=== PATIENT | female | born 1950 | race Caucasian/White ===

== ENCOUNTER → 2016-05-03 | Outpatient (REF) | payer MEDICARE, OTHER | LOC: M SFHCWAGY 13:38 | PROVIDERS: ATTEND Nurse Practitioner Women's Health | DX: Z12.4 Encounter for screening for malignant neoplasm of cervix (principal) ==

== ENCOUNTER → 2016-05-03 | Outpatient (CLI) | payer MEDICARE, BC ==
--- NOTE | 2016-05-03 14:54 | REPMRS ---
Patient History The patient states she had a clinical breast exam in 05/02 Patient is postmenopausal and had first child at age 36. No known family history of cancer. Digital Woman Screen Mammo: May 03, 2016 - Exam #: [id number] Bilateral CC and MLO view(s) were taken. Technologist: Poly Lawton, Technologist Prior study comparison: April 06, 2015, digital woman screen mammo performed at [facility] to [facility]. December 29, 2013, digital woman screen mammo performed at [facility] to [facility]. November 28, 2012, digital woman screen mammo performed at [facility] to [facility]. FINDINGS: There are scattered fibroglandular densities. There has been no change in the appearance of the mammogram from the prior studies. There is a mild amount of scattered fibroglandular density which is fairly symmetric. There is no interval development of dominant mass, architectural distortion, or clustered microcalcification suggestive of malignancy. ASSESSMENT: BI-RADS/ACR category 1 mammogram. Negative. Recommendation Routine screening mammogram in 1 year (for women over age 40). This mammogram was interpreted with the aid of an FDA-approved computer-aided dectection system. Electronically Signed By: Talon Tucker MD 05/03/16 [id number]
== END ==
LOC: M WHC 13:17
PROVIDERS: ATTEND Nurse Practitioner Women's Health
DX: Z12.31 Encounter for screening mammogram for malignant neoplasm of breast (principal); Z78.0 Asymptomatic menopausal state; Z12.4 Encounter for screening for malignant neoplasm of cervix
CPT/HCPCS: G0101; G0123; G0202

== ENCOUNTER → 2016-09-13 | Outpatient (RCR) | payer MEDICARE, BC, OTHER | END | disposition home or self-care (01) | LOC: M PT 08-23 11:27 → M OT 09-06 10:09 | PROVIDERS: ATTEND Family Medicine | DX: Z51.89 Encounter for other specified aftercare (principal); G45.9 Transient cerebral ischemic attack, unspecified | CPT/HCPCS: 97110; 97112; 97161; 97166; G8978; G8979; G8984; G8985 ==

== ENCOUNTER 2016-09-20 09:00 | Outpatient (RCR) | payer MEDICARE, BC, OTHER | END 2016-10-13 | LOC: M OT 09:00 | PROVIDERS: ATTEND Family Medicine | DX: Z51.89 Encounter for other specified aftercare (principal); G45.9 Transient cerebral ischemic attack, unspecified | CPT/HCPCS: 97110; 97112; G8979; G8980; G8984; G8985; G8986 ==

== ENCOUNTER → 2017-03-02 | Outpatient (CLI) | payer MEDICARE, BC, OTHER ==
--- NOTE | 2017-03-02 13:02 | REP ---
Clinical: Hypertension and high risk factors . Comparison: 02/12/2013. Technique: PA and lateral. Findings: The mediastinum and cardiac silhouette are normal. The lung corbett are clear and without acute consolidation, effusion, or pneumothorax. The skeletal structures are intact and normal. Impression: 1. No acute cardiopulmonary process. Signed by Josh Ford MD 03/02/2017 12:53 P
--- NOTE | 2017-03-02 13:08 | REP ---
Clinical: Thyroid nodules. Technique: Real time laughlin scale ultrasound examination using linear high frequency transducer. Findings: Thyroid gland is diffusely heterogeneous with multiple discrete nodules identified. The isthmus measures 1.4 mm in width. Right lobe measures 4.2 x 1.5 x 1.6 cm and includes 5.9 x 4.5 x 5.6 cm upper pole, 4.5 x 3.7 x 4.1 cm mid pole, and 18.3 x 9.5 x 12.6 mm lower pole solid nonspecific nodules Left lobe measures 4.0 x 1.2 x 1.4 cm and includes 4.3 x 2.7 x 3.0 cm upper pole, 8.0 x 3.1 x 4.8 cm and 8.7 x 4.6 x 8.4 mm mid pole solid nonspecific nodules. Impression: Multiple nonspecific thyroid nodules. Signed by Josh Ford MD 03/02/2017 12:59 P
== END ==
LOC: M RAD 12:24
PROVIDERS: ATTEND Internal Medicine Cardiovascular Disease
DX: E04.1 Nontoxic single thyroid nodule (principal); I10 Essential (primary) hypertension; Z87.891 Personal history of nicotine dependence

== ENCOUNTER → 2017-03-07 | Outpatient (REF) | payer MEDICARE, OTHER ==
[2017-03-07 10:54] LABS: ANION GAP 8 MEQ/L (8-16); BLOOD UREA NITROGEN 13 MG/DL (7-18); CALCIUM LEVEL 9.3 MG/DL (8.8-10.2); CARBON DIOXIDE LEVEL 29 MEQ/L (21-32); CHLORIDE LEVEL 97 MEQ/L (98-107); CREATININE FOR GFR 0.63 MG/DL (0.55-1.02); GLOMERULAR FILTRATION RATE > 60.0 (>45); GLUCOSE, FASTING 83 MG/DL (80-110); POTASSIUM SERUM 4.1 MEQ/L (3.5-5.1); SODIUM LEVEL 134 MEQ/L (136-145)
== END ==
LOC: M SFHCPLAZ 08:50
PROVIDERS: ATTEND Internal Medicine
DX: I10 Essential (primary) hypertension (principal)

== ENCOUNTER → 2017-04-02 | Outpatient (CLI) | payer MEDICARE, OTHER ==
[~2017-04-02] MED LIST: LIDOCAINE 1% MDV 20ML VIAL As Ordered ONE
--- NOTE | 2017-04-02 18:01 | REP ---
ULTRASOUND GUIDED BILATERAL THYROID BIOPSY: The procedure was performed under the direct supervision of Dr. Benjamin. The patient has a history of a 1.8 x 9.5 x 1.3 cm nodule in the right thyroid as well as a 9 x 5 x 8 mm nodule in the left thyroid seen on a previous ultrasound performed on 03/02/2017. The risks and benefits of the procedure were explained to the patient and informed consent was obtained. The bilateral nodules were localized using ultrasound guidance. The skin was prepped and draped in a sterile fashion. 1% Xylocaine was used as a local anesthetic. The left thyroid nodule was addressed first. Using ultrasound guidance four fine-needle aspirations were obtained using a 25-gauge needles. The right thyroid nodule was then addressed. Using ultrasound guidance four fine needle aspirations were obtained using 25-gauge needles. All samples were sent to the lab for analysis. The patient tolerated the procedure well and there were no immediate complications. After the appropriate amount of monitored convalescence the patient was discharged from the department. Reviewed by YAIR Ivory 04/04/2017 02:22 PEdited and Signed by Chadwick Benjamin MD 04/05/2017 08:21 P
== END ==
LOC: M RADPRO 08:11
PROVIDERS: ATTEND Family Medicine
DX: E04.1 Nontoxic single thyroid nodule (principal); Z87.891 Personal history of nicotine dependence; Z88.8 Allergy status to other drugs, medicaments and biological substances; Z88.1 Allergy status to other antibiotic agents; Z79.899 Other long term (current) drug therapy

== ENCOUNTER → 2017-07-04 | Outpatient (CLI) | payer MEDICARE, OTHER | LOC: M WHC 12:55 | DX: Z12.31 Encounter for screening mammogram for malignant neoplasm of breast (principal); Z78.0 Asymptomatic menopausal state | CPT/HCPCS: 77067 ==

== ENCOUNTER → 2017-08-23 | Outpatient (CLI) | payer MEDICARE, BC, OTHER ==
[2017-08-23 17:42] LABS: ANION GAP 7 MEQ/L (8-16); BLOOD UREA NITROGEN 17 MG/DL (7-18); CALCIUM LEVEL 9.1 MG/DL (8.8-10.2); CARBON DIOXIDE LEVEL 26 MEQ/L (21-32); CHLORIDE LEVEL 105 MEQ/L (98-107); CREATININE FOR GFR 0.76 MG/DL (0.55-1.30); GLOMERULAR FILTRATION RATE > 60.0 (>45); GLUCOSE, FASTING 93 MG/DL (70-100); POTASSIUM SERUM 4.2 MEQ/L (3.5-5.1); SODIUM LEVEL 138 MEQ/L (136-145)
== END ==
LOC: M WUC 13:29
DX: I10 Essential (primary) hypertension (principal)
CPT/HCPCS: 80048

== ENCOUNTER → 2018-02-20 | Outpatient (CLI) | payer MEDICARE, OTHER, BC ==
[2018-02-20 17:17] LABS: THYROXINE (T4) 5.8 UG/DL (4.5-12.0)
== END ==
LOC: M WUC 11:37
DX: E04.2 Nontoxic multinodular goiter (principal)
CPT/HCPCS: 84443

== ENCOUNTER → 2018-05-01 | Outpatient (REF) | payer MEDICARE, OTHER | LOC: M SFHCPLAZ 14:07 | PROVIDERS: ATTEND Family Medicine | DX: K52.9 Noninfective gastroenteritis and colitis, unspecified (principal) ==

== ENCOUNTER 2018-06-17 08:04 | Day surgery (SDC) | payer MEDICARE, BC, OTHER ==
[~2018-06-17] VITALS: Ht 162.6 cm; Wt 60.8 kg
[~2018-06-17 08:04] MED LIST changes: +AMLO10TA5 PO; +ATOR80TA59 PO; +COMB0.2S OU; -LIDOCAINE 1% MDV 20ML VIAL As Ordered ONE; +LOSA50TA88 PO; +NS 1,000 ML IV ONE; +OMEP40CA2 PO; +PARO5TAB PO
[2018-06-17] MEDS ORDERED: PROPOFOL 500 MG/50 ML VIAL As Ordered ONE (08:47)
[2018-06-17] MEDS ORDERED: LIDOCAINE 2% INJ 100 MG/5 ML SDV (FOR ANES.) As Ordered ONE (08:47)
--- NOTE | 2018-06-17 09:05 | ROOR ---
Patient Name: Cristina Parra Procedure Date: 06/17/2018 8:46 AM Date of : 1950 Age: 67 Room: [facility] Gender: Female Note Status: Finalized Procedure: Total Colonoscopy to Cecum Indications: Screening for colorectal malignant neoplasm Providers: Ruben Dean MD Referring MD: Ezequiel Herrera MD Requesting Provider: Medicines: Monitored Anesthesia Care Complications: No immediate complications. Procedure: Pre-Anesthesia Assessment: - The heart rate, respiratory rate, oxygen saturations, blood pressure, adequacy of pulmonary ventilation, and response to care were monitored throughout the procedure. The Colonoscope was introduced through the anus and advanced to the cecum, identified by appendiceal orifice and ileocecal valve. The colonoscopy was performed without difficulty. The patient tolerated the procedure well. The quality of the bowel preparation was excellent. Findings: The perianal and digital rectal examinations were normal. Non-bleeding internal hemorrhoids were found during retroflexion. The hemorrhoids were small and Grade I (internal hemorrhoids that do not prolapse). No other significant abnormalities were identified in a careful examination of the remainder of the colon. The exam was otherwise without abnormality on direct and retroflexion views. Impression: - Non-bleeding internal hemorrhoids. - The examination was otherwise normal on direct and retroflexion views. - No specimens collected. - The exam was otherwise normal to the cecum. Recommendation: - Patient has a contact number available for emergencies. The signs and symptoms of potential delayed complications were discussed with the patient. Return to normal activities tomorrow. Written discharge instructions were provided to the patient. - High fiber diet. - Discharge patient to home. - Continue present medications. - Repeat colonoscopy in 10 years for screening purposes. - Return to referring physician. - The findings and recommendations were discussed with the patient's family. Ruben Dean MD Ruben Dean MD 06/17/2018 9:05:14 AM This report has been signed electronically. Number of Addenda: 0 Note Initiated On: 06/17/2018 8:46 AM Estimated Blood Loss: Estimated blood loss: none.
[2018-06-17 09:25] VITALS: BP 147/82
== END 2018-06-17 09:31 | disposition home or self-care (01) ==
LOC: M OPP 08:04
PROVIDERS: ATTEND Internal Medicine Gastroenterology
DX: Z12.11 Encounter for screening for malignant neoplasm of colon (principal); K64.0 First degree hemorrhoids; R12 Heartburn; Z88.1 Allergy status to other antibiotic agents; Z79.899 Other long term (current) drug therapy; F17.210 Nicotine dependence, cigarettes, uncomplicated

== ENCOUNTER → 2018-07-05 | Outpatient (CLI) | payer MEDICARE, BC ==
[~2018-07-05] MED LIST changes: -NS 1,000 ML IV ONE
--- NOTE | 2018-07-05 18:21 | REPMRS ---
Patient History The patient states she had a clinical breast exam in 06/2018. No known family history of cancer. 3D TOMOSYNTHESIS WAS PERFORMED. Digital Woman Screen Mammo: July 05, 2018 - Exam #: [id number] Bilateral CC and MLO view(s) were taken. Technologist: Tonia Villasenor Technologist Prior study comparison: July 04, 2017, digital woman screen mammo performed at [facility] to [facility]. May 03, 2016, digital woman screen mammo performed at [facility] to [facility]. FINDINGS: There are scattered fibroglandular densities. There has been no change in the appearance of the mammogram from the prior studies. There is a mild amount of residual fibroglandular tissue which is fairly symmetric. There is no interval development of dominant mass, architectural distortion, or clustered microcalcification suggestive of malignancy. Assessment: BI-RADS/ACR category 1 mammogram. Negative Mammogram. Recommendation Routine screening mammogram in 1 year (for women over age 40). This mammogram was interpreted with the aid of an FDA-approved computer-aided dectection system. Electronically Signed By: Chadwick Benjamin MD 07/05/18 [id number]
== END ==
LOC: M WHC 13:17
PROVIDERS: ATTEND Nurse Practitioner Women's Health
DX: Z01.419 Encounter for gynecological examination (general) (routine) without abnormal findings (principal); Z12.31 Encounter for screening mammogram for malignant neoplasm of breast
CPT/HCPCS: 77063; 77067; G0101

== ENCOUNTER → 2019-11-06 | Outpatient (CLI) | payer MEDICARE, BC ==
[~2019-11-06] MED LIST changes: -AMLO10TA5 PO; +AMLO1TAB25 PO; -OMEP40CA2 PO; +OMEP40CA97 PO
--- NOTE | 2019-12-11 15:43 | DEXA ---
AP SPINE L1 - L4 1.010 -1.5 0.2 LT FEMUR TOTAL 0.721 -2.3 -0.9 LT NECK 0.747 -2.1 -0.5 RT FEMUR TOTAL 0.707 -2.4 -1.0 RT NECK 0.976 -0.4 1.2 TOTAL BODY TOTAL OTHER COMMENTS: There is low bone density of the spine and hips, The density of the spine has increased 2.2% since the initial exam on 11/01/1999. The increased 6.5% since the most recent exam on 08/23/2010. The density of the left hip has decreased 11.1% since the initial exam on 11/01/1999. The density of the left hip has decreased 5.1% since the most recent exam on 08/23/2010. The density of the right hip has decreased 13.1% since the initial exam on 11/01/1999. The density of the right hip has decreased 4.6% since the most recent exam on 08/23/2010. FOLLOW-UP: Recommendation for the next bone density exam: 2 years. KEIRY
== END ==
LOC: M WHC 10:19
PROVIDERS: ATTEND Nurse Practitioner Women's Health
DX: Z12.31 Encounter for screening mammogram for malignant neoplasm of breast (principal); Z78.0 Asymptomatic menopausal state
CPT/HCPCS: 77063; 77067; 77080; G0463

== ENCOUNTER → 2020-01-20 | Outpatient (CLI) | payer MEDICARE, BC, OTHER ==
[2020-01-20 13:37] LABS: ALT/SGPT 17 U/L (12-78); BILIRUBIN,TOTAL 0.3 MG/DL (0.2-1.0); BLOOD UREA NITROGEN 14 MG/DL (7-18); CARBON DIOXIDE LEVEL 28 MEQ/L (21-32); CHLORIDE LEVEL 103 MEQ/L (98-107); CHOLESTEROL LEVEL 278 MG/DL (<200); CHOLESTEROL RISK RATIO 3.195 (<5); CREATININE FOR GFR 0.76 MG/DL (0.55-1.30); GLOMERULAR FILTRATION RATE > 60.0 (>45); GLUCOSE, FASTING 99 MG/DL (70-100); HDL CHOLESTEROL 87 MG/DL (>40); LDL CHOLESTEROL 169 MG/DL (<100); NON-HDL-C 191 MG/DL; POTASSIUM SERUM 4.7 MEQ/L (3.5-5.1); SODIUM LEVEL 138 MEQ/L (136-145); TOTAL PROTEIN 7.4 GM/DL (6.4-8.2); TRIGLYCERIDES LEVEL 109 MG/DL (<150)
== END ==
LOC: M PLALAB 08:31
PROVIDERS: ATTEND Physician Assistant
DX: Z00.00 Encounter for general adult medical examination without abnormal findings (principal); E78.2 Mixed hyperlipidemia

== ENCOUNTER 2020-06-09 19:24 | Inpatient (IN) | payer MEDICARE, BC, OTHER ==
[~2020-06-09] VITALS: Ht 162.6 cm; Wt 70.2 kg
--- OUTSIDE RECORDS SUMMARY | 2020-06-09 19:29 | CCD ---
Author Author [facility] Organization 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 Carding Machine Operator Name Role Phone Arlette Mullen Unavailable PROBLEMS Type Condition ICD9-CM Code QNC48-DQ Code Onset Dates Condition S tatus W/U Status Risk SNOMED Code Notes Problem Osteoporosis M81.0 Active confirmed 1212431 6 Problem Hemorrhoids K64.9 Active confirmed 25690399 Problem Hypertension I10 Active confirmed 7668550 3 Problem Thyroid nodule E04.1 Active confirmed 92212 5005 Problem Smoker unmotivated to quit F17.200 Active confirmed 38475139 Problem Depression F32.9 Active confirmed 71062227 Problem Low back pain M54.5 Active confirmed 554745 007 Problem Tobacco use disorder Z72.0 Active confirmed 26877528 Problem Cerebrovascular accident (CVA), unspecified mechanism I63.9 Active confirmed 664471987 ALLERGIES Allergen (clinical drug ingredient) Drug/Non Drug Allergy do cumented on EMR Reaction Allergy Type Onset Date Status risedronate Actonel(NDC Code:[address]-37) explosive diarrhea Drug A llergy Active raloxifene Evista(NDC Code:[address]-15) persistent vomiting Drug Al lergy Active erythromycin Erythromycin(ND Code:[address]-03) hives,rash all over Drug Allergy Active ENCOUNTERS from 1950 to 2020-05-25 Encounter Location Date Provider Diagnosis [facility] Resident [address] [place] [address] 08 May, 2020 Arlette Sebas Allergic conjunctivitis of b oth eyes H10.13 and Contact dermatitis and eczema L25.9 IMMUNIZATIONS Vaccine Route Administration Date Status Influenza (18 yrs & older) Flublok IM Intramuscular Jan 16, 2019 Administered Influenza (High Dose 65 & up) IM Intramuscular Feb 12, 2017 A dministered Influenza (High Dose 65 & up) IM Intramuscular Mar 06, 2016 A dministered Zoster 0.65mL (Zostavax) Unknown Feb 03, 2015 Adminis tered Pneumococcal Adult 0.5mL (Pneumovax 23) IM Intramuscular Jan 16, 2019 Administered Pneumococcal 0.5mL (Prevnar 13) IM Intramuscular Feb 12, 2017 Administered Influenza (6mo & up) Fluzone IM Intramuscular Feb 03, 2015 Ad ministered Influenza (6mo & up) Fluzone IM Intramuscular Jan 21, 2013 Ad ministered SOCIAL HISTORY Tobacco Use: Social History Observation Description Date Details (start date - stop date) Former Smoker Sex Assigned At : Social History Observation Description Sex Assigned At Unknown Education: Question Answer Notes Level of Education: High School Audit Question Answer Notes Total Score: 4 Interpretation: Alcohol Education Roman Catholic: Question Answer Notes Roman Catholic 21 Gnosticist Sexual Hx: Question Answer Notes Had sex in the last 12 months (vaginal, oral, or anal)? No LMP: post menopause Have you ever had an STD? No Drug and Alcohol Question Answer Notes Total Score: 0 Interpretation: No problems reported Alcohol Screening: Question Answer Notes Did you have a drink containing alcohol in the past year? Ye s Points 4 Interpretation Positive How often did you have six or more drinks on one occas ion in the past year? Never (0 points) How many drinks did you have on a typica l day when you were drinking in the past year? 1 or 2 (0 points) How often did you have a drink containing alcohol in t he past year? Four or more times a week (4 points) Tobacco Use: Question Answer Notes Are you a: former smoker How long has it been since you last smoked? 1-5 years August 2016 REASON FOR REFERRAL No Information VITAL SIGNS No information MEDICATIONS Medication SIG (Take, Route, Frequency, Duration) Notes Start Da te End Date Status Olopatadine HCl 0.1 % 1 drop into affected eye Oph thalmic Twice a day for 30 Days May, Active Senokot S 8.6-50 MG 1 tablet in the evening as n eeded Orally Once a day for 30 day(s) Jan, Not-Taking Nicoderm CQ 14 MG/24HR 1 patch to skin Transdermal Once a day fo r 30 day(s) August, Not-Taking Vitamin D (Cholecalciferol) 1000 UNIT 1 capsule Orally Once a day Active Blood Pressure Cuff 1 as directed Left Arm Daily for 30 day(s) Active Losartan Potassium 50 MG 1 tablet Orally Once a day Active Lipitor 80 MG 1 tablet Orally Once a day for 90 days 21 2015 Active Paxil 10 mg 1 tablet Orally Once a day for 90 days Active Calcium 600 + D 600-400 MG-UNIT 1 tablet Orally Once a day Not-Taking Omeprazole 40 MG 1 capsule Orally Once a day for 90 days Active Aleve 220 MG 1 tablet Orally every 12 hrs as needed Active Simvastatin 10 MG 1 tablet in the evening Orally Once a day for 90 day(s) Jan, Active AmLODIPine Besylate 10 MG 1 tablet Orally Once a day 2016 Active Combigan 0.2-0.5 % 1 drop into affected eye Ophthalmic once a day Not-Taking Triamcinolone Acetonide 0.025 % 1 application External ly Once a day for 7 day(s) May, Active PROCEDURES No Information RESULTS No Results REASON FOR VISIT refill MEDICAL (GENERAL) HISTORY Type Description Date Medical History DDD Medical History Glaucoma Medical History Depression Medical History Hiatal Hernia Medical History GERD Medical History Osteoarthritis Medical History Osteoporosis Medical History Patient has 12.1% ASCVD risk 2012 Medical History Closed rib fracture. Medical History CVA 08/30 Surgical History eye surgery as a child Hospitalization History Stroke 08/15/16-08/18/16 Goals Section No Information Health Concerns No Information MEDICAL EQUIPMENT No Information MENTAL STATUS No Information FUNCTIONAL STATUS No Information ASSESSMENTS Encounter Date Diagnosis Assessment Notes Treatment Notes Treatm ent Clinical Notes May, Allergic conjunctivitis of both eyes (ICD-10 - H 10.13) May, Contact dermatitis and eczema (ICD-10 - L25.9) PLAN OF TREATMENT Medication Medication Name Sig Start Date Stop Date Olopatadine HCl 0.1 % 1 drop into affected eye Oph thalmic Twice a day for 30 Days May, Triamcinolone Acetonide 0.025 % 1 application External ly Once a day for 7 day(s) May, Insurance Providers Payer Name Payer Address Payer Phone Insured Name Patient Relati onship to Insured Coverage Start Date Coverage End Date MEDICARE Part A and B [address] [facility] [id number] [phone] TRANG DELGADO [facility] [address] [facility] [id number] [phone] TRANG DELGADO [id number]
--- OUTSIDE RECORDS SUMMARY | 2020-06-09 19:29 | CCD ---
Continuity of Care Document (CCD) Created on: 03/30/2020 Cristina Parra External Reference #: [id number] : 1950 Sex: Female Author Author Cristina GRECO PA Organization Unknown Address [address] [place] [address], [facility] [place] [address] Phone [phone] Care Team Providers Care Epic Cadence Analyst Name Role Phone Janie Ann SHILPI AUTM [phone] Arlette Mullen PA-C AUTM [phone] Problems Active Problems Provider Date Cerebrovascular disease Srikanth Taylor MD Onset: 7 Electrocardiogram abnormal Srikanth Taylor MD Onset: 2016 Essential hypertension Srikanth Taylor MD Onset: 02/26/2017 Mitral valve disorder Srikanth Taylor MD Onset: 02/26/2017 Ex-smoker Srikanth Taylor MD Onset: 02/26/2017 Difficulty breathing Srikanth Taylor MD Onset: 05/15/2017 Non-toxic multinodular goiter Srikanth Taylor MD Onset: Benign hypertensive heart disease without congestive h eart failure Srikanth Taylor MD Onset: 05/15/2017 Heart murmur Srikanth Taylor MD Onset: 05/15/2017 Dizziness and giddiness Srikanth Taylor MD Onset: 8 Dietary management surveillance SIRISHA Ascencio Onset: 03/13/2018 Obesity SIRISHA Ascencio Onset: 03/17/2019 Social History Type Date Description Comments Sex Unknown ETOH Use Wine about 10 glasses per week Tobacco Use Start: Unknown Patient is a current smoker, smo kes every day currently 1/4 to 1/2 ppd, in past at most up to 1 ppd, since age 18 Smoking Status Reviewed: 03/30/20 Patient is a current smoker, smokes every day currently 1/4 to 1/2 ppd, in past at most up to 1 ppd, since age 18 Exercise Type/Frequency Fully active: Ab le to carry on all performance without restriction Exercise Type/Frequency Does housework daily Exercise Type/Frequency Walks sporadically Exercise Limitations Back Pain Exercise Limitations Imbalance Allergies, Adverse Reactions, Alerts Active Allergies Reaction Severity Comments Date Erythromycin rash 02/26/2017 Medications Active Medications SIG Qnty Indications Ordering Provide r Date Simvastatin 10mg Tablets 1 by mouth every day at bedtime Arlette Mullen PA-C 03/29/2020 Vitamin C 500mg Tablets 1 by mouth every day Unknown 03/29/2020 Vitamin D 25mcg (1000 Ut) Tablets 1 by mouth every day Unknown 03/29/2020 Benadryl Allergy 25mg Tablets 1 by mouth daily at bedtime as needed Unknown 03/29 Travatan Z 0.004% Solution one drop both eyes at bedtime Janie Ann Y, OD 03/16/2019 Amlodipine Besylate 10mg Tablets 1 by mouth every day 90tabs Srikanth Taylor MD 08/24/2017 Aspirin Adult Low Dose 81mg Tablet s DR 1 by mouth every other day Unknown 018 Losartan Potassium 50mg Tablets 1 by mouth every day 90tabs Srikanth Taylor MD 05/15/2017 Paxil 10mg Tablets 1 by mo uth every day Unknown 02/25/[address] 1 by mouth every day Unknown 02/25/2017 Aleve 220mg Capsules as neede d Unknown 02/25/2017 Combigan 0.2-0.5% Solution 1 drop each eye twice a day Unknown 02/25/2017 Immunizations Description No Information Available Vital Signs Date Vital Result Comment 03/30/2020 11:18am Weight 130.00 lb Height 64 inches 5'4" BMI (Body Mass Index) 22.3 kg/m2 03/17/2019 11:25am Weight 132.00 lb Height 64 inches 5'4" BMI (Body Mass Index) 22.7 kg/m2 Heart Rate 69 /min BP Systolic Sitting 120 mmHg adult cuff, Ra BP Diastolic Sitting 66 mmHg adult cuff, Ra Results Test Acquired Date Facility Test Result H/L Range Note CMP 01/20/2020 [facility] - not interfaced (315)- - Albumin Serum/Plasma 4.0 Alt - SGPT 17 Calcium Ser/Plasma Mass/Vol 10.0 Carbon Dioxide Ser/Plasm 28 Chloride Serum/Plasma 103 Alkaline Phosphatase 56 Potassium 4.7 Protein Total 7.4 Sodium 138 Ast - Sgot 18 BUN - Urea Nitrogen 14 Glucose 99 70-100 Creatinine For GFR >60.0 Lipid Profile/Cardiac Risk Pro 01/20/2020 [facility] - not interfaced (315)- - Triglycerides 109 <150 Cholesterol 278 High <200 HDL 87 >40.0 LDL Cholesterol 169 Chol/HDL Ratio 3.195 <5 Procedures Description No Information Available Medical Devices Description No Information Available Encounters Description No Information Available Assessments Date Code Description Provider 03/30/2020 I11.9 Hypertensive heart disease witho ut heart failure SIRISHA Raphael 03/30/2020 R94.31 Abnormal electrocardiogram [ECG] [EKG] SIRISHA Raphael 03/30/2020 Z71.3 Dietary counseling and surveilla nce SIRISHA Raphael Plan of Treatment Future Appointment(s):* 03/31/2021 10:45 am - SIRISHA Raphael at Main Office 03/30/2020 - SIRISHA Raphael* I11.9 Hypertensive heart disease without heart failure * R94.31 Abnormal electrocardiogram [ECG] [EKG] * Z71.3 Dietary counseling and surveillance * All * Follow up:* Follow up in 1 year Functional Status Functional Condition Comment Date Status Independent with all ADL's Activ e Mental Status Description No Information Available Referrals Description No Information Available
--- OUTSIDE RECORDS SUMMARY | 2020-06-09 19:30 | CCD | Continuity of Care Document ---
Author Organization Unknown Address Unknown Phone Unavailable Care Team Providers Care Tour Narrator Name Role Phone Ezequiel Herrera MD AUTM [phone] Ann Janie Marcus DOBBINS AUTM [phone] Problems Active Problems Provider Date Cerebrovascular disease [...] glasses per week Tobacco Use Start: Unknown End: Unknown Patient is a former smoker Started smoking at age 18, stopped at age 65, smoked up to 1/2 to 1ppd Tobacco Use Start: Unknown Patient is a current smoker, smo kes some days depends on the day Smoking Status Reviewed: 03/17/19 Patient is a current smoker, smokes some days depends on the day Exercise Type/Frequency Fully active: Ab le to carry on all performance without restriction Exercise Type/Frequency Does housework daily Exercise Type/Frequency Walks sporadically Exercise Limitations Back Pain Exercise Limitations Imbalance Allergies, Adverse Reactions, Alerts Active Allergies Reaction Severity Comments Date Erythromycin rash 02/26/2017 Medications Active Medications SIG Qnty Indications Ordering Provide r Date Travatan Z 0.004% Solution one drop both eyes at bedtime AnnJanie Y, OD 03/16/2019 Amlodipine Besylate 10mg Tablets 1 by mouth every day 90tabs Srikanth Taylor MD 08/24/2017 Aspirin Adult Low Dose 81mg Tablet s DR 1 by mouth every other day Unknown 018 Losartan Potassium 50mg Tablets 1 by mouth every day 90tabs Srikanth Taylor MD 05/15/2017 Lipitor 80mg Tablets 1 by mouth every day Unknown 02/25/2017 Paxil 10mg Tablets 1 by mo uth every day Unknown 02/25/[address] 1 by mouth every day Unknown 02/25/2017 Aleve 220mg Capsules as neede d Unknown 02/25/2017 Combigan 0.2-0.5% Solution 1 drop each eye twice a day Unknown 02/25/2017 Immunizations Description No Information Available Vital Signs Date Vital Result Comment 03/17/2019 11:25am Weight 132.00 lb Height 64 inches 5'4" BMI (Body Mass Index) 22.7 kg/m2 Heart Rate 69 /min BP Systolic Sitting 120 mmHg adult cuff, Ra BP Diastolic Sitting 66 mmHg adult cuff, Ra 03/13/2018 11:14am Weight 146.00 lb Height 64 inches 5'4" BMI (Body Mass Index) 25.1 kg/m2 BP Systolic Sitting 124 mmHg adult cuff/LA BP Diastolic Sitting 76 mmHg adult cuff/LA Results Test Acquired Date Facility Test Result H/L Range Note CMP 01/20/2020 [facility] - not interfaced (315)- - Albumin Serum/Plasma 4.0 Alt - SGPT 17 Calcium Ser/Plasma Mass/Vol 10.0 Carbon Dioxide Ser/Plasm 28 Chloride Serum/Plasma 103 Alkaline Phosphatase 56 Potassium 4.7 Protein Total 7.4 Sodium 138 Ast - Sgot 18 BUN - Urea Nitrogen 14 Glucose 99 70-100 Creatinine For GFR >60.0 Lipid Profile/Cardiac Risk Pro 01/20/2020 [facility] - not interfaced (315)- - Triglycerides 109 <150 Cholesterol 278 High <200 HDL 87 >40.0 LDL Cholesterol 169 Chol/HDL Ratio 3.195 <5 Procedures Description No Information Available Medical Devices Description No Information Available Encounters Description No Information Available Assessments Description No Information Available Plan of Treatment Future Appointment(s):* 03/30/2020 10:45 am - SIRISHA Raphael at Main Office 03/17/2019 - SIRISHA Ascencio* I11.9 Hypertensive heart disease without heart failure * R94.31 Abnormal electrocardiogram [ECG] [EKG]* Recommendations:* No significant change. No further workup required. * Z71.3 Dietary counseling and surveillance* Recommendations:* Recommend adopting a more whole foods, plant-based diet in addition to moderate exercise a minimum of 30 minutes 6 days a week. In order to optimize cardiovascular health please be conscious of processed foods, alcohol (no more than two dr inks a day for men and one drink a day for women), salt (<2000 mg/d), oils, saturated fat/animal products, and highly refined carbohydrates such as breads, pastas, and sweets. * All * Follow up:* Follow up in 12 months. Functional Status Functional Condition Comment Date Status Independent with all ADL's Activ e Mental Status Description No Information Available Referrals Description No Information Available
--- OUTSIDE RECORDS SUMMARY | 2020-06-09 19:30 | CCD ---
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 Name Role Phone BRI, A EVARISTO PA Unavailable Unavailable LETTIERE, A EVARISTO PA Unavailable Unavailable LETTIERE, A EVARISTO PA Unavailable Unavailable LETTIERE, A EVARISTO PA Unavailable Unavailable LETTIERE, A EVARISTO PA Unavailable Unavailable LETTIERE, A EVARISTO PA Unavailable Unavailable LETTIERE, A EVARISTO PA Unavailable Unavailable LETTIERE, A EVARISTO PA Unavailable Unavailable LETTIERE, A EVARISTO PA Unavailable Unavailable LETTIERE, A EVARISTO PA Unavailable Unavailable LETTIERE, A EVARISTO PA Unavailable Unavailable LETTIERE, A EVARISTO PA Unavailable Unavailable LETTIERE, A EVARISTO PA Unavailable Unavailable LETTIERE, A EVARISTO PA Unavailable Unavailable LETTIERE, A EVARISTO PA Unavailable Unavailable LETTIERE, A EVARISTO PA Unavailable Unavailable LETTIERE, A EVARISTO PA Unavailable Unavailable LETTIERE, A EVARISTO PA Unavailable Unavailable LETTIERE, A EVARISTO PA Unavailable Unavailable LETTIERE, A EVARISTO PA Unavailable Unavailable LETTIERE, A EVARISTO PA Unavailable Unavailable LETTIERE, A EVARISTO PA Unavailable Unavailable LETTIERE, A EVARISTO PA Unavailable Unavailable LETTIERE, A EVARISTO PA Unavailable Unavailable LETTIERE, A EVARISTO PA Unavailable Unavailable LETTIERE, A EVARISTO PA Unavailable Unavailable LETTIERE, A EVARISTO PA Unavailable Unavailable LETTIERE, A EVARISTO PA Unavailable Unavailable LETTIERE, A EVARISTO PA Unavailable Unavailable Re-disclosure Warning The records that you are about to access may contain information from federally-assisted alcohol or drug abuse programs. If such information is present, then the following federally mandated warning applies: This information has been disclosed to you from records protected by federal confidentiality rules (42 CFR part 2). The federal rules prohibit you from making any further disclosure of this information unless further disclosure is expressly permitted by the written consent of the person to whom it pertains or as otherwise permitted by 42 CFR part 2. A general authorization for the release of medical or other information is NOT sufficient for this purpose. The Federal rules restrict any use of the information to criminally investigate or prosecute any alcohol or drug abuse patient.The records that you are about to access may contain highly sensitive health information, the redisclosure of which is protected by Article 27-F of the [facility] Public Health law. If you continue you may have access to information: Regarding HIV / AIDS; Provided by facilities licensed or operated by the [facility] Office of Mental Health; or Provided by the [facility] Office for People With Developmental Disabilities. If such information is present, then the following [facility] mandated warning applies: This information has been disclosed to you from confidential records which are protected by state law. State law prohibits you from making any further disclosure of this information without the specific written consent of the person to whom it pertains, or as otherwise permitted by law. Any unauthorized further disclosure in violation of state law may result in a fine or assisted sentence or both. A general authorization for the release of medical or other information is NOT sufficient authorization for further disc losure. Family History Family Member Name Family Member Gender Family Member Status Date o f Status Description Data Source(s) Unknown Male Problem MEDENT ([facility]) Unknown Male Problem MEDENT ([facility]) at age 63 Unknown Female Problem MEDENT ([facility], [facility]) Encounters Encounter Providers Location Date Indications Data Source(s ) Unknown [address] [facility] [place] [address] 05/24/2020 12:00:00 AM EST eCW1 ([facility]) Unknown [address] [facility] [place] [address] 02/09/2020 12:00:00 AM EDT eCW1 ([facility]) Unknown [address] [facility] [place] [address] 02/02/2020 12:00:00 AM EDT eCW1 ([facility]) Outpatient Attender: EVARISTO grewal 11/19/2019 11:50:00 AM EDT MEDENT ([facility]) ( [place]) [facility] 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 Exam [address] [place] [address] 11/06/2019 12:00:00 AM EDT eCW1 ([facility]) [facility] [place] [address] [facility] [place] [address] 07/14/2019 12:00:00 AM EDT eCW1 ([facility]) [facility] [address] [place] [address] 07/08/2019 12:00:00 AM EDT eCW1 ([facility]) Immunizations Vaccine Date Status Description Data Source(s) Tdap 11/19/2019 12:05:00 PM EDT completed M EDENT ([facility], [facility]) Medications Medication Brand Name Start Date Product Form Dose Route Admi nistrative Instructions Pharmacy Instructions Status Indications Reaction Description Data Source(s) olopatadine 1 MG/ML Ophthalmic Solution 0.1 % OLOPATADINE HC L 05/25/2020 12:00:00 AM EST drops 5 INSTILL ONE DROP TWO TIME S A DAY IN THE AFFECTED EYE INSTILL ONE DROP TWO TIMES A DAY IN THE AFFECTED EYE SOLD: 05/26/2020 [facility] 0.025 % 05/25/2020 12:00:00 AM EST cream 15 APPLY ONCE DAILY FOR 7 DAYS APPLY ONCE DAILY FOR 7 DAYS SOLD: 05/26/2020 [facility] olopatadine 1 MG/ML Ophthalmic Solution Olopatadine HC l 0.1 % Olopatadine HCl 0.1 % 05/21/2020 12:00:00 AM EST 1.0 {drop_into_affected_eye} active Olopatadine HCl 0.1 % eCW1 ([facility]) Triamcinolone Acetonide 0.25 MG/ML Topic al Lotion Triamcinolone Acetonide 0.025 % Triamcinolone Acetonide 0.025 % 05/21/2020 12:00:00 AM EST 1.0 {application} active Triamcinolone Acetonide 0.025 % eCW1 ([facility]) 0.5 % 04/30/2020 12:00:00 AM EST drops 15 INSTILL ONE DROP INTO EACH EYE TWO TIMES A DAY DIRECTED INSTILL ONE DROP INTO EACH EYE TWO TIMES A DAY DIRECTED SOLD: 05/01/2020 [facility] 3.5-400-10,000 [id number] 04/13/2020 12:00:00 AM EST oin tment 3 APPLY A THIN LAYER INTO LEFT EYE TWO TIMES A DAY APPLY A THIN LAYER INTO LEFT EYE TWO TIMES A DAY SOLD: 04/13/2020 [facility] Diphenhydramine Hydrochloride 25 MG Oral Tablet [Benadryl] B enadryl Allergy 03/29/2020 12:00:00 AM EST ORAL active MEDENT ([facility]) Cholecalciferol 1000 UNT Oral Tablet Vitamin D 03/29/2020 12:00:00 A M EST ORAL active MEDENT ([facility]) Simvastatin 10 MG Oral Tablet Simvastatin 03/29/2020 12:00:00 AM EST ORAL active MEDENT ([facility]) Ascorbic Acid 500 MG Oral Tablet Vitamin C 03/29/2020 12:00:00 AM EST ORAL active MED[facility] ([facility]) 10 mg 03/19/2020 12:00:00 AM EST tablet 90 TAKE ONE TABLET BY MOUTH EVERY DAY TAKE ONE TABLET BY MOUTH EVERY DAY SOLD: 03/20/2020 [facility] 50 mg 03/19/2020 12:00:00 AM EST tablet 90 TAKE ONE TABLET BY MOUTH EVERY DAY TAKE ONE TABLET BY MOUTH EVERY DAY SOLD: 03/20/2020 [facility] 10 mg 02/11/2020 12:00:00 AM EDT tablet 90 TAKE ONE TABLET BY MOUTH EVERY EVENING TAKE ONE TABLET BY MOUTH EVERY EVENING SOLD: 02/12/2020 [facility] 10 mg 02/11/2020 12:00:00 AM EDT tablet 90 TAKE ONE TABLET BY MOUTH EVERY EVENING TAKE ONE TABLET BY MOUTH EVERY EVENING SOLD: 05/19/2020 [facility] Paroxetine Hydrochloride 10 MG Oral Tablet PAROXETINE HCL 02/10/2020 12:00:00 AM EDT tablet 90 TAKE ONE TABLET BY MOUTH ONC E DAILY TAKE ONE TABLET BY MOUTH ONCE DAILY SOLD: 05/19/2020 [facility] Paroxetine Hydrochloride 10 MG Oral Tablet PAROXETINE HCL 02/10/2020 12:00:00 AM EDT tablet 90 TAKE ONE TABLET BY MOUTH ONC E DAILY TAKE ONE TABLET BY MOUTH ONCE DAILY SOLD: 02/11/2020 [facility] Simvastatin 10 MG Oral Tablet Simvastatin 10 MG 02/10/2020 12:00:00 AM EDT 1.0 {tablet_in_the_evening} active Simvast atin 10 MG eCW1 ([facility]) Simvastatin 10 MG Oral Tablet Simvastatin 10 MG 02/10/2020 12:00:00 AM EDT 1.0 {tablet_in_the_evening} active Simvast atin 10 MG eCW1 ([facility]) 40 mg 02/10/2020 12:00:00 AM EDT capsule,delayed release (DR/EC) 90 TAKE ONE CAPSULE BY MOUTH ONCE DAILY TAKE ONE CAPSULE BY MOUTH ONCE DAILY SOLD: 02/11/2020 [facility] 40 mg 02/10/2020 12:00:00 AM EDT capsule,delayed release (DR/EC) 90 TAKE ONE CAPSULE BY MOUTH ONCE DAILY TAKE ONE CAPSULE BY MOUTH ONCE DAILY SOLD: 05/23/2020 [facility] Simvastatin 10 MG Oral Tablet Simvastatin 10 MG 02/10/2020 12:00:00 AM EDT 1.0 {tablet_in_the_evening} active Simvast atin 10 MG eCW1 ([facility]) 0.2-0.5 % 12/12/2019 12:00:00 AM EDT drops 30 INSTILL ONE DROP INTO EACH EYE TWO TIMES A DAY DIRECTED INSTILL ONE DROP INTO EACH EYE TWO TIMES A DAY DIRECTED SOLD: 12/15/2019 [facility] 0.004 % 12/12/2019 12:00:00 AM EDT drops 2 INSTILL ONE DROP INTO EACH EYE ONCE DAILY AT BEDTIME DIRECTED INSTILL ONE DROP INTO EACH EYE ONCE LENY Y AT BEDTIME DIRECTED SOLD: 12/15/2019 [facility] 0.004 % 12/12/2019 12:00:00 AM EDT drops 2 INSTILL ONE DROP INTO EACH EYE ONCE DAILY AT BEDTIME DIRECTED INSTILL ONE DROP INTO EACH EYE ONCE LENY Y AT BEDTIME DIRECTED SOLD: 03/20/2020 [facility] 0.004 % 12/12/2019 12:00:00 AM EDT drops 2 INSTILL ONE DROP INTO EACH EYE ONCE DAILY AT BEDTIME DIRECTED INSTILL ONE DROP INTO EACH EYE ONCE LENY Y AT BEDTIME DIRECTED SOLD: 05/11/2020 [facility] Cephalexin 500 MG Oral Capsule CEPHALEXIN 11/19/2019 12:00:00 AM EDT capsule 40 TAKE TWO CAPSULES BY MOUTH TWICE A DAY FOR 10 DAYS JOANNA E TWO CAPSULES BY MOUTH TWICE A DAY FOR 10 DAYS SOLD: 11/19/2019 [facility] Cephalexin 500 MG Oral Tablet Cephalexin 11/19/2019 12:00:00 AM EDT ORAL active MEDENT ([facility]) 10 mg 09/09/2019 12:00:00 AM EDT tablet 90 TAKE ONE TABLET BY MOUTH EVERY DAY TAKE ONE TABLET BY MOUTH EVERY DAY SOLD: 09/11/2019 [facility] Paroxetine Hydrochloride 10 MG Oral Tablet PAROXETINE HCL 09/09/2019 12:00:00 AM EDT tablet 90 TAKE ONE TABLET BY MOUTH MELODY DAY TAKE ONE TABLET BY MOUTH EVERY DAY SOLD: 12/05/2019 [facility] 80 mg 08/25/2019 12:00:00 AM EDT tablet 90 TAKE ONE TABLET BY MOUTH EVERY DAY TAKE ONE TABLET BY MOUTH EVERY DAY SOLD: 08/26/2019 [facility] 40 mg 07/15/2019 12:00:00 AM EDT capsule,delayed release (DR/EC) 90 TAKE ONE CAPSULE BY MOUTH EVERY DAY TAKE ONE CAPSULE BY MOUTH EVERY DAY SOLD: 07/18/2019 [facility] 40 mg 07/15/2019 12:00:00 AM EDT capsule,delayed release (DR/EC) 90 TAKE ONE CAPSULE BY MOUTH EVERY DAY TAKE ONE CAPSULE BY MOUTH EVERY DAY SOLD: 10/21/2019 [facility] 10 mg 06/02/2019 12:00:00 AM EST tablet 90 TAKE ONE TABLET BY MOUTH EVERY DAY TAKE ONE TABLET BY MOUTH EVERY DAY SOLD: 06/02/2019 [facility] 80 mg 05/26/2019 12:00:00 AM EST tablet 90 TAKE ONE TABLET BY MOUTH EVERY DAY TAKE ONE TABLET BY MOUTH EVERY DAY SOLD: 05/27/2019 [facility] 10 mg 03/27/2019 12:00:00 AM EST tablet 90 TAKE ONE TABLET BY MOUTH EVERY DAY TAKE ONE TABLET BY MOUTH EVERY DAY SOLD: 12/27/2019 [facility] 10 mg 03/27/2019 12:00:00 AM EST tablet 90 TAKE ONE TABLET BY MOUTH EVERY DAY TAKE ONE TABLET BY MOUTH EVERY DAY SOLD: 06/26/2019 [facility] 10 mg 03/27/2019 12:00:00 AM EST tablet 90 TAKE ONE TABLET BY MOUTH EVERY DAY TAKE ONE TABLET BY MOUTH EVERY DAY SOLD: 09/26/2019 [facility] 50 mg 03/27/2019 12:00:00 AM EST tablet 90 TAKE ONE TABLET BY MOUTH EVERY DAY TAKE ONE TABLET BY MOUTH EVERY DAY SOLD: 09/26/2019 [facility] 50 mg 03/27/2019 12:00:00 AM EST tablet 90 TAKE ONE TABLET BY MOUTH EVERY DAY TAKE ONE TABLET BY MOUTH EVERY DAY SOLD: 12/27/2019 [facility] 50 mg 03/27/2019 12:00:00 AM EST tablet 90 TAKE ONE TABLET BY MOUTH EVERY DAY TAKE ONE TABLET BY MOUTH EVERY DAY SOLD: 06/26/2019 [facility] 0.004 % 01/21/2019 12:00:00 AM EDT drops 2 INSTILL 1 DROP IN EACH EYE AT BEDTIME DIRECTED INSTILL 1 DROP IN EACH EYE AT BEDTIME DIRECTED SOLD : 12/04/2019 [facility] 0.004 % 01/21/2019 12:00:00 AM EDT drops 2 INSTILL 1 DROP IN EACH EYE AT BEDTIME DIRECTED INSTILL 1 DROP IN EACH EYE AT BEDTIME DIRECTED SOLD : 10/21/2019 [facility] 0.004 % 01/21/2019 12:00:00 AM EDT drops 2 INSTILL 1 DROP IN EACH EYE AT BEDTIME DIRECTED INSTILL 1 DROP IN EACH EYE AT BEDTIME DIRECTED SOLD : 06/28/2019 [facility] Insurance Providers Payer name Policy type / Coverage type Policy ID Covered libertarian ID Covered libertarian's relationship to salomon Policy Salomon Plan Information [facility] [id number] MEDICARE [id number] [facility] [id number] [facility] [id number] ANSI-Commercial [id number] ANSI-Medicare Part B [id number] MEDICARE [id number] SP [id number] [facility] [id number] 2 [id number] [facility] [id number] ANSI-Commercial [id number] ANSI-Medicare Part B [id number] MEDICARE [id number] SP [id number] A [facility] [id number] SP [id number] [facility] Part B [id number] Family Dep endent [id number] [place] Primary [id number] Self [id number] ANSI-Commercial [id number] ANSI-Medicare Part B [id number] ANSI-Medicare Part B [id number] ANSI-Commercial [id number] [place] [facility] Medigap Part B [id number] Family De pendent [id number] Medicare (Part B) Medicare Primary [id number] Self [id number] [place] [facility] Medigap Part B [id number] Family De pendent [id number] Medicare (Part B) Medicare Primary [id number] Self [id number] ANSI-Commercial [id number] ANSI-Medicare Part B [id number] ANSI-Medicare Part B [id number] ANSI-Commercial [id number] [place] [employer] Medigap Part B [id number] Family De pendent [id number] Medicare (Part B) Medicare Primary [id number] Self [id number] [place] [employer] Medigap Part B [id number] Family De pendent [id number] Medicare (Part B) Medicare Primary [id number] Self [id number] UNITED HEALTHCARE [id number] HU2 89 [id number] MEDICARE [id number] SP [id number] A UNITED HEALTHCARE [id number] HU2 89 [id number] BCBS E[place]IRE [place] DIV [id number] [id number] UNITED HEALTHCARE O [id number] S [id number] MEDICARE C [id number] S [id number] A [place] [employer] Medigap Part B [id number] Family De pendent [id number] Medicare (Part B) Medicare Primary [id number] Self [id number] EMPIRE PLAN [facility] U [id number] Spouse [id number] MEDICARE A [id number] Self [id number] A UNITED HEALTHCARE [id number] HU2 89 [id number] BCBS E[place]IRE [place] DIV [id number] [id number] [employer] [place] Medigap Part B Family Dep endent Medicare Natl Gov't Servi Medicare Primary Self UNITED HEALTHCARE P [id number] S [id number] Results ID Date Data Source [id number] 01/20/2020 11:10:00 AM EDT MEDENT ([facility]) Name Value Range Interpretation Code Description Data Abby rce(s) Supporting Document(s) Triglycerides 109 MEDENT ([facility]) HDL 87 MEDENT ([facility]) Cholesterol 278 MEDENT ([facility]) Cholesterol in LDL [Mass/volume] in Serum or Plasma by calculation 16 9 MEDENT ([facility]) Chol/HDL Ratio 3.195 MEDENT ([facility]) ID Date Data Source [id number] 01/20/2020 11:10:00 AM EDT MEDENT ([facility]) Name Value Range Interpretation Code Description Data Abby rce(s) Supporting Document(s) Albumin [Mass/volume] in Serum or Plasma 4.0 MEDENT ([facility]) Alanine aminotransferase [Enzymatic activity/volume] in Serum or Pl asma 17 MEDENT ([facility]) Calcium [Mass/volume] in Serum or Plasma 10.0 MEDENT ([facility]) Carbon dioxide, total [Moles/volume] in Serum or Plasma 28 MEDENT ([facility]) Chloride [Moles/volume] in Serum or Plasma 103 MEDENT ([facility]) Alkaline phosphatase [Enzymatic activity/volume] in Serum or Plasma 5 6 MEDENT ([facility]) Potassium [Moles/volume] in Serum or Plasma 4.7 MEDENT ([facility]) Protein [Mass/volume] in Serum or Plasma 7.4 MEDENT ([facility]) Sodium 138 MEDENT ([facility]) Aspartate aminotransferase [Enzymatic activity/volume] in Serum or Plasma 18 MEDENT ([facility]) Urea nitrogen [Mass/volume] in Serum or Plasma 14 MEDENT ([facility]) Glucose 99 70-100 MEDENT ([facility]) Creatinine For GFR Laboratory test result MEDENT ([facility]) Procedure Social History Code Duration Value Status Description Data Source(s ) Smoking 05/21/2020 12:00:00 AM EST Former Smoker completed Former Smoker eCW1 ([facility]) Smoking 11/06/2019 12:00:00 AM EDT Former Smoker completed Former Smoker eCW1 ([facility]) Smoking 11/06/2019 12:00:00 AM EDT Former Smoker completed Former Smoker eCW1 ([facility]) Smoking 11/06/2019 12:00:00 AM EDT Former Smoker completed Former Smoker eCW1 ([facility]) Vital Signs ID Date Data Source UNK Name Value Range Interpretation Code Description Data Source(s) Body mass index (BMI) [Ratio] 22.3 kg/m2 22.3 k g/m2 MEDENT ([facility]) Body height 64 [in_i] 64 [in_i] [facility] ([facility] 5'4" Body weight 130.00 [lb_av] 130.00 [lb_av] MEDEN T ([facility]) Body mass index (BMI) [Ratio] 22.7 kg/m2 22.7 k g/m2 MEDENT ([facility], [facility]) Body height 64 [in_i] 64 [in_i] MEDENT ([facility]) 5'4" Body weight 132.00 [lb_av] 132.00 [lb_av] MEDEN T ([facility], [facility]) Body temperature 96.9 [degF] 96.9 [degF] [facility] Oxygen saturation in Arterial blood by Pulse oximetry 99 % 99 % [facility]) Respiratory rate 12 /min 12 /min [facility] Heart rate 88 /min 88 /min MEDENT ([facility], [facility]) Diastolic blood pressure 84 mm[Hg] 84 mm[Hg] MEDENT ([facility], [facility]) Systolic blood pressure 145 mm[Hg] 145 mm[Hg] M EDENT ([facility], [facility]) Diastolic blood pressure 78 mm[Hg] 78 mm[Hg] eCW1 ([facility]) Systolic blood pressure 122 mm[Hg] 122 mm[Hg] e CW1 ([facility]) Body mass index (BMI) [Ratio] 22.49 kg/m2 22.49 kg/m2 eCW1 ([facility]) Body height 63.75 [in_i] 63.75 [in_i] eCW1 ([facility]) Body weight 58.97 kg 58.97 kg eCW1 ([facility]) Body weight 130 [lb_av] 130 [lb_av] eCW1 ([facility]) Patient Treatment Plan of Care Planned Activity Planned Date Details Description Data Source (s) olopatadine 1 MG/ML Ophthalmic Solution 05/21/2020 12:00:00 AM EST eCW1 ([facility]) Triamcinolone Acetonide 0.25 MG/ML Topical Lotion 05/21/2020 12: 00:00 AM EST eCW1 ([facility]) Simvastatin 10 MG Oral Tablet 02/10/2020 12:00:00 AM EDT eCW1 ([facility]) Simvastatin 10 MG Oral Tablet 02/10/2020 12:00:00 AM EDT eCW1 ([facility])
[2020-06-09] MEDS ORDERED: SIMV10TA21 PO (19:50)
--- OUTSIDE RECORDS SUMMARY | 2020-06-09 19:59 | CCD ---
Author Author [facility] Organization [facility] Address Unknown Phone Unavailable Care Team Providers Care Talent Manager Name Role Phone BRI, A EVARISTO PA [...] is protected by Article 27-F of the [facility] Public Health law. If you continue you may have access to information: Regarding HIV / AIDS; Provided by facilities licensed or operated by the [facility] Office of Mental Health; or Provided by the [facility] Office for People With Developmental Disabilities. If such information is present, then the following [facility] mandated warning applies: This information has been [...] law may result in a fine or [place] health care facility sentence or both. A general authorization for the release of medical or other information is NOT sufficient authorization for further disc losure. Family History Family Member Name Family Member Gender Family Member Status Date o f Status Description Data Source(s) Unknown Male Problem MEDENT ([facility]) Unknown Male Problem MEDENT ([facility]) at age 63 Unknown Female Problem MEDENT ([facility], [facility]) Encounters Encounter Providers Location Date Indications Data Source(s ) Unknown [address] [place] [address] 05/24/2020 12:00:00 AM EST eCW1 ([facility]) Unknown [address] [address] 02/09/2020 12:00:00 AM EDT eCW1 ([facility]) Unknown [address] [address] 02/02/2020 12:00:00 AM EDT eCW1 ([facility]) Outpatient Attender: EVARISTO grewal 11/19/2019 11:50:00 AM EDT MEDENT ([facility], [facility]) ( [place]) [facility] Yearly [facility]K[place]AN Exam [address] [place] [address] 11/06/2019 12:00:00 AM EDT eCW1 ([facility]) [facility] [place] [address] [facility] [place] [address] 07/14/2019 12:00:00 AM EDT eCW1 ([facility]) [facility] [address] [place] [address] 07/08/2019 12:00:00 AM EDT eCW1 ([facility]) Immunizations Vaccine Date Status Description Data Source(s) Tdap 11/19/2019 12:05:00 PM EDT completed M EDENT ([facility], [facility]) Medications Medication Brand Name Start Date [...] {drop_into_affected_eye} active Olopatadine HCl 0.1 % eCW1 ([facility]) Triamcinolone Acetonide 0.25 MG/ML Topic al Lotion Triamcinolone Acetonide 0.025 % Triamcinolone Acetonide 0.025 % 05/21/2020 12:00:00 AM EST 1.0 {application} active Triamcinolone Acetonide 0.025 % eCW1 ([facility]) 0.5 % 04/30/2020 12:00:00 AM EST drops 15 INSTILL ONE DROP INTO EACH EYE TWO TIMES A DAY DIRECTED INSTILL ONE DROP INTO EACH EYE TWO TIMES A DAY DIRECTED SOLD: 05/01/2020 [facility] 3.5-400-10,000 [id number] 04/13/2020 12:00:00 AM EST oin tment 3 APPLY A THIN LAYER INTO LEFT EYE TWO TIMES A DAY APPLY A THIN LAYER INTO LEFT EYE TWO TIMES A DAY SOLD: 04/13/2020 [facility] Diphenhydramine Hydrochloride 25 MG Oral Tablet [Benadryl] B enadryl Allergy 03/29/2020 12:00:00 AM EST ORAL active MEDENT ([facility]) Cholecalciferol 1000 UNT Oral Tablet Vitamin D 03/29/2020 12:00:00 A M EST ORAL active [facility] ([facility]) Simvastatin 10 MG Oral Tablet Simvastatin 03/29/2020 12:00:00 AM EST ORAL active MEDENT ([facility]) Ascorbic Acid 500 MG Oral Tablet Vitamin C 03/29/2020 12:00:00 AM EST ORAL active MEDENT ([facility]) 10 mg 03/19/2020 12:00:00 AM EST tablet [...] {tablet_in_the_evening} active Simvast atin 10 MG eCW1 ([facility]) Simvastatin 10 MG Oral Tablet Simvastatin 10 MG 02/10/2020 12:00:00 AM EDT 1.0 {tablet_in_the_evening} active Simvast atin 10 MG eCW1 ([facility]) 40 mg 02/10/2020 12:00:00 AM EDT capsule,delayed [...] {tablet_in_the_evening} active Simvast atin 10 MG eCW1 ([facility]) 0.2-0.5 % 12/12/2019 12:00:00 AM EDT drops [...] type / Coverage type Policy ID Covered constitution party ID Covered constitution party's relationship to salomon Policy Salomon Plan Information [facility] [id number] 2 [id number] MEDICARE [id number] [id number] [facility] [id number] [facility] [id number] ANSI-Commercial [id number] ANSI-Medicare Part B [id number] MEDICARE [id number] SP [id number] F80 [facility] [id number] 2 [id number] [facility] [id number] ANSI-Commercial [id number] ANSI-Medicare Part B [id number] MEDICARE [id number] SP [id number] A [facility] [id number] SP [id number] [facility] Part B [id number] Family Dep endent [id number] [place] Primary [id number] Self [id number] ANSI-Commercial [id number] ANSI-Medicare Part B [id number] ANSI-Medicare Part B [id number] ANSI-Commercial [id number] [employer] Medigap Part B [id number] Family De pendent [id number] Medicare (Part B) Medicare Primary [id number] Self [id number] [employer] Medigap Part B [id number] Family De pendent [id number] Medicare (Part B) Medicare Primary [id number] Self [id number] ANSI-Commercial [id number] ANSI-Medicare Part B [id number] ANSI-Medicare Part B [id number] ANSI-Commercial [id number] [employer] Medigap Part B [id number] Family De pendent [id number] Medicare (Part B) Medicare Primary [id number] Self [id number] [employer] Medigap Part B [id number] Family De pendent [id number] Medicare (Part B) Medicare Primary [id number] Self [id number] UNITED HEALTHCARE [id number] HU2 89 [id number] MEDICARE [id number] SP [id number] A UNITED HE[employer] [id number] HU2 89 [id number] BCBS EMPIRE MARIAM DIV [id number] HU2 [id number] UNITED HEALTHCARE O [id number] S [id number] MEDICARE C [id number] S [id number] A [employer] Medigap Part B [id number] Family De pendent [id number] Medicare (Part B) Medicare Primary [id number] Self [id number] EMPIRE PLAN [facility] U [id number] Spouse [id number] MEDICARE A [id number] Self [id number] A UNITED HEALTHCARE [id number] HU2 89 [id number] BCBS EMPIRE MARIAM DIV [id number] HU2 [id number] United Healthcare Gwinner Medigap Part B Family Dep endent Medicare Natl Gov't Servi Medicare Primary Self UNITED HEALTHCARE P [id number] S [id number] Results ID Date Data Source [id number] 01/20/2020 11:10:00 AM EDT MEDENT ([facility]) Name Value Range Interpretation Code Description Data Abby rce(s) Supporting Document(s) Triglycerides 109 [facility] ([facility]) HDL 87 [facility] ([facility] Cholesterol 278 MEDENT ([facility]) Cholesterol in LDL [Mass/volume] in Serum or Plasma by calculation 16 9 MEDENT ([facility]) Chol/HDL Ratio 3.195 MEDENT ([facility]) ID Date Data Source [id number] 01/20/2020 11:10:00 AM EDT MEDENT ([facility]) Name Value Range Interpretation Code Description Data Abby rce(s) Supporting Document(s) Albumin [Mass/volume] in Serum or Plasma 4.0 MEDENT ([facility]) Alanine aminotransferase [Enzymatic activity/volume] in Serum or Pl asma 17 MEDENT ([facility]) Calcium [Mass/volume] in Serum or Plasma 10.0 MEDENT ([facility]) Carbon dioxide, total [Moles/volume] in Serum or Plasma 28 MEDENT ([facility]) Chloride [Moles/volume] in Serum or Plasma 103 MEDENT ([facility]) Alkaline phosphatase [Enzymatic activity/volume] in Serum or Plasma 5 6 MEDENT ([facility]) Potassium [Moles/volume] in Serum or Plasma 4.7 MEDENT ([facility]) Protein [Mass/volume] in Serum or Plasma 7.4 MEDENT ([facility]) Sodium 138 [facility] ([facility]) Aspartate aminotransferase [Enzymatic activity/volume] in Serum or Plasma 18 MEDENT ([facility]) Urea nitrogen [Mass/volume] in Serum or Plasma 14 MEDENT ([facility]) Glucose 99 70-100 MEDENT ([facility]) Creatinine For GFR Laboratory test result MEDENT ([facility]) Procedure Social History Code Duration Value Status Description Data Source(s ) Smoking 05/21/2020 12:00:00 AM EST Former Smoker completed Former Smoker eCW1 ([facility]) Smoking 11/06/2019 12:00:00 AM EDT Former Smoker completed Former Smoker eCW1 ([facility]) Smoking 11/06/2019 12:00:00 AM EDT Former Smoker completed Former Smoker eCW1 ([facility]) Smoking 11/06/2019 12:00:00 AM EDT Former Smoker completed Former Smoker eCW1 ([facility]) Vital Signs ID Date Data Source UNK Name Value Range Interpretation Code Description Data Source(s) Body mass index (BMI) [Ratio] 22.3 kg/m2 22.3 k g/m2 MEDENT ([facility]) Body height 64 [in_i] 64 [in_i] MEDENT ([facility]) 5'4" Body weight 130.00 [lb_av] 130.00 [lb_av] MEDEN T ([facility]) Body mass index (BMI) [Ratio] 22.7 kg/m2 22.7 k g/m2 MEDENT ([facility], [facility]) Body height 64 [in_i] 64 [in_i] MEDENT ([facility]) 5'4" Body weight 132.00 [lb_av] 132.00 [lb_av] MEDEN T ([facility], [facility]) Body temperature 96.9 [degF] 96.9 [degF] [facility] Oxygen saturation in Arterial blood by Pulse oximetry 99 % 99 % [facility] Respiratory rate 12 /min 12 /min [facility] ( [facility] Heart rate 88 /min 88 /min MEDENT ([facility], [facility]) Diastolic blood pressure 84 mm[Hg] 84 mm[Hg] MEDENT ([facility], [facility]) Systolic blood pressure 145 mm[Hg] 145 mm[Hg] M EDENT ([facility], [facility]) Diastolic blood pressure 78 mm[Hg] 78 mm[Hg] eCW1 ([facility]) Systolic blood pressure 122 mm[Hg] 122 mm[Hg] e CW1 ([facility]) Body mass index (BMI) [Ratio] 22.49 kg/m2 22.49 kg/m2 eCW1 ([facility]) Body height 63.75 [in_i] 63.75 [in_i] eCW1 ([facility]) Body weight 58.97 kg 58.97 kg eCW1 ([facility]) Body weight 130 [lb_av] 130 [lb_av] eCW1 ([facility]) Patient Treatment Plan of Care Planned Activity Planned Date Details Description Data Source (s) olopatadine 1 MG/ML Ophthalmic Solution 05/21/2020 12:00:00 AM EST eCW1 ([facility]) Triamcinolone Acetonide 0.25 MG/ML Topical Lotion 05/21/2020 12: 00:00 AM EST eCW1 ([facility]) Simvastatin 10 MG Oral Tablet 02/10/2020 12:00:00 AM EDT eCW1 ([facility]) Simvastatin 10 MG Oral Tablet 02/10/2020 12:00:00 AM EDT eCW1 ([facility])
[2020-06-09 20:11] LABS: HEMATOCRIT 33.6 % (36.0-47.0); HEMOGLOBIN 10.9 g/dl (12.0-15.5); MEAN CORPUSCULAR HEMOGLOBIN 30.6 pg (27.0-33.0); MEAN CORPUSCULAR HGB CONC 32.4 g/dl (32.0-36.5); MEAN CORPUSCULAR VOLUME 94.4 fl (80.0-96.0); PLATELET COUNT, AUTOMATED 315 10^3/uL (150-450); RED BLOOD COUNT 3.56 10^6/uL (4.00-5.40); WHITE BLOOD COUNT 8.3 10^3/uL (4.0-10.0)
[2020-06-09 20:32] LABS: ALBUMIN 4.1 GM/DL (3.2-5.2); ALT/SGPT 24 U/L (12-78); BILIRUBIN,TOTAL 0.1 MG/DL (0.2-1.0); BLOOD UREA NITROGEN 20 MG/DL (7-18); CALCIUM LEVEL 9.3 MG/DL (8.8-10.2); CARBON DIOXIDE LEVEL 26 MEQ/L (21-32); CHLORIDE LEVEL 102 MEQ/L (98-107); ETHYL ALCOHOL (ETHANOL) 0.142 % (0.000-0.010); GLOMERULAR FILTRATION RATE > 60.0 (>45); GLUCOSE, FASTING 95 MG/DL (70-100); POTASSIUM SERUM 3.8 MEQ/L (3.5-5.1); SODIUM LEVEL 137 MEQ/L (136-145)
--- NOTE | 2020-06-09 20:52 | REPVR ---
PROCEDURE INFORMATION: Exam: XR Chest, 1 View Exam date and time: 06/09/2020 8:04 PM Age: 69 years old Clinical indication: Screening exam; Pre-operative exam; Other: Pre op; Additional info: Fall TECHNIQUE: Imaging protocol: XR of the chest Views: 1 view. COMPARISON: CR Chest, 2 view PA, Lat 03/02/2017 12:47 PM FINDINGS: Lungs: No consolidation. Pleural spaces: Unremarkable. No pleural effusion. No pneumothorax. Heart/Mediastinum: Stable cardiac silhouette. Bones/joints: Osteopenia. IMPRESSION: No acute cardiopulmonary process. Electronically signed by: Darnell Sanchez On 06/09/2020 20:52:53 PM
--- NOTE | 2020-06-09 20:53 | REPVR ---
PROCEDURE INFORMATION: Exam: XR Left Hip with Pelvis when Performed Exam date and time: 06/09/2020 8:04 PM Age: 69 years old Clinical indication: Hip pain; Left hip; Additional info: Fall TECHNIQUE: Imaging protocol: XR Left hip with pelvis when performed. Views: 2 or 3 views. COMPARISON: No relevant prior studies available. FINDINGS: Bones/joints: Displaced left femoral neck fracture. Osteopenia. There are degenerative changes involving the lumbar spine. Mild degenerative change involving the hip joints. Soft tissues: Unremarkable. IMPRESSION: Displaced left femoral neck fracture. Electronically signed by: Darnell Sanchez On 06/09/2020 20:54:01 PM
[2020-06-09] MEDS ORDERED: NS 1,000 ML IV SCH (21:15)
[2020-06-09] MEDS: MORPHINE 2 MG/ML 1ML VIAL (J2270) IV PRN ×2 (21:25→22:22)
[2020-06-09 22:17] LABS: RSV AMPLIFICATION NEGATIVE (NEGATIVE)
--- NOTE | 2020-06-09 22:32 | HPEPDOC ---
[facility] Medical History & Physical Date of Admission Jun 09, 2020 Date of Service: Jun 09, [address] [facility] Attending Physician: GENOVEVA VALLADARES MD History and Physical TIME OF SERVICE: 1040pm CHIEF COMPLAINT: fall HISTORY OF PRESENT ILLNESS: This 69 yr old F w a hx of osteoporosis tripped over her puppy and fell backwards this evening after having a glass of wine. Prior to the fall she denies feeling dizzy, having chest pain, vomiting, excessive diarrhea compared to her baseline, or dizziness. As a result of the fall she developed 10/10 in severity left hip pain which was found to be due to a displaced left femoral neck fracture on xray. The pain resolved after she received morphine. 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 FAMILY HISTORY: HTN, lung cancer, leukemia, osteoporosis, fibromyalgia ALLERGIES: Please see below. HOME MEDICATIONS: Please see below. PHYSICAL EXAMINATION: VITAL SIGNS: Please see below. GENERAL APPEARANCE: well nourished and developed / NAD CARDIOVASCULAR: RRR/NMRG/ no LE edema LUNGS: CTAB on RA ABDOMEN: flat MUSCULOSKELETAL: NCAT / KAPIL in arms and right leg NEUROLOGICAL: CN 2-12 grossly intact /speech not dysarthric PSYCHIATRIC: A&Ox 3 /able to understand and follow all commands LABORATORY DATA: 06/09/20 19:54 06/09/20 19:54: Nucleated Red Blood Cells % (auto) 0.0, Anion Gap 9, Glomerular Filtration Rate > 60.0, Calcium Level 9.3, Total Bilirubin 0.1L, Aspartate Amino Transf (AST/SGOT) 15, Alanine Aminotransferase (ALT/SGPT) 24, Alkaline Phosphatase 59, Total Protein 7.0, Albumin 4.1, Albumin/Globulin Ratio 1.4, Ethyl Alcohol Level 0.142H 06/09/20 21:17: Coronavirus (COVID-19)(PCR) NEGATIVE, Influenza Type A (RT-PCR) NEGATIVE, Influenza Type B (RT-PCR) NEGATIVE, Respiratory Syncytial Virus (PCR) NEGATIVE IMAGING: Xray left hip IMPRESSION: Displaced left femoral neck fracture. Chest xray IMPRESSION: No acute cardiopulmonary process. MICROBIOLOGY: Respiratory panel neg ASSESSMENT: is a 69 yr old w a hx of osteoporosis, CVA, HTN, glaucoma and depression who will be admitted for management a left hip fracture as a result of tripping over her puppy and falling. PLAN: 1 Mechanical fall resulting in displaced left hip fracture Plan: admit to [facility] / NPO after midnight w IVF for surgery possibly tomorrow / Ortho consult ()/ PT consult / pain control w Dilaudid 2 Osteoporosis Her risk factors include smoking, her age, ethnicity and chronic PPI use. Her serum Ca is 9.3 Plan: f/u serum Vitamin D 25-OH/ start calcium 667mg PO BID, increase vitamin D from 1000 to 2000 IU daily / f/u with PCP for DEXA Scan, to discuss non- pharmacological therapy for osteoporosis (ie resistance and core training, smoking cessation, alcohol moderation and fall prevention strategies) 3 Perioperative Evaluation She lives independently, doesnt use walking aides with her and is able to walk at least 1flight of stairs w/o stopping to rest. She denies ever having an UT Her RCRI Score is 1 (bc of her hx of CVA) which puts her in the class 2 risk category; her pro-BNP was 124 therefore she doesnt need additional testing prior to proceeding with surgery. Plan: hold Naproxen / hold Losartan to reduce her risk of developing hypotension (this medication can be resumed on day #2 after surgery) 4. NN Anemia She reports having chronic diarrhea off and had a c-scope in June of 2018 that identified internal hemorrhoids; she reports being told that her next c-scope should be done in 10 yrs Plan: f/u Iron panel, retic # & repeat stool occult 5 Hx of CVA Plan: simvastatin / resume ASA after surgery / monitor BP 6 Essential HTN Plan: amlodipine / resume losartan after surgery 7 Depression Plan: Paroxetine 8 OA Plan: hold naproxen DVT px w SCDs pending surgery Dispo: likely transfer to ARU after at least 2 midnights stay Home Medications Scheduled Acetaminophen (Acetaminophen) 500 Mg Tablet, 1,000 MG PO Q8H Amlodipine Besylate (Amlodipine Besylate) 10 Mg Tab, 10 MG PO DAILY Ascorbic Acid (Vitamin C) 500 Mg Tablet, 500 MG PO DAILY Aspirin (Aspirin EC) 81 Mg Tablet.dr, 81 MG PO DAILY Calcium Acetate (Calcium Acetate) 667 Mg Capsule, 667 MG PO BIDWM Cholecalciferol (Vitamin D3) (Vitamin D3) 1,000 Unit Tablet, 1,000 UNITS PO DAILY Docusate Sodium (Dok) 100 Mg Capsule, 100 MG PO BID Losartan Potassium (Losartan Potassium) 50 Mg Tab, 50 MG PO DAILY Omeprazole (Omeprazole) 40 Mg Cap, 40 MG PO DAILY Paroxetine HCl (Paroxetine) 10 Mg Tablet, 10 MG PO QHS Rivaroxaban (Xarelto) 10 Mg Tablet, 10 MG PO DAILY@18 Simvastatin (Simvastatin) 10 Mg Tablet, 10 MG PO QHS Scheduled PRN Diphenhydramine HCl (Benadryl) 25 Mg Capsule, 25 MG PO QHS PRN for INSOMNIA Naproxen Sodium (Aleve) 220 Mg Tablet, 440 MG PO BID PRN for PAIN Tramadol HCl (Tramadol HCl) 50 Mg Tablet, 50 MG PO Q8HP PRN for MODERATE PAIN (PS 5-7) Triamcinolone Acet (Triamcinolone Acetonide 0.025% Crm) 80 Gm Cream..g., 1 DOSE TOP DAILY PRN for RASH USES NEEDED ON HAIRLINE FOR RASH Allergies Coded Allergies: erythromycin base (Verified Allergy, Unknown, 06/09/20) A-FIB/CHADSVASC A-FIB History Current/History of A-Fib/PAF?: No Current PO Anticoag Therapy: No GENOVEVA VALLADARES MD Jun 09, 2020 22:32
[2020-06-09] MEDS ORDERED: MOM 30ML SUSPENSION UDC PO PRN (22:35)
[2020-06-09] MEDS ORDERED: HYDROMORPHONE HCL 0.5 MG/ 0.5 ML SYRINGE (J1170 PER 1) IV PRN (22:35)
[2020-06-09] MEDS ORDERED: MAALOX 30 ML SUSP *UDC PO PRN (22:35)
[2020-06-09] MEDS ORDERED: ACETAMINOPHEN TAB 650MG DOSE (2X325MG) PO PRN (22:35)
[2020-06-09] MEDS ORDERED: C 50TAB PO (22:36)
[2020-06-09] MEDS ORDERED: BENA25CA4 PO (22:36)
[2020-06-09] MEDS ORDERED: TRIA25CR TOP (22:36)
[2020-06-09] MEDS ORDERED: D31000TA2 PO (22:36)
[2020-06-09] MEDS ORDERED: PARO10TA3 PO (22:36)
[2020-06-09] MEDS ORDERED: ALEV220T22 PO (22:36)
[2020-06-09 23:14] LABS: NT-PRO BNP 124 PG/ML (<125)
--- OUTSIDE RECORDS SUMMARY | 2020-06-09 23:33 | CCD ---
Author Author [facility] Organization [facility] Address Unknown Phone Unavailable Care Team Providers Care Engineering Agent Name Role Phone BRI, A EVARISTO PA [...] is protected by Article 27-F of the [facility] Public Health law. If you continue you may have access to information: Regarding HIV / AIDS; Provided by facilities licensed or operated by the [facility] Office of Mental Health; or Provided by the [facility] Office for People With Developmental Disabilities. If such information is present, then the following [facility] mandated warning applies: This information has [...] law may result in a fine or custodial sentence or both. A general authorization for the release of medical or other information is NOT sufficient authorization for further disc losure. Family History Family Member Name Family Member Gender Family Member Status Date o f Status Description Data Source(s) Unknown Male Problem MEDENT ([facility]) Unknown Male Problem MEDENT ([facility]) at age 63 Unknown Female Problem MEDENT ([facility], [facility]) Encounters Encounter Providers Location Date Indications Data Source(s ) Unknown [address] [facility] [place] [address] 05/24/2020 12:00:00 AM EST eCW1 ([facility]) Unknown [address] [facility] [place] [address] 02/09/2020 12:00:00 AM EDT eCW1 ([facility]) Unknown [address] [facility] [place] [address] 02/02/2020 12:00:00 AM EDT eCW1 ([facility]) Outpatient Attender: EVARISTO grewal 11/19/2019 11:50:00 AM EDT MEDENT ([facility] 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) Medications Medication Brand Name Start Date Product [...] {application} active Triamcinolone Acetonide 0.025 % eCW1 ([facility]) 0.5 % 04/30/2020 12:00:00 AM EST drops 15 INSTILL ONE DROP INTO EACH EYE TWO TIMES A DAY DIRECTED INSTILL ONE DROP INTO EACH EYE TWO TIMES A DAY DIRECTED SOLD: 05/01/2020 [facility] 3.5-400-10,000 [id number]-kcqs/g 04/13/2020 12:00:00 AM EST oin tment 3 APPLY A THIN LAYER INTO LEFT EYE TWO TIMES A DAY APPLY A THIN LAYER INTO LEFT EYE TWO TIMES A DAY SOLD: 04/13/2020 [facility] Diphenhydramine Hydrochloride 25 MG Oral Tablet [Benadryl] B enadryl Allergy 03/29/2020 12:00:00 AM EST ORAL active MEDENT ([facility]) Cholecalciferol 1000 UNT Oral Tablet Vitamin D 03/29/2020 12:00:00 A M EST ORAL active [facility] ([facility]) Simvastatin 10 MG Oral Tablet Simvastatin 03/29/2020 12:00:00 AM EST ORAL active MEDENT ([facility]) Ascorbic Acid 500 MG Oral Tablet Vitamin C 03/29/2020 12:00:00 AM EST ORAL active MEDENT ([facility]) 10 mg 03/19/2020 12:00:00 AM EST tablet [...] {tablet_in_the_evening} active Simvast atin 10 MG eCW1 ([facility]) Simvastatin 10 MG Oral Tablet Simvastatin 10 MG 02/10/2020 12:00:00 AM EDT 1.0 {tablet_in_the_evening} active Simvast atin 10 MG eCW1 ([facility]) 40 mg 02/10/2020 12:00:00 AM EDT capsule,delayed [...] {tablet_in_the_evening} active Simvast atin 10 MG eCW1 ([facility]) 0.2-0.5 % 12/12/2019 12:00:00 AM EDT drops [...] TABLET BY MOUTH EVERY DAY SOLD: 12/27/2019 [facility] 10 mg 03/27/2019 12:00:00 AM EST [...] type / Coverage type Policy ID Covered alliance party ID Covered alliance party's relationship to salomon Policy Salomon Plan Information [facility] [id number] 2 [id number] MEDICARE [id number] SP [id number] [facility] [id number] 2 [id number] [facility] [id number] 2 [id number] ANSI-Commercial [id number] ANSI-Medicare Part B [id number] MEDICARE [id number] SP [id number] [facility] [id number] [facility] [id number] [facility] [id number] 2 [id number] ANSI-Commercial [id number] ANSI-Medicare Part B [id number] MEDICARE [id number] SP [id number] A [facility] MARIAM DIV [id number] SP [id number] [facility] B [id number] Family Dep endent [id number] [place] Primary [id number] Self [id number] ANSI-Commercial [id number] ANSI-Medicare Part B [id number] ANSI-Medicare Part B [id number] ANSI-Commercial [id number] [place] [facility] Medigap Part B [id number] Family De pendent [id number] Medicare (Part B) Medicare Primary [id number] Self [id number] [place] [facility] Medigap Part B [id number] Family De pendent [id number] Medicare (Part B) Medicare Primary [id number] Self [id number] ANSI-Commercial [id number] ANSI-Medicare Part B [id number] ANSI-Medicare Part B [id number] ANSI-Commercial [id number] [place] [facility] Medigap Part B [id number] Family De pendent [id number] Medicare (Part B) Medicare Primary [id number] Self [id number] [place] [facility] Medigap Part B [id number] Family De pendent [id number] Medicare (Part B) Medicare Primary [id number] Self [id number] UNITED HEALTHCARE [id number] HU2 [id number] MEDICARE [id number] SP [id number] A UNITED HEALTHCARE [id number] HU2 89 [id number] BCBS E[place]IRE [place] DIV [id number] HU2 [id number] UNITED HEALTHCARE O [id number] S [id number] MEDICARE C [id number] S [id number] A [place] Plan[facility] Medigap Part B [id number] Family De pendent [id number] Medicare (Part B) Medicare Primary [id number] Self [id number] EMPIRE PLAN [facility] U [id number] Spouse [id number] MEDICARE A [id number] Self [id number] A BCBS E[place]IRE [place] [id number] HU2 [id number] United Healthcare [place] Medigap Part B Family Dep endent Medicare Natl Gov't Servi Medicare Primary Self UNITED HEALTHCARE P [id number] S [id number] Results ID Date Data Source [id number] 01/20/2020 11:10:00 AM EDT MEDENT ([facility]) Name Value Range Interpretation Code Description Data Abby rce(s) Supporting Document(s) Triglycerides 109 [facility] ([facility]) HDL 87 [facility] ([facility] Cholesterol 278 MED[facility] ([facility]) Cholesterol in LDL [Mass/volume] in Serum or Plasma by calculation 16 9 MEDENT ([facility]) Chol/HDL Ratio 3.195 MED[facility] ([facility]) ID Date Data Source [id number] 01/20/2020 11:10:00 AM EDT MEDENT ([facility]) Name Value Range Interpretation Code Description Data Abby rce(s) Supporting Document(s) Albumin [Mass/volume] in Serum or Plasma 4.0 MEDENT ([facility]) Alanine aminotransferase [Enzymatic activity/volume] in Serum or Pl asma 17 MEDENT ([facility]) Calcium [Mass/volume] in Serum or Plasma 10.0 MEDENT ([facility]) Carbon dioxide, total [Moles/volume] in Serum or Plasma 28 MEDENT ([facility]) Chloride [Moles/volume] in Serum or Plasma 103 MEDENT ([facility]) Alkaline phosphatase [Enzymatic activity/volume] in Serum or Plasma 5 6 MEDENT ([facility]) Potassium [Moles/volume] in Serum or Plasma 4.7 MEDENT ([facility]) Protein [Mass/volume] in Serum or Plasma 7.4 MEDENT ([facility]) Sodium 138 [facility] ([facility]) Aspartate aminotransferase [Enzymatic activity/volume] in Serum or Plasma 18 MEDENT ([facility]) Urea nitrogen [Mass/volume] in Serum or Plasma 14 MEDENT ([facility]) Glucose 99 70-100 MED[facility] ([facility]) Creatinine For GFR Laboratory test result MEDENT ([facility]) Procedure Social History Code Duration Value Status Description Data Source(s ) Smoking 05/21/2020 12:00:00 AM EST Former Smoker completed Former Smoker eCW1 ([facility]) Smoking 11/06/2019 12:00:00 AM EDT Former Smoker completed Former Smoker eCW1 ([facility]) Smoking 11/06/2019 12:00:00 AM EDT Former Smoker completed Former Smoker eCW1 ([facility]) Smoking 11/06/2019 12:00:00 AM EDT Former Smoker completed Former Smoker eCW1 ([facility]) Vital Signs ID Date Data Source UNK Name Value Range Interpretation Code Description Data Source(s) Body mass index (BMI) [Ratio] 22.3 kg/m2 22.3 k g/m2 MEDENT ([facility]) Body height 64 [in_i] 64 [in_i] [facility] 5'4" Body weight 130.00 [lb_av] 130.00 [lb_av] MEDEN T ([facility]) Body mass index (BMI) [Ratio] 22.7 kg/m2 22.7 k g/m2 MEDENT ([facility]) Body height 64 [in_i] 64 [in_i] MEDENT ([facility]) 5'4" Body weight 132.00 [lb_av] 132.00 [lb_av] MEDEN T ([facility], [facility]) Body temperature 96.9 [degF] 96.9 [degF] [facility] Oxygen saturation in Arterial blood by Pulse oximetry 99 % 99 % [facility]) Respiratory rate 12 /min 12 /min [facility] ( [facility]) Heart rate 88 /min 88 /min MEDENT ([facility], [facility]) Diastolic blood pressure 84 mm[Hg] 84 mm[Hg] MEDENT ([facility], [facility]) Systolic blood pressure 145 mm[Hg] 145 mm[Hg] M EDENT ([facility], [facility]) Diastolic blood pressure 78 mm[Hg] 78 mm[Hg] eCW1 ([facility]) Systolic blood pressure 122 mm[Hg] 122 mm[Hg] e CW1 ([facility]) Body mass index (BMI) [Ratio] 22.49 kg/m2 22.49 kg/m2 eCW1 ([facility]) Body height 63.75 [in_i] 63.75 [in_i] eCW1 ([facility]) Body weight 58.97 kg 58.97 kg eCW1 ([facility]) Body weight 130 [lb_av] 130 [lb_av] eCW1 ([facility]) Patient Treatment Plan of Care Planned Activity Planned Date Details Description Data Source (s) olopatadine 1 MG/ML Ophthalmic Solution 05/21/2020 12:00:00 AM EST eCW1 ([facility]) Triamcinolone Acetonide 0.25 MG/ML Topical Lotion 05/21/2020 12: 00:00 AM EST eCW1 ([facility]) Simvastatin 10 MG Oral Tablet 02/10/2020 12:00:00 AM EDT eCW1 ([facility]) Simvastatin 10 MG Oral Tablet 02/10/2020 12:00:00 AM EDT eCW1 ([facility])
[2020-06-10] MEDS ORDERED: TRIAMCINOLONE ACETONIDE 0.025 % 80 GM CREAM TOP PRN (00:35)
[2020-06-10] MEDS: HYDROMORPHONE HCL 0.5 MG/ 0.5 ML SYRINGE (J1170 PER 1) IV PRN ×5 (00:55→14:17)
[2020-06-10] MEDS: LR 1,000 ML IV SCH ×2 (00:55→13:30)
[2020-06-10] MEDS: PARoxetine 10MG TABLET PO SCH ×2 (01:52→22:40)
[2020-06-10] MEDS: SIMVASTATIN 10 MG TAB PO SCH ×2 (01:52→22:40)
[2020-06-10] MEDS ORDERED: MORPHINE 2 MG/ML 1ML VIAL (J2270) IV ONE (03:50)
[2020-06-10 06:00] VITALS: BP 113/59
[2020-06-10] MEDS ORDERED: ceFAZolin SOD 2 GM in IV 1 EA IV SCH (06:00)
[2020-06-10 07:27] LABS: BLOOD UREA NITROGEN 15 MG/DL (7-18); CALCIUM LEVEL 9.1 MG/DL (8.8-10.2); CARBON DIOXIDE LEVEL 25 MEQ/L (21-32); CHLORIDE LEVEL 108 MEQ/L (98-107); FERRITIN 204 NG/ML (8-252); GLOMERULAR FILTRATION RATE > 60.0 (>45); GLUCOSE, FASTING 83 MG/DL (70-100); IRON (FE) 44 UG/DL (50-170); PERCENT SATURATION 17.7 % (13.2-45.0); SODIUM LEVEL 140 MEQ/L (136-145); TOTAL IRON BINDING CAPACITY 249 UG/DL (250-450)
[2020-06-10 08:13] LABS: HEMATOCRIT 31.6 % (36.0-47.0); HEMOGLOBIN 10.3 g/dl (12.0-15.5); MEAN CORPUSCULAR HEMOGLOBIN 31.1 pg (27.0-33.0); MEAN CORPUSCULAR HGB CONC 32.6 g/dl (32.0-36.5); MEAN CORPUSCULAR VOLUME 95.5 fl (80.0-96.0); PLATELET COUNT, AUTOMATED 305 10^3/uL (150-450); RED BLOOD COUNT 3.31 10^6/uL (4.00-5.40); WHITE BLOOD COUNT 8.8 10^3/uL (4.0-10.0)
[2020-06-10 09:00] VITALS: BP 120/60
[2020-06-10 09:02] LABS: TOTAL 25(OH) VITAMIN D 26.6 NG/ML (30.0-100.0)
[2020-06-10 09:03] LABS: FOLATE 12.6 NG/ML (>5.4)
--- NOTE | 2020-06-10 09:37 | ECGEPIP ---
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
[2020-06-10] MEDS: CALCIUM ACETATE 667MG GELCAP PO SCH ×2 (09:54→18:00)
[2020-06-10] MEDS: VITAMIN D 1,000 INTERNATIONAL UNITS TABLET PO SCH (09:59)
[2020-06-10 10:01] LABS: VITAMIN B12 LEVEL 225 PG/ML (247-911)
[2020-06-10] MEDS: OMEPRAZOLE 20 MG CAP PO SCH (10:01)
--- NOTE | 2020-06-10 12:51 | IPNPDOC ---
Subjective Date Seen The patient was seen on 06/10/20. Subjective Chief Complaint/HPI Mrs. Parra 69-year-old female with osteoporosis and history of CVA who had a mechanical fall with subsequent displaced left femoral neck fracture. This morning, she denies any chest pain, dyspnea, or abdominal pain. Still has left hip pain. Chest x-ray does not demonstrate any acute process. EKG demonstrates normal sinus rhythm. No further workup is needed at this time. Patient is medically cleared to proceed with surgery Objective Physical Examination General Exam: Positive: Alert, Cooperative Eye Exam: Positive: EOMI; Negative: Sclera icteric ENT Exam: Positive: Atraumatic Neck Exam: Positive: Supple Chest Exam: Positive: Clear to auscultation; Negative: Rales, Rhonchi, Wheezing Heart Exam: Positive: Rate Normal, Regular Rhythm Abdomen Exam: Positive: Normal bowel sounds, Soft; Negative: Tenderness Extremity Exam: Negative: Edema Neuro Exam: Positive: Cranial Nerves 3-12 NL Psych Exam: Positive: Mental status NL, Mood NL Assessment /Plan Assessment Mrs. Parra 69-year-old female with osteoporosis and history of CVA who had a mechanical fall with subsequent displaced left femoral neck fracture. Orthopedic surgery has been consulted. Recommendations appreciated. There is no contraindication to surgery at this time. No further workup is needed. Pending surgery. Plan/VTE VTE Prophylaxis Ordered?: Yes Plan 1. Mechanical fall resulting in displaced left femoral neck fracture Patient tripped over her puppy and fell backwards Orthopedic surgery consulted Pending surgery 2. Osteoporosis Vitamin D levels low at 26.6 Vitamin D supplementation increased from 1000 units to 2000 units Patient was started on calcium twice a day 3. Normocytic anemia Possible early iron deficiency anemia Reticulocyte index 0.5 indicating hyperproliferation Pending stool occult Last colonoscopy in June 2018 which demonstrated internal hemorrhoids 4. History of CVA Continue simvastatin Restart aspirin after surgery Monitor blood pressure 5. Hypertension Continue amlodipine Restart losartan after surgery 6. Depression Continue paroxetine 7. Osteoarthritis Hold naproxen 8. DVT prophylaxis SCDs VS, I&O, 24H, Fishbone Vital Signs/I&O Vital Signs Date Time Temp Pulse Resp B/P (MAP) Pulse Ox O2 Delivery O2 Flow Rate FiO2 06/10/20 11:15 18 Room Air 06/10/20 10:09 95 06/10/20 10:00 69 120/60 06/10/20 09:00 97.5 I&O- Last 24 Hours up to 6 AM 06/10/20 06:00 Intake Total 350 ml Output Total 1000 ml Balance -650 ml Laboratory Data 24H LABS Laboratory Tests 2 06/09/20 19:54: Nucleated Red Blood Cells % (auto) 0.0, Anion Gap 9, Glomerular Filtration Rate > 60.0, Calcium Level 9.3, Total Bilirubin 0.1L, Aspartate Amino Transf (AST/SGOT) 15, Alanine Aminotransferase (ALT/SGPT) 24, Alkaline Phosphatase 59, BE-Gza-C-Type Natriuretic Peptide 124, Total Protein 7.0, Albumin 4.1, Alb umin/Globulin Ratio 1.4, Ethyl Alcohol Level 0.142H 06/09/20 21:17: Coronavirus (COVID-19)(PCR) NEGATIVE, Influenza Type A (RT-PCR) NEGATIVE, Influenza Type B (RT-PCR) NEGATIVE, Respiratory Syncytial Virus (PCR) NEGATIVE 06/10/20 06:03: Nucleated Red Blood Cells % (auto) 0.0, Anion Gap 7L, Glomerular Filtration Rate > 60.0, Calcium Level 9.1, Reticulocyte # (auto) 31.8, Percent Reticulocyte Count 1.0, Reticulocyte Hemoglobin Equivalent 35.8, Iron Level 44L, Total Iron Binding Capacity 249L, Transferrin % Saturation 17.7, Ferritin 204, Vitamin B12 Level 225L, 25-Hydroxy Vitamin D Total 26.6L, Folate 12.6 CBC/BMP Laboratory Tests 06/09/20 19:54 06/10/20 06:03 LESLEE FLORES DO Jun 10, 2020 12:51
[2020-06-10] MEDS ORDERED: KETOROLAC 30 MG/ML 1ML VIAL IV ONE (13:10)
[2020-06-10 14:00] VITALS: BP 110/60
[2020-06-10] MEDS ORDERED: LIDOCAINE 2% 100MG/5ML SDV (FOR ANES.) As Ordered ONE (16:54)
[2020-06-10] MEDS ORDERED: MIDAZOLAM INJ 2MG/2ML VIAL (J2250 PER 1MG) As Ordered ONE (16:54)
[2020-06-10] MEDS ORDERED: propofoL 500 MG/50 ML VIAL As Ordered ONE (16:54)
[2020-06-10] MEDS ORDERED: fentaNYL 100 MCG/2 ML INJECTION (J3010) As Ordered ONE (16:54)
[2020-06-10] MEDS ORDERED: ONDANSETRON 4MG/2ML VIAL As Ordered ONE (16:55)
[2020-06-10] MEDS ORDERED: BUPIVACAINE/EPIN 0.25% 30 ML VIAL As Ordered ONE (17:23)
[2020-06-10] MEDS ORDERED: TRANEXAMIC ACID 100 MG/ML 10ML VIAL As Ordered ONE (17:24)
[2020-06-10] MEDS ORDERED: EPINEPHrine INJ 1 MG/ML 1ML AMP As Ordered ONE ×2 (17:24→17:59)
[2020-06-10] MEDS ORDERED: CLINDAMYCIN INJ 900MG/6ML VIAL As Ordered ONE (17:26)
[2020-06-10] MEDS ORDERED: ceFAZolin 2 GM/D5W 50 ML IV BAG (J0690 PER 500MG) As Ordered ONE (17:39)
--- NOTE | 2020-06-10 18:05 | CR ---
CONSULTATION DATE: 06/10/2020 REASON FOR CONSULTATION: The patient was seen on 06/10 after admission overnight for left hip pain. HISTORY OF PRESENT ILLNESS: This 69-year-old woman got a new puppy, she tripped over the puppy falling backwards, and was not able to walk afterwards. She was brought into the emergency room complaining of 10/10 left hip pain. Imaging studies done there reflected a femoral neck fracture displaced [place] 4. Orthopedics was consulted. She had not been having any hip problems prior. REVIEW OF SYSTEMS: A 12-point review of systems is negative except for musculoskeletal. PAST MEDICAL HISTORY: 1. Osteoporosis. 2. Cerebrovascular accident due to hypertension. 3. Reflux disease. 4. Depression. 5. Glaucoma. 6. Arthritis. 7. Previous eye surgery. 8. She does have residual balance issues secondary to the cerebrovascular incident. SOCIAL HISTORY: She continues to smoke and she also drinks one or two glasses of wine daily. Living with her independently. FAMILY HISTORY: Non-contributory. MEDICATIONS: Hospital medication sheet reviewed. ALLERGIES: Hospital allergy sheet reviewed. CLINICAL EXAMINATION: She is alert, oriented, and cooperative. Normocephalic, atraumatic. Face symmetric. She is pleasant. Appeared to be comfortable when I saw her in the morning. The left lower extremity slightly shortened. She has a palpable dorsalis pedis pulse. Any motion of the left lower extremity produces pain. Calves are soft bilaterally and nontender. No ankle edema. Extremities are warm and well-perfused and sensate. She is not short of breath. There is no abdominal distention. She has healthy skin appearance of her lower extremities. LABORATORY DATA: Hematocrit was 33. Blood sugar was 95. IMAGING STUDIES: Reviewed. IMPRESSION: Displaced femoral neck fracture, left hip. RECOMMENDATIONS: I spoke with the patient about operative intervention. I have suggested a hemiarthroplasty of the left hip. We completed a preoperative packet including a short form H&P and consent document, which involved a elaina discussion of the pathology involved, the procedure proposed, alternatives including doing nothing and the risks including, but not limited to pain, failure, limping, incomplete relief of symptoms, bleeding, blood clots, and other issues. The patient agreed to proceed.
[2020-06-10] MEDS ORDERED: BUPIVACAINE HCL 0.5% 30 ML VIAL As Ordered ONE (18:21)
[2020-06-10] MEDS ORDERED: ACETAMINOPHEN 1000MG 100ML IV BTL (OFIRMEV) (J0131 PER 10MG) As Ordered ONE (18:21)
[2020-06-10] MEDS ORDERED: KETAMINE HCL 200 MG/20 ML VIAL As Ordered ONE (18:21)
[2020-06-10] MEDS ORDERED: BUPIVACAINE LIPOSOME/PF 1.3% 20ML VIAL (13.3MG/ML)(EXPAREL)(C9290 PER1MG) As Ordered ONE (18:43)
[2020-06-10] MEDS ORDERED: BUPIVACAINE HCL 0.25% 10ML VIAL As Ordered ONE (18:43)
[2020-06-10] MEDS ORDERED: fentaNYL 100 MCG/2 ML INJECTION (J3010) IV PRN (20:25)
[2020-06-10] MEDS ORDERED: ONDANSETRON 4MG/2ML VIAL IV PRN ×2 (20:25→20:45)
[2020-06-10] MEDS ORDERED: oxyCODONE 5MG TAB PO PRN (20:25)
[2020-06-10] MEDS ORDERED: LR 1,000 ML IV SCH (20:25)
[2020-06-10] MEDS ORDERED: PERCOCET 5MG/325MG TAB PO PRN (20:45)
[2020-06-10 21:23] VITALS: BP 117/59
[2020-06-10 22:00] VITALS: BP 119/65
[2020-06-10] MEDS: PERCOCET 5MG/325MG TAB PO PRN (22:40)
[2020-06-10 23:10] VITALS: BP 142/93
[2020-06-11] MEDS: HYDROMORPHONE HCL 0.5 MG/ 0.5 ML SYRINGE (J1170 PER 1) IV PRN (00:01)
[2020-06-11 00:26] VITALS: BP 131/58
[2020-06-11 01:52] VITALS: BP 108/55
[2020-06-11] MEDS: LR 1,000 ML IV SCH (03:32)
[2020-06-11] MEDS: ceFAZolin SOD 2 GM in IV 1 EA IV SCH ×2 (05:03→12:24)
[2020-06-11] MEDS: PERCOCET 5MG/325MG TAB PO PRN ×2 (05:08→12:24)
[2020-06-11 07:03] VITALS: BP 141/76
[2020-06-11 07:47] LABS: HEMOGLOBIN 9.9 g/dl (12.0-15.5); RED BLOOD COUNT 3.13 10^6/uL (4.00-5.40)
[2020-06-11] MEDS: CALCIUM ACETATE 667MG GELCAP PO SCH ×2 (08:00→18:15)
[2020-06-11 08:11] LABS: BLOOD UREA NITROGEN 8 MG/DL (7-18); CALCIUM LEVEL 8.5 MG/DL (8.8-10.2); CARBON DIOXIDE LEVEL 25 MEQ/L (21-32); CHLORIDE LEVEL 102 MEQ/L (98-107); CREATININE FOR GFR 0.58 MG/DL (0.55-1.30); GLOMERULAR FILTRATION RATE > 60.0 (>45); GLUCOSE, FASTING 114 MG/DL (70-100); POTASSIUM SERUM 3.7 MEQ/L (3.5-5.1); SODIUM LEVEL 136 MEQ/L (136-145)
--- NOTE | 2020-06-11 08:16 | REP ---
INDICATION: POST OP. COMPARISON: Comparison radiographs June 09, 2020.. TECHNIQUE: AP and cross-table lateral views. Three views provided. FINDINGS: AP and cross-table lateral views of the left hip demonstrate left hip hemiarthroplasty in good position. IMPRESSION: Postop left hip hemiarthroplasty. <Electronically signed by Talon Tucker > 06/11/20 [id number]
[2020-06-11] MEDS ORDERED: METAMUCIL (PSYLLIUM) PACKET PO SCH (09:00)
[2020-06-11 09:41] LABS: HEMATOCRIT 29.9 % (36.0-47.0); MEAN CORPUSCULAR HEMOGLOBIN 31.6 pg (27.0-33.0); MEAN CORPUSCULAR HGB CONC 33.1 g/dl (32.0-36.5); MEAN CORPUSCULAR VOLUME 95.5 fl (80.0-96.0); PLATELET COUNT, AUTOMATED 276 10^3/uL (150-450)
[2020-06-11] MEDS: VITAMIN D 1,000 INTERNATIONAL UNITS TABLET PO SCH (10:07)
[2020-06-11] MEDS: OMEPRAZOLE 20 MG CAP PO SCH (10:07)
--- NOTE | 2020-06-11 11:54 | IPNPDOC ---
Subjective Date Seen The patient was seen on 06/11/20. Subjective Chief Complaint/HPI Mrs. Parra 69-year-old female with osteoporosis and history of CVA who had a mechanical fall with subsequent displaced left femoral neck fracture. Last night she went to the OR for repair. This morning, denies any chest pain, dyspnea, or abdominal pain. Left hip pain has improved, but still painful. Objective Physical Examination General Exam: Positive: Alert, Cooperative Eye Exam: Positive: EOMI; Negative: Sclera icteric ENT Exam: Positive: Atraumatic Neck Exam: Positive: Supple Chest Exam: Positive: Clear to auscultation; Negative: Rales, Rhonchi, Wheezing Heart Exam: Positive: Rate Normal, Regular Rhythm Abdomen Exam: Positive: Normal bowel sounds, Soft; Negative: Tenderness Extremity Exam: Negative: Edema Neuro Exam: Positive: Cranial Nerves 3-12 NL Psych Exam: Positive: Mental status NL, Mood NL Assessment /Plan Assessment Mrs. Parra 69-year-old female with osteoporosis and history of CVA who had a mechanical fall with subsequent displaced left femoral neck fracture. Orthopedic surgery has been consulted. Recommendations appreciated. Patient went to the OR on 06/10/2020. Pending PT, OT, and ARU screening Plan/VTE VTE Prophylaxis Ordered?: Yes Plan 1. Mechanical fall resulting in displaced left femoral neck fracture Patient tripped over her puppy and fell backwards Orthopedic surgery consulted, recommendations appreciated Went to the OR on 06/10/2020 Pending PT, OT, and ARU screening 2. Osteoporosis Vitamin D levels low at 26.6 Vitamin D supplementation increased from 1000 units to 2000 units Patient was started on calcium twice a day 3. Normocytic anemia Possible early iron deficiency anemia Reticulocyte index 0.5 indicating hyperproliferation Pending stool occult Last colonoscopy in June 2018 which demonstrated internal hemorrhoids 4. History of CVA Continue simvastatin and aspirin Monitor blood pressure 5. Hypertension Continue amlodipine Restart losartan tomorrow 6. Depression Continue paroxetine 7. Osteoarthritis Hold naproxen 8. DVT prophylaxis Per ortho, on rivaroxaban Disposition: Pending PT, OT, and ARU screening VS, I&O, 24H, Fishbone Vital Signs/I&O Vital Signs Date Time Temp Pulse Resp B/P (MAP) Pulse Ox O2 Delivery O2 Flow Rate FiO2 06/11/20 09:00 88 141/76 06/11/20 07:03 98.8 20 93 Nasal Cannula 1.0 I&O- Last 24 Hours up to 6 AM 06/11/20 06:00 Intake Total 1750 ml Output Total 1960 ml Balance -210 ml Laboratory Data 24H LABS Laboratory Tests 2 06/11/20 07:06: Anion Gap 9, Glomerular Filtration Rate > 60.0, Calcium Level 8.5L CBC/BMP Laboratory Tests 06/11/20 07:06 LESLEE FLORES DO Jun 11, 2020 11:54
[2020-06-11 14:00] VITALS: BP 141/75
[2020-06-11] MEDS: MORPHINE 2 MG/ML 1ML VIAL (J2270) IV PRN ×2 (15:32→20:21)
[2020-06-11] MEDS: RIVAROXABAN 10 MG TAB (XARELTO) PO SCH (18:15)
[2020-06-11] MEDS: SIMVASTATIN 10 MG TAB PO SCH (20:04)
[2020-06-11] MEDS: DOCUSATE SODIUM 100MG CAPSULE PO SCH (20:04)
[2020-06-11] MEDS: PARoxetine 10MG TABLET PO SCH (20:04)
[2020-06-11 22:00] VITALS: BP 120/82
[2020-06-12] MEDS: MORPHINE 2 MG/ML 1ML VIAL (J2270) IV PRN ×2 (00:17→04:32)
[2020-06-12 06:00] VITALS: BP 161/83
[2020-06-12] MEDS ORDERED: ACETAMINOPHEN TAB 650MG DOSE (2X325MG) PO SCH (06:00)
[2020-06-12] MEDS ORDERED: traMADol 50 MG TAB PO PRN (06:05)
[2020-06-12] MEDS ORDERED: ACETAMINOPHEN 500 MG TAB PO SCH (06:10)
[2020-06-12] MEDS: ACETAMINOPHEN 500 MG TAB PO SCH ×3 (06:20→20:56)
[2020-06-12] MEDS: traMADol 50 MG TAB PO PRN ×3 (06:21→20:56)
[2020-06-12 06:23] LABS: HEMATOCRIT 30.2 % (36.0-47.0); HEMOGLOBIN 9.9 g/dl (12.0-15.5); MEAN CORPUSCULAR HEMOGLOBIN 31.2 pg (27.0-33.0); MEAN CORPUSCULAR HGB CONC 32.8 g/dl (32.0-36.5); MEAN CORPUSCULAR VOLUME 95.3 fl (80.0-96.0); PLATELET COUNT, AUTOMATED 259 10^3/uL (150-450); RED BLOOD COUNT 3.17 10^6/uL (4.00-5.40); WHITE BLOOD COUNT 11.7 10^3/uL (4.0-10.0)
[2020-06-12 06:38] LABS: BLOOD UREA NITROGEN 6 MG/DL (7-18); CALCIUM LEVEL 8.3 MG/DL (8.8-10.2); CARBON DIOXIDE LEVEL 26 MEQ/L (21-32); CHLORIDE LEVEL 106 MEQ/L (98-107); CREATININE FOR GFR 0.53 MG/DL (0.55-1.30); GLOMERULAR FILTRATION RATE > 60.0 (>45); GLUCOSE, FASTING 120 MG/DL (70-100); POTASSIUM SERUM 3.5 MEQ/L (3.5-5.1); SODIUM LEVEL 140 MEQ/L (136-145)
[2020-06-12] MEDS: MOM 30ML SUSPENSION UDC PO SCH (09:00)
[2020-06-12] MEDS: DOCUSATE SODIUM 100MG CAPSULE PO SCH ×2 (09:08→20:54)
[2020-06-12] MEDS: CALCIUM ACETATE 667MG GELCAP PO SCH ×2 (09:09→17:30)
[2020-06-12] MEDS: ASPIRIN 81 MG ENTERIC TAB PO SCH (09:10)
[2020-06-12] MEDS: OMEPRAZOLE 20 MG CAP PO SCH (09:10)
[2020-06-12] MEDS: VITAMIN D 1,000 INTERNATIONAL UNITS TABLET PO SCH (09:10)
[2020-06-12] MEDS: LOSARTAN 50MG TABLET PO SCH (09:33)
[2020-06-12 14:00] VITALS: BP 148/82
--- NOTE | 2020-06-12 17:12 | IPNPDOC ---
Subjective Date Seen The patient was seen on 06/12/20. Subjective Chief Complaint/HPI Mrs. Parra 69-year-old female with osteoporosis and history of CVA who had a mechanical fall with subsequent displaced left femoral neck fracture. She had a left hip repaired on 06/10/2020. Yesterday she tried to work with physical therapy but had too much pain. This morning, denies any chest pain or dyspnea. Still has left hip pain. Objective Physical Examination General Exam: Positive: Alert, Cooperative Eye Exam: Positive: EOMI; Negative: Sclera icteric ENT Exam: Positive: Atraumatic Neck Exam: Positive: Supple Chest Exam: Positive: Clear to auscultation; Negative: Rales, Rhonchi, Wheezing Heart Exam: Positive: Rate Normal, Regular Rhythm Abdomen Exam: Positive: Normal bowel sounds, Soft; Negative: Tenderness Extremity Exam: Negative: Edema Neuro Exam: Positive: Cranial Nerves 3-12 NL Psych Exam: Positive: Mental status NL, Mood NL Assessment /Plan Assessment Mrs. Parra 69-year-old female with osteoporosis and history of CVA who had a mechanical fall with subsequent displaced left femoral neck fracture. Orthopedic surgery has been consulted. Recommendations appreciated. Patient went to the OR on 06/10/2020. Pending PT, OT, and ARU screening. Physical therapy to eval on June 14. Plan/VTE VTE Prophylaxis Ordered?: Yes Plan 1. Mechanical fall resulting in displaced left femoral neck fracture Patient tripped over her puppy and fell backwards Orthopedic surgery consulted, recommendations appreciated Went to the OR on 06/10/2020 Pending PT, OT, and ARU screening 2. Osteoporosis Vitamin D levels low at 26.6 Vitamin D supplementation increased from 1000 units to 2000 units Patient was started on calcium twice a day 3. Normocytic anemia Possible early iron deficiency anemia Reticulocyte index 0.5 indicating hyperproliferation Pending stool occult Last colonoscopy in June 2018 which demonstrated internal hemorrhoids 4. History of CVA Continue simvastatin and aspirin Monitor blood pressure 5. Hypertension Continue amlodipine Restart losartan tomorrow 6. Depression Continue paroxetine 7. Osteoarthritis Hold naproxen 8. DVT prophylaxis Per ortho, on rivaroxaban Disposition: Pending PT, OT, and ARU screening. Physical therapy to reevaluate on June 14. VS, I&O, 24H, Fishbone Vital Signs/I&O Vital Signs Date Time Temp Pulse Resp B/P (MAP) Pulse Ox O2 Delivery O2 Flow Rate FiO2 06/12/20 15:00 16 06/12/20 14:00 97.9 85 148/82 (104) 95 Room Air 06/12/20 00:17 2.0 I&O- Last 24 Hours up to 6 AM 06/12/20 06:00 Intake Total 1200 ml Output Total 0 ml Balance 1200 ml Laboratory Data 24H LABS Laboratory Tests 2 06/12/20 06:02: Nucleated Red Blood Cells % (auto) 0.0, Anion Gap 8, Glomerular Filtration Rate > 60.0, Calcium Level 8.3L CBC/BMP Laboratory Tests 06/12/20 06:02 LESLEE FLORES DO Jun 12, 2020 17:12
[2020-06-12] MEDS: RIVAROXABAN 10 MG TAB (XARELTO) PO SCH (17:30)
[2020-06-12] MEDS: SIMVASTATIN 10 MG TAB PO SCH (20:54)
[2020-06-12] MEDS: PARoxetine 10MG TABLET PO SCH (20:55)
[2020-06-12 22:00] VITALS: BP 123/72
[2020-06-13] MEDS: traMADol 50 MG TAB PO PRN ×3 (05:50→20:54)
[2020-06-13] MEDS: ACETAMINOPHEN 500 MG TAB PO SCH ×3 (05:50→20:55)
[2020-06-13 06:00] VITALS: BP 142/77
[2020-06-13 06:30] LABS: HEMATOCRIT 27.7 % (36.0-47.0); HEMOGLOBIN 9.2 g/dl (12.0-15.5); MEAN CORPUSCULAR HEMOGLOBIN 31.3 pg (27.0-33.0); MEAN CORPUSCULAR HGB CONC 33.2 g/dl (32.0-36.5); MEAN CORPUSCULAR VOLUME 94.2 fl (80.0-96.0); PLATELET COUNT, AUTOMATED 272 10^3/uL (150-450); RED BLOOD COUNT 2.94 10^6/uL (4.00-5.40)
[2020-06-13 06:45] LABS: BLOOD UREA NITROGEN 7 MG/DL (7-18); CALCIUM LEVEL 9.4 MG/DL (8.8-10.2); CARBON DIOXIDE LEVEL 27 MEQ/L (21-32); CHLORIDE LEVEL 105 MEQ/L (98-107); CREATININE FOR GFR 0.64 MG/DL (0.55-1.30); GLOMERULAR FILTRATION RATE > 60.0 (>45); GLUCOSE, FASTING 98 MG/DL (70-100); SODIUM LEVEL 138 MEQ/L (136-145)
[2020-06-13 07:31] LABS: MAGNESIUM LEVEL 1.3 MG/DL (1.8-2.4)
[2020-06-13] MEDS: OMEPRAZOLE 20 MG CAP PO SCH (08:38)
[2020-06-13] MEDS: ASPIRIN 81 MG ENTERIC TAB PO SCH (08:38)
[2020-06-13] MEDS: LOSARTAN 50MG TABLET PO SCH (08:39)
[2020-06-13] MEDS: VITAMIN D 1,000 INTERNATIONAL UNITS TABLET PO SCH (08:40)
[2020-06-13] MEDS: DOCUSATE SODIUM 100MG CAPSULE PO SCH ×2 (08:40→20:52)
[2020-06-13] MEDS: CALCIUM ACETATE 667MG GELCAP PO SCH ×2 (08:40→17:06)
[2020-06-13] MEDS: MOM 30ML SUSPENSION UDC PO SCH (08:41)
[2020-06-13] MEDS ORDERED: POTASSIUM CHLORIDE 10 MEQ SR TABLET PO ONE ×2 (09:00→18:00)
--- NOTE | 2020-06-13 12:49 | IPNPDOC ---
Subjective Date Seen The patient was seen on 06/13/20. Subjective Chief Complaint/HPI Mrs. Parra 69-year-old female with osteoporosis and history of CVA who had a mechanical fall with subsequent displaced left femoral neck fracture. She had a left hip repaired on 06/10/2020. This morning she were to physical therapy. She did much better this time. Otherwise this morning, denies any chest pain or dyspnea. Still has left hip pain but improved Objective Physical Examination General Exam: Positive: Alert, Cooperative Eye Exam: Positive: EOMI; Negative: Sclera icteric ENT Exam: Positive: Atraumatic Neck Exam: Positive: Supple Chest Exam: Positive: Clear to auscultation; Negative: Rales, Rhonchi, Wheezing Heart Exam: Positive: Rate Normal, Regular Rhythm Abdomen Exam: Positive: Normal bowel sounds, Soft; Negative: Tenderness Extremity Exam: Negative: Edema Neuro Exam: Positive: Cranial Nerves 3-12 NL Psych Exam: Positive: Mental status NL, Mood NL Assessment /Plan Assessment Mrs. Parra 69-year-old female with osteoporosis and history of CVA who had a mechanical fall with subsequent displaced left femoral neck fracture. Orth opedic surgery has been consulted. Recommendations appreciated. Patient went to the OR on 06/10/2020. Pending recommendations from physical therapy Plan/VTE VTE Prophylaxis Ordered?: Yes Plan 1. Mechanical fall resulting in displaced left femoral neck fracture Patient tripped over her puppy and fell backwards Orthopedic surgery consulted, recommendations appreciated Went to the OR on 06/10/2020 Pending PT recommendations 2. Osteoporosis Vitamin D levels low at 26.6 Vitamin D supplementation increased from 1000 units to 2000 units Patient was started on calcium twice a day 3. Normocytic anemia Possible early iron deficiency anemia Reticulocyte index 0.5 indicating hyperproliferation Pending stool occult Last colonoscopy in June 2018 which demonstrated internal hemorrhoids 4. History of CVA Continue simvastatin and aspirin Monitor blood pressure 5. Hypertension Continue amlodipine Restart losartan tomorrow 6. Depression Continue paroxetine 7. Osteoarthritis Hold naproxen 8. DVT prophylaxis Per ortho, on rivaroxaban Disposition: Pending clinical improvement VS, I&O, 24H, Fishbone Vital Signs/I&O Vital Signs Date Time Temp Pulse Resp B/P (MAP) Pulse Ox O2 Delivery O2 Flow Rate FiO2 06/13/20 08:39 87 142/77 06/13/20 06:20 18 06/13/20 06:00 99.7 97 Room Air 06/12/20 00:17 2.0 I&O- Last 24 Hours up to 6 AM 06/13/20 05:59 Intake Total 1740 ml Output Total 0 ml Balance 1740 ml Laboratory Data 24H LABS Laboratory Tests 2 06/13/20 06:04: Nucleated Red Blood Cells % (auto) 0.0, Anion Gap 6L, Glomerular Filtration Rate > 60.0, Calcium Level 9.4, Magnesium Level 1.3L CBC/BMP Laboratory Tests 06/13/20 06:04 LESLEE FLORES DO Jun 13, 2020 12:49
[2020-06-13 13:29] LABS: HEMATOCRIT 27.9 % (36.0-47.0); HEMOGLOBIN 9.1 g/dl (12.0-15.5); MEAN CORPUSCULAR HEMOGLOBIN 31.3 pg (27.0-33.0); MEAN CORPUSCULAR HGB CONC 32.6 g/dl (32.0-36.5); MEAN CORPUSCULAR VOLUME 95.9 fl (80.0-96.0); PLATELET COUNT, AUTOMATED 269 10^3/uL (150-450); RED BLOOD COUNT 2.91 10^6/uL (4.00-5.40); WHITE BLOOD COUNT 11.1 10^3/uL (4.0-10.0)
[2020-06-13 13:58] LABS: BLOOD UREA NITROGEN 9 MG/DL (7-18); CALCIUM LEVEL 8.5 MG/DL (8.8-10.2); CARBON DIOXIDE LEVEL 25 MEQ/L (21-32); CHLORIDE LEVEL 103 MEQ/L (98-107); CREATININE FOR GFR 0.67 MG/DL (0.55-1.30); GLOMERULAR FILTRATION RATE > 60.0 (>45); GLUCOSE, FASTING 134 MG/DL (70-100); POTASSIUM SERUM 3.2 MEQ/L (3.5-5.1); SODIUM LEVEL 136 MEQ/L (136-145)
[2020-06-13 14:00] VITALS: BP 126/73
[2020-06-13] MEDS: MAG SULF 1GM/100ML (MAG RUN) 1 GM in IV 1 EA IV SCH ×4 (14:12→17:06)
[2020-06-13] MEDS: RIVAROXABAN 10 MG TAB (XARELTO) PO SCH (17:06)
[2020-06-13] MEDS ORDERED: MAGNESIUM OXIDE 400MG TAB (MAG-OX) PO ONE (19:00)
[2020-06-13] MEDS: PARoxetine 10MG TABLET PO SCH (20:52)
[2020-06-13] MEDS: SIMVASTATIN 10 MG TAB PO SCH (20:52)
[2020-06-13 22:00] VITALS: BP 127/64
[2020-06-14 05:22] LABS: HEMOGLOBIN 8.5 g/dl (12.0-15.5); MEAN CORPUSCULAR HGB CONC 32.7 g/dl (32.0-36.5); MEAN CORPUSCULAR VOLUME 94.9 fl (80.0-96.0); PLATELET COUNT, AUTOMATED 308 10^3/uL (150-450); RED BLOOD COUNT 2.74 10^6/uL (4.00-5.40); WHITE BLOOD COUNT 8.7 10^3/uL (4.0-10.0)
[2020-06-14] MEDS: ACETAMINOPHEN 500 MG TAB PO SCH ×2 (05:32→14:15)
[2020-06-14 05:49] LABS: BLOOD UREA NITROGEN 9 MG/DL (7-18); CALCIUM LEVEL 8.1 MG/DL (8.8-10.2); CARBON DIOXIDE LEVEL 22 MEQ/L (21-32); CHLORIDE LEVEL 109 MEQ/L (98-107); CREATININE FOR GFR 0.53 MG/DL (0.55-1.30); GLOMERULAR FILTRATION RATE > 60.0 (>45); GLUCOSE, FASTING 95 MG/DL (70-100); MAGNESIUM LEVEL 2.2 MG/DL (1.8-2.4); POTASSIUM SERUM 4.2 MEQ/L (3.5-5.1); SODIUM LEVEL 140 MEQ/L (136-145)
[2020-06-14 06:00] VITALS: BP 127/71
[2020-06-14] MEDS: MOM 30ML SUSPENSION UDC PO SCH (09:00)
[2020-06-14] MEDS: VITAMIN D 1,000 INTERNATIONAL UNITS TABLET PO SCH (09:11)
[2020-06-14] MEDS: CALCIUM ACETATE 667MG GELCAP PO SCH (09:11)
[2020-06-14] MEDS: ASPIRIN 81 MG ENTERIC TAB PO SCH (09:11)
[2020-06-14] MEDS: OMEPRAZOLE 20 MG CAP PO SCH (09:11)
[2020-06-14] MEDS: LOSARTAN 50MG TABLET PO SCH (09:11)
[2020-06-14] MEDS: DOCUSATE SODIUM 100MG CAPSULE PO SCH (09:11)
[2020-06-14 09:12] VITALS: BP 130/74
--- NOTE | 2020-06-14 09:57 | RO ---
OPERATIVE NOTE DATE OF OPERATION: 06/10/2020 PREOPERATIVE DIAGNOSIS: Left hip femoral neck fracture. POSTOPERATIVE DIAGNOSIS: Left hip femoral neck fracture. PROCEDURE: Hemiarthroplasty, cemented, left hip. SURGEON: Mark Jaramillo MD MECHANICAL DESIGN ENGINEER: ANESTHESIOLOGIST: Dr. Mendoza. ANESTHESIA: Spinal ESTIMATED BLOOD LOSS: Less than 60 mL REPLACEMENT: Crystalloid. COMPLICATIONS: None. INDICATIONS: A 69-year-old female tripped over a puppy, fractured the left hip, displaced femoral neck fracture. Medical history includes cerebrovascular accident. Consent reviewed in detail with patient who voiced an understanding of the pathology I talked about and the procedure proposed which would be a cemented hemiarthroplasty of the left hip. COMPONENTS USED: Included ApexPeakit hemiarthroplasty system, 46 mm femoral head, size 3 femoral stem and the appropriate cement restrictor, centralizer and cement dosage, minus 3 neck length. DESCRIPTION OF PROCEDURE: Identified in the holding area, site and side verified, brought to the operating room, positioned on the Madhav table for exposure of the left hip in the lateral decubitus approach/Perea's approach. Once she was thoroughly prepped and draped in the usual fashion, we began the surgical procedure. I outlined an incision with a marking pen, infiltrated with 1/4% Marcaine with epinephrine for perioperative pain control. I made the incision with a 10 blade, developed down through skin, subcuticular tissues to the lateral fascia. The lateral fascia was divided, exposing the abductor mechanism. The patient was seen to have quite significant peritrochanteric bursitic changes. The abductor mechanism was reflected off the greater trochanter at the anterior at the anterior 1/3 position, leaving a cuff of tissue for later repair and I also placed a tag stitch here. Next, the capsule and minimus were split. The vastus lateralis was split. The hip was easily able to be rotated out of the way. The femoral head was removed using corkscrew type device. With the leg positioned in the sterile bag, I opened the canal with the canal opening reamer. I found the canal with the canal finding reamer and then used the lateralizing reamer. I used the template to template the femoral neck cut and made the cut using the oscillating saw about 3/4 fingerbreadth from the lesser trochanter. Next, once this was accomplished, I utilized rasps through a size 3, size 3 fit appropriately. Next, once this was accomplished, I placed a size 3 cement restrictor, utilized pulse lavage to scrub the femoral canal and prepare it for bone cement packed the femoral canal using epi-soaked vag pack. Bone cement was prepared. Once the bone cement was the appropriate consistency, it was injected under pressurized technique. When it was the appropriate consistency, I cemented the nontrial hemiarthroplasty stem. Next, once the cement had hardened and all excess was cleared, I trialed off of the nontrial stem for a size minus 3. That head was reduced, fit appropriately. The hip was stable with internal rotation and flexion as well as external rotation. Next, once this was accomplished, trial head was removed. Trunion was cleared. Nontrial minus 3 components were installed, tamped into place. The hip was reduced, again was placed through a range of motion, found to be stable. Pulse lavage irrigation was accomplished. Exparel local anesthetic was instilled in the soft tissues for perioperative pain control. Capsule tissues were reapproximated with interrupted stitch. Abductor mechanism was reapproximated with interrupted stitch and also reapproximated to the greater trochanter through bony tunnels. The vastus lateralis reapproximated, lateral fascia reapproximated with interrupted running Stratafix stitch, interrupted stitch utilizing deep dermis Prineo dressing applied. Next, the Madhav table was disassembled. The patient was moved back to the hospital bed, moved to the recovery room in good condition, leg lengths appreciated to be about equal in the recovery room. Postoperative imaging reflected cemented hemiarthroplasty, left in good alignment.
[2020-06-14 11:24] LABS: HEMATOCRIT 26.7 % (36.0-47.0); HEMOGLOBIN 8.7 g/dl (12.0-15.5); MEAN CORPUSCULAR HEMOGLOBIN 31.6 pg (27.0-33.0); MEAN CORPUSCULAR HGB CONC 32.6 g/dl (32.0-36.5); MEAN CORPUSCULAR VOLUME 97.1 fl (80.0-96.0); PLATELET COUNT, AUTOMATED 335 10^3/uL (150-450); RED BLOOD COUNT 2.75 10^6/uL (4.00-5.40); WHITE BLOOD COUNT 9.3 10^3/uL (4.0-10.0)
[2020-06-14] MEDS: traMADol 50 MG TAB PO PRN (14:18)
[2020-06-14] MEDS ORDERED: TRAM50TA2 PO (15:08)
[2020-06-14] MEDS ORDERED: CALC1CAP PO (15:08)
[2020-06-14] MEDS ORDERED: ASPI-569 PO (15:08)
[2020-06-14] MEDS ORDERED: ACET-683 PO (15:08)
[2020-06-14] MEDS ORDERED: XARE10TA PO (15:08)
[2020-06-14] MEDS ORDERED: DOK1CAP7 PO (15:08)
--- NOTE | 2020-06-14 23:49 | DS.PDOC ---
Discharge Summary General Date of Admission Jun 09, 2020 at 22:32 Date of Discharge Jun 14, 2020 Specialist/Consultants Involve Orthopedic surgery, Dr. Jaramillo Discharge Summary PROCEDURES PERFORMED DURING STAY: Left hip hemiarthroplasty, cemented. By Dr. Jaramillo on 06/10/2020 ADMITTING DIAGNOSES: 1. Left hip femoral neck fracture 2/2 mechanical fall 2. Osteoporosis 3. Normocytic anemia 4. History of CVA 5. Hypertension 6. Depression 7. Osteoarthritis DISCHARGE DIAGNOSES: 1. Left hip femoral neck fracture 2/2 mechanical fall 2. Osteoporosis 3. Normocytic anemia 4. History of CVA 5. Hypertension 6. Depression 7. Osteoarthritis COMPLICATIONS/CHIEF COMPLAINT: Hip Fracture. HISTORY OF PRESENT ILLNESS: Mrs. Parra is a 69 year old female with osteoarthritis who presents after a mechanical fall with left hip pain. She had a glass of wine, and then she tripped over her puppy. She denies any dizziness, chest pain, vomiting, or excessive diarrhea. She had 10/10 left hip pain which was found to be secondary to a displaced left femoral neck fracture. Pain improved with morphine. Patient will be admitted for left femoral neck fracture. HOSPITAL COURSE: Patient went to the OR on 06/10/[address] Jaramillo for left hip arthroplasty and cement. The following day, she did not do well due to the pain in the hip. She stayed the weekend. On Sunday, she was doing much better. Her left hip pain improved. She did well with physical therapy and she was cleared for home. She denied any chest pain, dyspnea, or abdominal pain. Hip pain present, but better. She was subsequently discharged home. DISCHARGE MEDICATIONS: Please see below. ALLERGIES: Please see below. PHYSICAL EXAMINATION ON DISCHARGE: VITAL SIGNS: Please see below. GENERAL: Comfortable, in no apparent distress HEENT: Head normocephalic, atraumatic NECK: Supple CARDIOVASCULAR EXAMINATION: Regular rate and rhythm RESPIRATORY EXAMINATION: Lungs clear to auscultation bilaterally ABDOMINAL EXAMINATION: Soft, non-tender, normal bowel sounds EXTREMITIES: No pitting edema bilaterally SKIN: Warm and dry NEUROLOGICAL EXAMINATION: CN 3-12 grossly intact PSYCHIATRIC EXAMINATION: Normal mood and affect LABORATORY DATA: Please see below. IMAGING: XR hip Displaced left femoral neck fracture. PROGNOSIS: Good ACTIVITY: As tolerated. DIET: As tolerated. DISCHARGE PLAN: Home with home services DISPOSITION: Home Health Service. DISCHARGE INSTRUCTIONS: 1. Follow up with PCP within 1 week 2. Follow up with orthopedic surgery in 1 to 2 weeks DISCHARGE CONDITION: Stable. Total time spent on discharge planning, discharge summary, and medication reconciliation: 40 minutes Vital Signs/I&Os Vital Signs Date Time Temp Pulse Resp B/P (MAP) Pulse Ox O2 Delivery O2 Flow Rate FiO2 06/14/20 14:48 18 06/14/20 09:12 86 130/74 06/14/20 06:00 98.5 96 Room Air 06/12/20 00:17 2.0 I&O- Last 24 Hours up to 6 AM 06/14/20 06:00 Intake Total 2405 ml Balance 2405 ml Laboratory Data Labs 24H Laboratory Tests 2 06/14/20 05:12: Nucleated Red Blood Cells % (auto) 0.3H, Anion Gap 9, Glomerular Filtration Rate > 60.0, Calcium Level 8.1L, Magnesium Level 2.2 06/14/20 11:08: Nucleated Red Blood Cells % (auto) 0.0, Reticulocyte # (auto) 29.4, Percent Reticulocyte Count 1.1, Reticulocyte Hemoglobin Equivalent 26.3, Iron Level 15L, Total Iron Binding Capacity 188L, Transferrin % Saturation 8.0L, Ferritin 333H, Lactate Dehydrogenase 213 CBC/BMP Laboratory Tests 06/14/20 05:12 06/14/20 11:08 Discharge Medications Scheduled Acetaminophen (Acetaminophen) 500 Mg Tablet, 1,000 MG PO Q8H Amlodipine Besylate (Amlodipine Besylate) 10 Mg Tab, 10 MG PO DAILY, (Reported) Ascorbic Acid (Vitamin C) 500 Mg Tablet, 500 MG PO DAILY, (Reported) Aspirin (Aspirin EC) 81 Mg Tablet.dr, 81 MG PO DAILY Calcium Acetate (Calcium Acetate) 667 Mg Capsule, 667 MG PO BIDWM Cholecalciferol (Vitamin D3) (Vitamin D3) 1,000 Unit Tablet, 1,000 UNITS PO DAILY, (Reported) Docusate Sodium (Dok) 100 Mg Capsule, 100 MG PO BID Losartan Potassium (Losartan Potassium) 50 Mg Tab, 50 MG PO DAILY, (Reported) Omeprazole (Omeprazole) 40 Mg Cap, 40 MG PO DAILY, (Reported) Paroxetine HCl (Paroxetine) 10 Mg Tablet, 10 MG PO QHS, (Reported) Rivaroxaban (Xarelto) 10 Mg Tablet, 10 MG PO DAILY@18 Simvastatin (Simvastatin) 10 Mg Tablet, 10 MG PO QHS, (Reported) Scheduled PRN Diphenhydramine HCl (Benadryl) 25 Mg Capsule, 25 MG PO QHS PRN for INSOMNIA, (Reported) Naproxen Sodium (Aleve) 220 Mg Tablet, 440 MG PO BID PRN for PAIN, (Reported) Tramadol HCl (Tramadol HCl) 50 Mg Tablet, 50 MG PO Q8HP PRN for MODERATE PAIN (PS 5-7) Triamcinolone Acet (Triamcinolone Acetonide 0.025% Crm) 80 Gm Cream..g., 1 DOSE TOP DAILY PRN for RASH, (Reported) USES NEEDED ON HAIRLINE FOR RASH Allergies Coded Allergies: erythromycin base (Verified Allergy, Unknown, 06/09/20) LESLEE FLORES 1, 2021 23:49
== END 2020-06-14 15:45 | disposition home health service (06) | DRG 522 ==
LOC: M ED 19:24 → M ED INP 22:32 → M MS5PR 06-10 01:25
PROVIDERS: ADMIT Internal Medicine; ATTEND Internal Medicine
PROC: 0SRS0J9 Replacement of Left Hip Joint, Femoral Surface with Synthetic Substitute, Cemented, Open Approach (ICD-10-PCS; principal; 2020-06-10 13:00)
DX: S72.002A Fracture of unspecified part of neck of left femur, initial encounter for closed fracture (principal); M81.0 Age-related osteoporosis without current pathological fracture; W01.0XXA Fall on same level from slipping, tripping and stumbling without subsequent striking against object, initial encounter; Y92.008 Other place in unspecified non-institutional (private) residence as the place of occurrence of the external cause; D64.9 Anemia, unspecified; Y99.8 Other external cause status; I10 Essential (primary) hypertension; F32.9 Major depressive disorder, single episode, unspecified; M19.90 Unspecified osteoarthritis, unspecified site; I69.398 Other sequelae of cerebral infarction; R26.89 Other abnormalities of gait and mobility; F17.200 Nicotine dependence, unspecified, uncomplicated; Z20.822 Contact with and (suspected) exposure to COVID-19; Z79.82 Long term (current) use of aspirin; Z79.01 Long term (current) use of anticoagulants; Z79.899 Other long term (current) drug therapy; Z88.1 Allergy status to other antibiotic agents

== ENCOUNTER → 2020-11-11 | Outpatient (CLI) | payer MEDICARE, BC ==
[~2020-11-11] MED LIST changes: +ACET-683 PO; +ALEV220T22 PO; +ASPI-569 PO; +BENA25CA4 PO; +C 50TAB PO; +CALC1CAP PO; +D31000TA2 PO; +DOK1CAP7 PO; +OMEP40CA4 PO; -OMEP40CA97 PO; +PARO10TA3 PO; +SIMV10TA21 PO; +TRAM50TA2 PO; +TRIA25CR TOP; +XARE10TA PO
--- NOTE | 2020-11-11 11:58 | REPMRS ---
Patient History The patient states she has not had a clinical breast exam in over a year. No known family history of cancer. No breast complaints today Patient signed the MRS sheet 1st covid vaccine 05/05/20-right arm-Pfizer 2nd covid vaccine 05/26/20-left arm Priors on PACS Patient Identification Verified Digital Woman Screen Mammo: November 11, 2020 - Exam #: [id number] Bilateral CC and MLO view(s) were taken. Technologist: Sharona Nash, Technologist Prior study comparison: November 06, 2019, bilateral digital woman screen mammo performed at [facility]. July 05, 2018, bilateral digital woman screen mammo performed at [facility]. FINDINGS: There are scattered fibroglandular densities. Screening. Digital screening (2D) mammography was performed bilaterally in the CC and MLO projections. Additionally, breast tomosynthesis (3D mammography) was performed bilaterally in the CC and MLO projections. Todays exam was compared to the prior exam/exams. By history, the patient has no complaints of a palpable breast abnormality or other significant breast complaints. The breasts are unchanged in size and shape. There are no anai-soft tissue densities or spiculated masses. There is no internal architectural distortion. Once again, stable benign appearing calcifications are seen.There are no suspicious anai-calcific clusters. Skin thickening or nipple retraction is not present. IMPRESSION: BI-RADS Category 2- Benign Findings. There is no evidence of malignant alteration of the breasts. Followup examination recommended in one year. The Volpara volumetric breast density category is B, there are scattered areas of fibroglandular densities. This mammogram was read with the assistance of Liana In[employer],an FDA approved computer aided detection system for mammography. The lifetime Tyrer-Cuzick score is 6.3 % Negative x-ray reports should not delay surgical consultation if a dominant or clinically suspicious mass is present. Not all breast cancers can be identified by mammography. Therefore, we recommend that you continue to perform regular breast self-examination and physical examination and then promptly contact your physician of any concerns or changes. Adenosis and dense breasts may obscure an underlying neoplasm. Assessment: BI-RADS/ACR category 2 mammogram. Benign Findings. Recommendation Routine screening mammogram of both breasts in 1 year. Electronically Signed By: Noah Hess DO 11/11/20 [id number]
== END ==
LOC: M WHC 10:55
PROVIDERS: ATTEND Nurse Practitioner Women's Health
DX: Z12.31 Encounter for screening mammogram for malignant neoplasm of breast (principal)

== ENCOUNTER → 2021-03-07 | Outpatient (CLI) | payer MEDICARE, BC, OTHER ==
[~2021-03-07] MED LIST changes: +DOK1CAP4 PO; -DOK1CAP7 PO
[2021-03-07 15:49] LABS: BASO # 0.1 10^3/uL (0.0-0.2); BASO % 0.7 % (0.0-1.0); EOS # 0.1 10^3/uL (0.0-0.5); EOS % 1.7 % (0.0-3.0); HEMATOCRIT 32.9 % (36.0-47.0); HEMOGLOBIN 11.2 g/dl (12.0-15.5); LYMPH # 2.1 10^3/uL (1.5-5.0); LYMPH % 29.9 % (24.0-44.0); MEAN CORPUSCULAR HEMOGLOBIN 30.5 pg (27.0-33.0); MEAN CORPUSCULAR VOLUME 89.6 fl (80.0-96.0); MONO # 0.8 10^3/uL (0.0-0.8); MONO % 11.9 % (2.0-8.0); NEUTROPHILS # 3.9 10^3/uL (1.5-8.5); NEUTROPHILS % 55.5 % (36.0-66.0); PLATELET COUNT, AUTOMATED 374 10^3/uL (150-450); RED BLOOD COUNT 3.67 10^6/uL (4.00-5.40)
[2021-03-07 16:23] LABS: ALBUMIN 3.7 GM/DL (3.2-5.2); ALT/SGPT 21 U/L (12-78); BILIRUBIN,TOTAL 0.2 MG/DL (0.2-1.0); BLOOD UREA NITROGEN 10 MG/DL (7-18); CALCIUM LEVEL 8.6 MG/DL (8.8-10.2); CARBON DIOXIDE LEVEL 30 MEQ/L (21-32); CHLORIDE LEVEL 102 MEQ/L (98-107); CHOLESTEROL LEVEL 174 MG/DL (<200); CHOLESTEROL RISK RATIO 2.949 (<5); CREATININE FOR GFR 0.76 MG/DL (0.55-1.30); GLOMERULAR FILTRATION RATE > 60.0 (>39); GLUCOSE, FASTING 100 MG/DL (70-100); HDL CHOLESTEROL 59 MG/DL (>40); LDL CHOLESTEROL 94 MG/DL (<100); LIPASE 229 U/L (73-393); NON-HDL-C 115 MG/DL; POTASSIUM SERUM 4.2 MEQ/L (3.5-5.1); SODIUM LEVEL 138 MEQ/L (136-145); TOTAL PROTEIN 6.7 GM/DL (6.4-8.2); TRIGLYCERIDES LEVEL 106 MG/DL (<150)
[2021-03-07 16:41] LABS: ERYTHROCYTE SEDIMENTATION RATE 18 mm/hr (0-30)
== END ==
LOC: M PLALAB 11:56
PROVIDERS: ATTEND Physician Assistant
DX: R19.7 Diarrhea, unspecified (principal)

== ENCOUNTER → 2021-05-23 | Outpatient (CLI) | payer MEDICARE, BC, OTHER ==
[~2021-05-23] MED LIST changes: +LOSA50TA28 PO; -LOSA50TA88 PO; +VITMTA PO
== END ==
LOC: M LABSMTC 13:44
PROVIDERS: ATTEND Anesthesiology
DX: Z01.818 Encounter for other preprocedural examination (principal); Z11.52 Encounter for screening for COVID-19

== ENCOUNTER 2021-05-26 06:59 | Day surgery (SDC) | payer MEDICARE, BC, OTHER ==
[~2021-05-26] VITALS: Ht 162.6 cm; Wt 58.5 kg
[~2021-05-26 06:59] MED LIST changes: +CYCLOPENTOLATE 1% OPHTH SOLN 2 ML BTL OD SCH; +FLURBIPROFEN 0.03% OPHTH SOLN 2.5 ML OD SCH; +LIDOCAINE 1% SDV 5ML VIAL As Ordered ONE; +MAXITROL OPHTH SUSP 5 ML As Ordered ONE
[2021-05-26] MEDS ORDERED: LR 1,000 ML IV SCH (07:00)
[2021-05-26] MEDS ORDERED: fentaNYL 100 MCG/2 ML INJECTION As Ordered ONE (07:20)
[2021-05-26] MEDS ORDERED: MIDAZOLAM INJ 2MG/2ML VIAL (J2250 PER 1MG) As Ordered ONE (07:20)
[2021-05-26] MEDS: TETRACAINE 0.5% OPHTH SOLN 4ML OD SCH ×2 (07:46→09:27)
[2021-05-26] MEDS: PHENYLEPHRINE 2.5% OPHTH SOL 2ML OD SCH ×2 (07:47→09:28)
[2021-05-26] MEDS ORDERED: OFLOXACIN 0.3 % (OCUFLOX) OPTH SOL 5ML As Ordered ONE (09:22)
[2021-05-26] MEDS ORDERED: MAXITROL OPHTH SUSP 5 ML As Ordered ONE (09:39)
[2021-05-26] MEDS ORDERED: ACETYLCHOLINE OPHTH SOLN 1% 2ML (MIOCHOL-E) As Ordered ONE (09:39)
[2021-05-26 10:16] VITALS: BP 149/71
== END 2021-05-26 10:20 | disposition home or self-care (01) ==
LOC: M SDC 06:59
PROVIDERS: ATTEND Ophthalmology
DX: H25.11 Age-related nuclear cataract, right eye (principal); I10 Essential (primary) hypertension; K21.9 Gastro-esophageal reflux disease without esophagitis; M19.90 Unspecified osteoarthritis, unspecified site; M48.00 Spinal stenosis, site unspecified; F41.9 Anxiety disorder, unspecified; I63.9 Cerebral infarction, unspecified; F17.290 Nicotine dependence, other tobacco product, uncomplicated; Z88.1 Allergy status to other antibiotic agents; Z79.899 Other long term (current) drug therapy
CPT/HCPCS: 66983; J2250; J3010; V2632

== ENCOUNTER → 2021-08-05 | Outpatient (CLI) | payer MEDICARE, OTHER, BC ==
[~2021-08-05] MED LIST changes: -CYCLOPENTOLATE 1% OPHTH SOLN 2 ML BTL OD SCH; -D31000TA2 PO; -FLURBIPROFEN 0.03% OPHTH SOLN 2.5 ML OD SCH; -LIDOCAINE 1% SDV 5ML VIAL As Ordered ONE; -MAXITROL OPHTH SUSP 5 ML As Ordered ONE; +VITA100093 PO
[2021-08-05 17:10] LABS: ALBUMIN 4.1 GM/DL (3.2-5.2); ALT/SGPT 24 U/L (12-78); BILIRUBIN,TOTAL 0.4 MG/DL (0.2-1.0); BLOOD UREA NITROGEN 16 MG/DL (7-18); CALCIUM LEVEL 9.1 MG/DL (8.8-10.2); CARBON DIOXIDE LEVEL 27 MEQ/L (21-32); CHLORIDE LEVEL 100 MEQ/L (98-107); CREATININE FOR GFR 0.83 MG/DL (0.55-1.30); FERRITIN 177 NG/ML (8-252); FREE T4 0.83 NG/DL (0.76-1.46); GLOMERULAR FILTRATION RATE > 60.0 (>39); GLUCOSE, FASTING 89 MG/DL (70-100); IRON (FE) 103 UG/DL (50-170); PERCENT SATURATION 33.4 % (13.2-45.0); POTASSIUM SERUM 4.3 MEQ/L (3.5-5.1); SODIUM LEVEL 133 MEQ/L (136-145); TOTAL IRON BINDING CAPACITY 308 UG/DL (250-450); TOTAL PROTEIN 7.3 GM/DL (6.4-8.2)
[2021-08-05 17:12] LABS: FOLATE > 24.0 NG/ML; TOTAL 25(OH) VITAMIN D 22.8 NG/ML (30.0-100.0)
== END ==
LOC: M WUC 11:47
PROVIDERS: ATTEND Physician Assistant
DX: I11.9 Hypertensive heart disease without heart failure (principal); F32.9 Major depressive disorder, single episode, unspecified; E04.1 Nontoxic single thyroid nodule; D64.9 Anemia, unspecified; Z79.899 Other long term (current) drug therapy

== ENCOUNTER → 2021-08-10 | Outpatient (CLI) | payer MEDICARE, OTHER, BC ==
[2021-08-10 13:41] LABS: BASO % 0.6 % (0.0-1.0); EOS # 0.1 10^3/uL (0.0-0.5); HEMATOCRIT 33.4 % (36.0-47.0); HEMOGLOBIN 11.3 g/dl (12.0-15.5); LYMPH % 28.9 % (24.0-44.0); MEAN CORPUSCULAR HEMOGLOBIN 32.1 pg (27.0-33.0); MEAN CORPUSCULAR HGB CONC 33.8 g/dl (32.0-36.5); MEAN CORPUSCULAR VOLUME 94.9 fl (80.0-96.0); MONO % 14.6 % (2.0-8.0); NEUTROPHILS # 3.9 10^3/uL (1.5-8.5); NEUTROPHILS % 54.6 % (36.0-66.0); PLATELET COUNT, AUTOMATED 359 10^3/uL (150-450); RED BLOOD COUNT 3.52 10^6/uL (4.00-5.40); WHITE BLOOD COUNT 7.1 10^3/uL (4.0-10.0)
== END ==
LOC: M WUC 10:52
PROVIDERS: ATTEND Physician Assistant
DX: E64.9 Sequelae of unspecified nutritional deficiency (principal)

== ENCOUNTER → 2021-11-14 | Outpatient (CLI) | payer MEDICARE, BC, OTHER | LOC: M WHC 10:49 | PROVIDERS: ATTEND Physician Assistant | DX: Z12.31 Encounter for screening mammogram for malignant neoplasm of breast (principal) ==

== ENCOUNTER 2021-11-22 12:09 | Emergency (ER) | payer MEDICARE, BC, OTHER ==
[~2021-11-22] VITALS: Ht 162.6 cm; Wt 56.8 kg
[2021-11-22 12:11] VITALS: BP 166/75
[2021-11-22] MEDS ORDERED: traMADol 50 MG TAB PO ONE (16:40)
[2021-11-22] MEDS ORDERED: TRAM50TA2 PO (18:13)
== END 2021-11-22 18:23 | disposition home or self-care (01) ==
LOC: M ED 12:09
DX: S82.034A Nondisplaced transverse fracture of right patella, initial encounter for closed fracture (principal); S20.219A Contusion of unspecified front wall of thorax, initial encounter; M71.21 Synovial cyst of popliteal space [Baker], right knee; W01.198A Fall on same level from slipping, tripping and stumbling with subsequent striking against other object, initial encounter; Y92.410 Unspecified street and highway as the place of occurrence of the external cause; I10 Essential (primary) hypertension; Z96.649 Presence of unspecified artificial hip joint; E78.5 Hyperlipidemia, unspecified; K21.9 Gastro-esophageal reflux disease without esophagitis; Z86.73 Personal history of transient ischemic attack (TIA), and cerebral infarction without residual deficits; F17.200 Nicotine dependence, unspecified, uncomplicated; Z79.899 Other long term (current) drug therapy; Z88.1 Allergy status to other antibiotic agents

== ENCOUNTER → 2021-11-29 | Outpatient (CLI) | payer MEDICARE, BC, OTHER | LOC: M SOG 09:43 | PROVIDERS: ATTEND Orthopaedic Surgery Adult Reconstructive Orthopaedic Surgery | DX: S82.001A Unspecified fracture of right patella, initial encounter for closed fracture (principal) ==

== ENCOUNTER → 2021-12-05 | Outpatient (CLI) | payer MEDICARE, BC, OTHER | LOC: M SOG 08:20 | PROVIDERS: ATTEND Orthopaedic Surgery Adult Reconstructive Orthopaedic Surgery | DX: S82.001A Unspecified fracture of right patella, initial encounter for closed fracture (principal) ==

== ENCOUNTER 2021-12-18 20:42 | Emergency (ER) | payer MEDICARE, BC, OTHER ==
[~2021-12-18] VITALS: Ht 162.6 cm; Wt 56.8 kg
[2021-12-18] MEDS ORDERED: NS 500 ML IV ONE (21:35)
[2021-12-18 22:39] LABS: BASO % 0.3 % (0.0-1.0); EOS % 0.2 % (0.0-3.0); HEMATOCRIT 32.5 % (36.0-47.0); HEMOGLOBIN 11.2 g/dl (12.0-15.5); LYMPH # 1.8 10^3/uL (1.5-5.0); LYMPH % 12.6 % (24.0-44.0); MEAN CORPUSCULAR HEMOGLOBIN 31.7 pg (27.0-33.0); MEAN CORPUSCULAR HGB CONC 34.5 g/dl (32.0-36.5); MEAN CORPUSCULAR VOLUME 92.1 fl (80.0-96.0); MONO # 1.1 10^3/uL (0.0-0.8); MONO % 7.4 % (2.0-8.0); NEUTROPHILS # 11.5 10^3/uL (1.5-8.5); NEUTROPHILS % 79.1 % (36.0-66.0); PLATELET COUNT, AUTOMATED 348 10^3/uL (150-450); RED BLOOD COUNT 3.53 10^6/uL (4.00-5.40); WHITE BLOOD COUNT 14.6 10^3/uL (4.0-10.0)
[2021-12-18] MEDS ORDERED: BOOSTRIX/ADACEL VACCINE (DIPHTH/PERTUSS/ACELL/TETANUS) 0.5ML SYR IM.IMMUN ONE (22:40)
[2021-12-18 23:47] LABS: ALBUMIN 3.9 GM/DL (3.2-5.2); ALT/SGPT 17 U/L (12-78); BILIRUBIN,DIRECT < 0.1 MG/DL (0.0-0.2); BILIRUBIN,TOTAL 0.2 MG/DL (0.2-1.0); BLOOD UREA NITROGEN 13 MG/DL (7-18); CALCIUM LEVEL 9.2 MG/DL (8.8-10.2); CARBON DIOXIDE LEVEL 20 MEQ/L (21-32); CHLORIDE LEVEL 103 MEQ/L (98-107); CREATININE FOR GFR 0.61 MG/DL (0.55-1.30); ETHYL ALCOHOL (ETHANOL) 0.242 % (0.000-0.010); GLOMERULAR FILTRATION RATE > 60.0 (>39); GLUCOSE, FASTING 102 MG/DL (70-100); SODIUM LEVEL 134 MEQ/L (136-145); TOTAL PROTEIN 7.1 GM/DL (6.4-8.2)
[2021-12-18 23:52] VITALS: BP 121/89
== END 2021-12-19 00:09 | disposition home or self-care (01) ==
LOC: M ED 20:42
DX: S00.03XA Contusion of scalp, initial encounter (principal); W07.XXXA Fall from chair, initial encounter; Y92.89 Other specified places as the place of occurrence of the external cause; F10.229 Alcohol dependence with intoxication, unspecified; Y90.1 Blood alcohol level of 20-39 mg/100 ml; I10 Essential (primary) hypertension; K21.9 Gastro-esophageal reflux disease without esophagitis; Z88.1 Allergy status to other antibiotic agents; Z86.73 Personal history of transient ischemic attack (TIA), and cerebral infarction without residual deficits; Z79.899 Other long term (current) drug therapy

== ENCOUNTER → 2022-01-05 | Outpatient (CLI) | payer MEDICARE, BC, OTHER | LOC: M SOG 08:04 | PROVIDERS: ATTEND Orthopaedic Surgery Adult Reconstructive Orthopaedic Surgery | DX: S82.031D Displaced transverse fracture of right patella, subsequent encounter for closed fracture with routine healing (principal) ==

== ENCOUNTER → 2022-02-20 | Outpatient (CLI) | payer MEDICARE, BC, OTHER ==
[2022-02-20 13:52] LABS: ALBUMIN 3.9 GM/DL (3.2-5.2); BLOOD UREA NITROGEN 14 MG/DL (7-18); CALCIUM LEVEL 9.2 MG/DL (8.8-10.2); CARBON DIOXIDE LEVEL 28 MEQ/L (21-32); CHLORIDE LEVEL 98 MEQ/L (98-107); CREATININE FOR GFR 0.73 MG/DL (0.55-1.30); GLOMERULAR FILTRATION RATE > 60.0 (>39); GLUCOSE, FASTING 99 MG/DL (70-100); PHOSPHORUS LEVEL 3.6 MG/DL (2.5-4.9); POTASSIUM SERUM 4.5 MEQ/L (3.5-5.1); SODIUM LEVEL 132 MEQ/L (136-145)
[2022-02-20 14:13] LABS: APPEARANCE, URINE MANUAL CLEAR (CLEAR); COLOR, URINE MANUAL YELLOW (YELLOW)
[2022-02-20 14:14] LABS: BILIRUBIN, URINE MANUAL NEGATIVE (NEGATIVE); BLOOD URINE MANUAL NEGATIVE (NEGATIVE); GLUCOSE, URINE (UA) MANUAL NEGATIVE (NEGATIVE); KETONE, URINE MANUAL NEGATIVE (NEGATIVE); LEUKOCYTE ESTERASE, URINE MAN NEGATIVE (NEGATIVE); NITRITE, URINE MANUAL NEGATIVE (NEGATIVE); PROTEIN, URINE MANUAL NEGATIVE (NEGATIVE); SPECIFIC GRAVITY,URINE MANUAL 1.005 (1.002-1.035); UROBILINOGEN, URINE MANUAL NORMAL (NORMAL)
[2022-02-20 15:10] LABS: CREATININE, URINE 88.5 MG/DL; MALB URINE SIEMENS 8.8 MG/L; MAU/CREAT RATIO 9.9 MCG/MG (0.0-30.0); SODIUM,RANDOM URINE 14 MEQ/L; TOTAL 25(OH) VITAMIN D 48.3 NG/ML (30.0-100.0)
[2022-02-20 15:44] LABS: OSMOLALITY URINE 450 MOSM/KG (50-1400)
== END ==
LOC: M WUC 11:42
PROVIDERS: ATTEND Family Medicine
DX: Z00.00 Encounter for general adult medical examination without abnormal findings (principal); I10 Essential (primary) hypertension; E87.1 Hypo-osmolality and hyponatremia; E55.9 Vitamin D deficiency, unspecified
CPT/HCPCS: 36415; 80069; 81002; 82043; 82306; 83935; 84300; G0472

== ENCOUNTER → 2022-06-12 | Outpatient (CLI) | payer MEDICARE, BC, OTHER ==
[~2022-06-12] MED LIST changes: +CHOL25TA8 PO
[2022-06-12 16:41] LABS: BASO # 0.1 10^3/uL (0.0-0.2); BASO % 0.7 % (0.0-1.0); EOS # 0.2 10^3/uL (0.0-0.5); EOS % 1.8 % (0.0-3.0); HEMATOCRIT 36.2 % (36.0-47.0); HEMOGLOBIN 11.9 g/dl (12.0-15.5); LYMPH # 2.6 10^3/uL (1.5-5.0); LYMPH % 22.4 % (24.0-44.0); MEAN CORPUSCULAR HGB CONC 32.9 g/dl (32.0-36.5); MEAN CORPUSCULAR VOLUME 94.3 fl (80.0-96.0); MONO # 1.3 10^3/uL (0.0-0.8); MONO % 10.9 % (2.0-8.0); NEUTROPHILS # 7.5 10^3/uL (1.5-8.5); NEUTROPHILS % 63.7 % (36.0-66.0); PLATELET COUNT, AUTOMATED 463 10^3/uL (150-450); RED BLOOD COUNT 3.84 10^6/uL (4.00-5.40); WHITE BLOOD COUNT 11.7 10^3/uL (4.0-10.0)
[2022-06-12 17:24] LABS: FERRITIN 133.9 NG/ML (7.3-270.7)
[2022-06-12 17:28] LABS: VITAMIN B12 LEVEL 299 PG/ML (211-911)
[2022-06-12 17:30] LABS: ALBUMIN 3.8 G/DL (3.2-5.2); ALKALINE PHOSPHATASE 69 U/L (46-116); ALT/SGPT 12 U/L (7.0-40); AST/SGOT 18 U/L (<34); BILIRUBIN,TOTAL 0.3 MG/DL (0.3-1.2); BLOOD UREA NITROGEN 12 MG/DL (9-23); CALCIUM LEVEL 8.8 MG/DL (8.3-10.6); CARBON DIOXIDE LEVEL 30 MMOL/L (20-31); CHLORIDE LEVEL 102 MMOL/L (98-107); CREATININE FOR GFR 0.61 MG/DL (0.55-1.30); GLOMERULAR FILTRATION RATE > 60.0 (>39); GLUCOSE, FASTING 114 MG/DL (74-106); SODIUM LEVEL 138 MMOL/L (136-145); TOTAL PROTEIN 7.2 G/DL (5.7-8.2)
== END ==
LOC: M WUC 11:30
PROVIDERS: ATTEND Family Medicine
DX: I10 Essential (primary) hypertension (principal); D75.89 Other specified diseases of blood and blood-forming organs; D50.9 Iron deficiency anemia, unspecified

== ENCOUNTER → 2022-06-19 | Outpatient (CLI) | payer MEDICARE, BC, OTHER | LOC: M LABSMTC 12:08 | PROVIDERS: ATTEND Anesthesiology | DX: Z01.818 Encounter for other preprocedural examination (principal); Z11.52 Encounter for screening for COVID-19 ==

== ENCOUNTER 2023-02-16 21:54 | Inpatient (IN) | payer MEDICARE, BC, OTHER ==
[~2023-02-16] VITALS: Ht 162.6 cm; Wt 62.7 kg
[~2023-02-16 21:54] MED LIST changes: +THIAMINE 100 MG TAB PO SCH
[2023-02-16 22:19] LABS: BASO # 0.1 10^3/uL (0.0-0.2); BASO % 0.4 % (0.0-1.0); EOS # 0.1 10^3/uL (0.0-0.5); HEMATOCRIT 31.3 % (36.0-47.0); HEMOGLOBIN 10.7 g/dl (12.0-15.5); LYMPH # 2.5 10^3/uL (1.5-5.0); LYMPH % 21.1 % (24.0-44.0); MEAN CORPUSCULAR HEMOGLOBIN 31.9 pg (27.0-33.0); MEAN CORPUSCULAR HGB CONC 34.2 g/dl (32.0-36.5); MEAN CORPUSCULAR VOLUME 93.4 fl (80.0-96.0); MONO # 1.1 10^3/uL (0.0-0.8); MONO % 9.4 % (2.0-8.0); NEUTROPHILS % 67.8 % (36.0-66.0); PLATELET COUNT, AUTOMATED 320 10^3/uL (150-450); RED BLOOD COUNT 3.35 10^6/uL (4.00-5.40); WHITE BLOOD COUNT 11.8 10^3/uL (4.0-10.0)
[2023-02-16 22:45] LABS: BLOOD UREA NITROGEN 11 MG/DL (9-23); CALCIUM LEVEL 8.4 MG/DL (8.3-10.6); CARBON DIOXIDE LEVEL 24 MMOL/L (20-31); CHLORIDE LEVEL 100 MMOL/L (98-107); CREATININE FOR GFR 0.67 MG/DL (0.55-1.30); GLOMERULAR FILTRATION RATE > 60.0 (>39); GLUCOSE, FASTING 96 MG/DL (74-106); SODIUM LEVEL 132 MMOL/L (136-145)
[2023-02-16 22:52] LABS: RSV AMPLIFICATION NEGATIVE (NEGATIVE)
[2023-02-16] MEDS ORDERED: fentaNYL 100 MCG/2 ML INJECTION IV ONE (23:10)
[2023-02-16] MEDS ORDERED: ACETAMINOPHEN *IV* 1,000 MG in IV 1 EA IV ONE (23:10)
[2023-02-17] VITALS (21 sets, daily range): BP systolic 126–190; BP diastolic 57–81; TEMP 97–99; O2SAT 95–98
[2023-02-17] MEDS ORDERED: ALRE0.5S OU (00:32)
[2023-02-17] MEDS ORDERED: CYCL1DRO10 OU (00:32)
[2023-02-17] MEDS ORDERED: NICOTINE 21MG/24HR 1 EA TRANSDERMAL TD PRN (00:35)
[2023-02-17] MEDS ORDERED: LORazepam 2 MG TAB PO PRN (00:35)
[2023-02-17] MEDS ORDERED: MOM 30ML SUSPENSION UDC PO PRN (00:35)
[2023-02-17] MEDS ORDERED: HOME MED LIST COMPLETE! XX SCH (00:35)
[2023-02-17] MEDS ORDERED: MAALOX 30 ML SUSP *UDC PO PRN (00:35)
[2023-02-17 00:43] LABS: ETHYL ALCOHOL (ETHANOL) 0.185 % (0.000-0.010)
[2023-02-17] MEDS: MORPHINE 2 MG/ML 1ML VIAL IV PRN ×3 (00:51→13:39)
[2023-02-17] MEDS ORDERED: NS 1,000 ML IV SCH ×2 (01:00→07:05)
[2023-02-17] MEDS: ACETAMINOPHEN TAB 650MG DOSE (2X325MG) PO PRN ×2 (01:59→10:38)
[2023-02-17] MEDS: PARoxetine 10MG TABLET PO SCH ×2 (01:59→21:21)
[2023-02-17 05:43] LABS: BASO % 0.4 % (0.0-1.0); EOS # 0.1 10^3/uL (0.0-0.5); EOS % 0.5 % (0.0-3.0); HEMATOCRIT 30.8 % (36.0-47.0); HEMOGLOBIN 10.6 g/dl (12.0-15.5); LYMPH # 1.8 10^3/uL (1.5-5.0); LYMPH % 18.3 % (24.0-44.0); MEAN CORPUSCULAR HEMOGLOBIN 31.5 pg (27.0-33.0); MEAN CORPUSCULAR HGB CONC 34.4 g/dl (32.0-36.5); MEAN CORPUSCULAR VOLUME 91.7 fl (80.0-96.0); MONO # 0.8 10^3/uL (0.0-0.8); NEUTROPHILS # 6.9 10^3/uL (1.5-8.5); NEUTROPHILS % 72.4 % (36.0-66.0); PLATELET COUNT, AUTOMATED 312 10^3/uL (150-450); RED BLOOD COUNT 3.36 10^6/uL (4.00-5.40); WHITE BLOOD COUNT 9.5 10^3/uL (4.0-10.0)
[2023-02-17 06:13] LABS: BLOOD UREA NITROGEN 8 MG/DL (9-23); CALCIUM LEVEL 8.3 MG/DL (8.3-10.6); CARBON DIOXIDE LEVEL 24 MMOL/L (20-31); CHLORIDE LEVEL 103 MMOL/L (98-107); CREATININE FOR GFR 0.61 MG/DL (0.55-1.30); GLOMERULAR FILTRATION RATE > 60.0 (>39); GLUCOSE, FASTING 90 MG/DL (74-106); MAGNESIUM LEVEL 0.8 MG/DL (1.8-2.4); POTASSIUM SERUM 4.1 MMOL/L (3.5-5.1); SODIUM LEVEL 137 MMOL/L (136-145)
[2023-02-17] MEDS: MAG SULF 1GM/100ML (MAG RUN) 1 GM in IV 1 EA IV SCH ×5 (06:28→10:37)
[2023-02-17 07:54] LABS: INR 1.02; PROTHROMBIN TIME 13.1 SECONDS (12.5-14.5)
[2023-02-17] MEDS ORDERED: CYCLOSPORINE 0.05% OU SCH (09:00)
[2023-02-17] MEDS ORDERED: LOTEPREDNOL 0.2% OU SCH (09:00)
[2023-02-17] MEDS ORDERED: OPTH EMULSION OU SCH (09:00)
[2023-02-17] MEDS: MULTIVITAMINS/MINERALS THERAP 1 TAB PO SCH (10:37)
[2023-02-17] MEDS: THIAMINE 100 MG TAB PO SCH (10:37)
[2023-02-17] MEDS: FOLIC ACID 1MG TAB PO SCH (10:37)
[2023-02-17] MEDS: LOSARTAN 50MG TABLET PO SCH (10:38)
[2023-02-17] MEDS: OMEPRAZOLE 20MG CAP PO SCH (10:38)
[2023-02-17] MEDS ORDERED: REST0.05 OP (10:47)
[2023-02-17] MEDS ORDERED: CLEA6.5D OP (10:47)
[2023-02-17] MEDS ORDERED: POLYVINYL ALCOHOL OPHTH SOLN 15ML (LIQUITEARS) OU PRN (11:05)
[2023-02-17] MEDS ORDERED: hydrALAZINE 20MG/ML 1ML VIAL IV STA (12:05)
[2023-02-17] MEDS ORDERED: hydrALAZINE 20MG/ML 1ML VIAL IV PRN (13:00)
[2023-02-17] MEDS ORDERED: HYDROMORPHONE HCL 0.5 MG/ 0.5 ML SYRINGE IV PRN ×2 (13:40)
[2023-02-17] MEDS ORDERED: OXAZEPAM 10MG CAP PO ONE (14:00)
[2023-02-17] MEDS ORDERED: hydrALAZINE 20MG/ML 1ML VIAL IV ONE (14:00)
[2023-02-17] MEDS ORDERED: VANCOMYCIN 1000MG/20ML VIAL As Ordered ONE (14:11)
[2023-02-17] MEDS ORDERED: TRANEXAMIC ACID 100 MG/ML 10ML VIAL As Ordered ONE ×2 (14:11→15:52)
[2023-02-17] MEDS ORDERED: ceFAZolin 2 GM/D5W 50 ML IV BAG As Ordered ONE ×2 (14:12→15:52)
[2023-02-17] MEDS ORDERED: MIDAZOLAM INJ 2MG/2ML VIAL As Ordered ONE (15:41)
[2023-02-17] MEDS ORDERED: LIDOCAINE 2% 100MG/5ML SDV (FOR ANES.) As Ordered ONE (15:41)
[2023-02-17] MEDS ORDERED: ROCURONIUM BROMIDE 50MG/5ML VIAL As Ordered ONE (15:41)
[2023-02-17] MEDS ORDERED: propofoL 200 MG/20 ML VIAL As Ordered ONE (15:41)
[2023-02-17] MEDS ORDERED: fentaNYL 100 MCG/2 ML INJECTION As Ordered ONE ×2 (15:41→18:22)
[2023-02-17] MEDS ORDERED: ONDANSETRON 4MG 2ML VIAL As Ordered ONE (15:42)
[2023-02-17] MEDS ORDERED: KETOROLAC 60MG 2ML VIAL As Ordered ONE (15:42)
[2023-02-17] MEDS ORDERED: LR 1,000 ML IV SCH (16:40)
[2023-02-17] MEDS ORDERED: ONDANSETRON 4MG 2ML VIAL IV PRN (16:40)
[2023-02-17] MEDS ORDERED: MORPHINE 2 MG/ML 1ML VIAL IV PRN (16:45)
[2023-02-17] MEDS ORDERED: ACETAMINOPHEN 1000MG 100ML IV BAG As Ordered ONE (18:23)
[2023-02-17] MEDS ORDERED: SUGAMMADEX SODIUM 500 MG/5 ML VIAL (BRIDION) As Ordered ONE (19:08)
[2023-02-17] MEDS: OXAZEPAM 10MG CAP PO SCH (21:05)
[2023-02-18] VITALS (29 sets, daily range): BP systolic 105–147; BP diastolic 51–67; TEMP 97.4–99.6; O2SAT 93–99
[2023-02-18 05:17] LABS: BASO % 0.2 % (0.0-1.0); HEMATOCRIT 28.4 % (36.0-47.0); HEMOGLOBIN 9.8 g/dl (12.0-15.5); MEAN CORPUSCULAR HEMOGLOBIN 32.3 pg (27.0-33.0); MEAN CORPUSCULAR HGB CONC 34.5 g/dl (32.0-36.5); MEAN CORPUSCULAR VOLUME 93.7 fl (80.0-96.0); MONO # 1.3 10^3/uL (0.0-0.8); MONO % 11.4 % (2.0-8.0); NEUTROPHILS # 9.2 10^3/uL (1.5-8.5); NEUTROPHILS % 79.1 % (36.0-66.0); PLATELET COUNT, AUTOMATED 296 10^3/uL (150-450); RED BLOOD COUNT 3.03 10^6/uL (4.00-5.40); WHITE BLOOD COUNT 11.6 10^3/uL (4.0-10.0)
[2023-02-18] MEDS: OXAZEPAM 10MG CAP PO SCH (05:35)
[2023-02-18 05:55] LABS: BLOOD UREA NITROGEN 9 MG/DL (9-23); CALCIUM LEVEL 7.7 MG/DL (8.3-10.6); CARBON DIOXIDE LEVEL 24 MMOL/L (20-31); CHLORIDE LEVEL 106 MMOL/L (98-107); CREATININE FOR GFR 0.62 MG/DL (0.55-1.30); GLOMERULAR FILTRATION RATE > 60.0 (>39); GLUCOSE, FASTING 121 MG/DL (74-106); MAGNESIUM LEVEL 2.2 MG/DL (1.8-2.4); POTASSIUM SERUM 4.2 MMOL/L (3.5-5.1); SODIUM LEVEL 138 MMOL/L (136-145)
[2023-02-18] MEDS ORDERED: LR 1,000 ML IV SCH (07:35)
[2023-02-18] MEDS ORDERED: PERCOCET 5MG/325MG TAB PO PRN ×3 (08:25→13:20)
[2023-02-18] MEDS ORDERED: MIRALAX *UNIT DOSE* 17GM PACKET PO PRN (08:25)
[2023-02-18] MEDS: ASPIRIN 81MG ENTERIC TABLET PO SCH (08:33)
[2023-02-18] MEDS: ENOXAPARIN 40MG/0.4ML SYRINGE (J1650 PER 10MG) SC SCH (08:33)
[2023-02-18] MEDS: THIAMINE 100 MG TAB PO SCH (08:34)
[2023-02-18] MEDS: FOLIC ACID 1MG TAB PO SCH (08:34)
[2023-02-18] MEDS: MULTIVITAMINS/MINERALS THERAP 1 TAB PO SCH (08:34)
[2023-02-18] MEDS: SENOKOT S TAB PO SCH ×2 (08:34→20:13)
[2023-02-18] MEDS: OMEPRAZOLE 20MG CAP PO SCH (08:36)
[2023-02-18] MEDS: LOSARTAN 50MG TABLET PO SCH (08:36)
[2023-02-18] MEDS ORDERED: CYCLOBENZAPRINE 10MG TABLET PO PRN (09:45)
[2023-02-18] MEDS ORDERED: PILL CUTTER 1 EACH XX ONE (10:29)
[2023-02-18] MEDS ORDERED: MORPHINE 2 MG/ML 1ML VIAL IV ONE (13:20)
[2023-02-18] MEDS: PERCOCET 5MG/325MG TAB PO PRN (18:33)
[2023-02-18] MEDS: PARoxetine 10MG TABLET PO SCH (20:13)
[2023-02-18] MEDS ORDERED: OXAZEPAM 10MG CAP PO SCH (21:00)
[2023-02-19] VITALS (21 sets, daily range): BP systolic 123–156; BP diastolic 58–80; TEMP 98–98.7; O2SAT 90–99
[2023-02-19 07:19] LABS: BASO # 0.1 10^3/uL (0.0-0.2); BASO % 0.5 % (0.0-1.0); EOS # 0.1 10^3/uL (0.0-0.5); EOS % 0.7 % (0.0-3.0); HEMATOCRIT 29.9 % (36.0-47.0); HEMOGLOBIN 9.9 g/dl (12.0-15.5); LYMPH # 1.7 10^3/uL (1.5-5.0); LYMPH % 17.7 % (24.0-44.0); MEAN CORPUSCULAR HEMOGLOBIN 31.4 pg (27.0-33.0); MEAN CORPUSCULAR HGB CONC 33.1 g/dl (32.0-36.5); MEAN CORPUSCULAR VOLUME 94.9 fl (80.0-96.0); MONO # 1.3 10^3/uL (0.0-0.8); MONO % 13.1 % (2.0-8.0); NEUTROPHILS # 6.5 10^3/uL (1.5-8.5); NEUTROPHILS % 67.8 % (36.0-66.0); PLATELET COUNT, AUTOMATED 309 10^3/uL (150-450); RED BLOOD COUNT 3.15 10^6/uL (4.00-5.40); WHITE BLOOD COUNT 9.6 10^3/uL (4.0-10.0)
[2023-02-19 07:44] LABS: BLOOD UREA NITROGEN 8 MG/DL (9-23); CALCIUM LEVEL 8.7 MG/DL (8.3-10.6); CARBON DIOXIDE LEVEL 26 MMOL/L (20-31); CHLORIDE LEVEL 106 MMOL/L (98-107); GLOMERULAR FILTRATION RATE > 60.0 (>39); GLUCOSE, FASTING 99 MG/DL (74-106); POTASSIUM SERUM 3.9 MMOL/L (3.5-5.1); SODIUM LEVEL 138 MMOL/L (136-145)
[2023-02-19] MEDS: SENOKOT S TAB PO SCH (09:00)
[2023-02-19] MEDS: ENOXAPARIN 40MG/0.4ML SYRINGE (J1650 PER 10MG) SC SCH (09:35)
[2023-02-19] MEDS: THIAMINE 100 MG TAB PO SCH (09:35)
[2023-02-19] MEDS: OMEPRAZOLE 20MG CAP PO SCH (09:35)
[2023-02-19] MEDS: FOLIC ACID 1MG TAB PO SCH (09:36)
[2023-02-19] MEDS: ASPIRIN 81MG ENTERIC TABLET PO SCH (09:36)
[2023-02-19] MEDS: MULTIVITAMINS/MINERALS THERAP 1 TAB PO SCH (09:36)
[2023-02-19] MEDS: LOSARTAN 50MG TABLET PO SCH (09:38)
[2023-02-19] MEDS: PERCOCET 5MG/325MG TAB PO PRN ×2 (10:24→15:45)
[2023-02-19] MEDS ORDERED: FOLI1TAB11 PO (10:41)
[2023-02-19] MEDS ORDERED: ASPI81TAEC PO (10:41)
[2023-02-19] MEDS ORDERED: LOVE1INJ SC (10:41)
[2023-02-19] MEDS ORDERED: PERCOCET PO (10:41)
[2023-02-19] MEDS ORDERED: THIA100TA PO (10:41)
[2023-02-19] MEDS ORDERED: ACET1TAB55 PO (10:41)
[2023-02-19] MEDS ORDERED: CYCL10TA20 PO (10:41)
[2023-02-19] MEDS ORDERED: VITMTA PO (10:41)
== END 2023-02-19 12:41 | DRG 522 ==
LOC: M ED 21:54 → EDBD 21:54 → M ED INP 23:45 → CANRESERV 02-17 00:10 → ENRESERV 02-17 00:10 → M MSPAV 02-17 01:28 → M PCU 02-17 12:57
PROVIDERS: ADMIT Family Medicine; ATTEND Internal Medicine
PROC: 0SRR0J9 Replacement of Right Hip Joint, Femoral Surface with Synthetic Substitute, Cemented, Open Approach (ICD-10-PCS; principal; 2023-02-17 13:24)
DX: S72.091A Other fracture of head and neck of right femur, initial encounter for closed fracture (principal); F32.A Depression, unspecified; F41.9 Anxiety disorder, unspecified; M19.90 Unspecified osteoarthritis, unspecified site; H40.9 Unspecified glaucoma; K21.9 Gastro-esophageal reflux disease without esophagitis; M81.0 Age-related osteoporosis without current pathological fracture; I10 Essential (primary) hypertension; I34.0 Nonrheumatic mitral (valve) insufficiency; E04.2 Nontoxic multinodular goiter; Z86.73 Personal history of transient ischemic attack (TIA), and cerebral infarction without residual deficits; F17.210 Nicotine dependence, cigarettes, uncomplicated; Z96.642 Presence of left artificial hip joint; F10.20 Alcohol dependence, uncomplicated; Z79.899 Other long term (current) drug therapy; Z88.1 Allergy status to other antibiotic agents; Z88.5 Allergy status to narcotic agent; E83.42 Hypomagnesemia; E03.9 Hypothyroidism, unspecified; W18.30XA Fall on same level, unspecified, initial encounter; Y92.012 Bathroom of single-family (private) house as the place of occurrence of the external cause; Y93.89 Activity, other specified; Y99.8 Other external cause status

== ENCOUNTER 2023-02-19 11:49 | Inpatient (IN) | payer MEDICARE, BC, OTHER ==
[~2023-02-19] VITALS: Ht 162.6 cm; Wt 62.7 kg
[~2023-02-19 11:49] MED LIST changes: +ACET1TAB55 PO; +ALRE0.5S OU; +ASPI81TAEC PO; +CLEA6.5D OP; +CYCL10TA20 PO; +CYCL1DRO10 OU; +FOLI1TAB11 PO; +LOVE1INJ SC; +PERCOCET PO; +REST0.05 OP; +THIA100TA PO; -THIAMINE 100 MG TAB PO SCH
[2023-02-19] MEDS ORDERED: BISACODYL 10MG SUPP PR PRN (12:30)
[2023-02-19] MEDS ORDERED: SENNA 8.6 MG TAB (SENOKOT) PO PRN (12:30)
[2023-02-19] MEDS ORDERED: POLYVINYL ALCOHOL OPHTH SOLN 15ML (LIQUITEARS) OU PRN (12:30)
[2023-02-19 16:00] VITALS: BP 164/74; TEMP 99.1; O2SAT 99
[2023-02-19 20:00] VITALS: BP 129/62; TEMP 96.7; O2SAT 100
[2023-02-19] MEDS: methocarbamoL 500 MG TAB PO SCH (20:11)
[2023-02-19] MEDS: PARoxetine 10MG TABLET PO SCH (20:11)
[2023-02-19] MEDS: ACETAMINOPHEN 500 MG TAB PO SCH (20:12)
[2023-02-19] MEDS ORDERED: ENTER DRUG NAME HERE (PATIENT'S OWN MED) OP SA SCH (21:00)
[2023-02-19] MEDS: oxyCODONE 5MG TAB PO PRN (21:46)
[2023-02-20] MEDS: oxyCODONE 5MG TAB PO PRN ×4 (03:56→20:05)
[2023-02-20 06:00] VITALS: BP 153/67; TEMP 97; O2SAT 95
[2023-02-20 06:12] LABS: ALBUMIN 2.7 G/DL (3.2-5.2); ALKALINE PHOSPHATASE 57 U/L (46-116); ALT/SGPT 16 U/L (7.0-40); AST/SGOT 24 U/L (<34); BILIRUBIN,TOTAL 0.4 MG/DL (0.3-1.2); BLOOD UREA NITROGEN 7 MG/DL (9-23); CALCIUM LEVEL 8.5 MG/DL (8.3-10.6); CARBON DIOXIDE LEVEL 25 MMOL/L (20-31); CHLORIDE LEVEL 108 MMOL/L (98-107); CREATININE FOR GFR 0.54 MG/DL (0.55-1.30); GLOMERULAR FILTRATION RATE > 60.0 (>39); GLUCOSE, FASTING 107 MG/DL (74-106); IRON (FE) 12 UG/DL (50-170); PERCENT SATURATION 5.4 % (13.2-45.0); SODIUM LEVEL 141 MMOL/L (136-145); TOTAL IRON BINDING CAPACITY 221 UG/DL (250-425); TOTAL PROTEIN 5.6 G/DL (5.7-8.2)
[2023-02-20 06:14] LABS: TOTAL 25(OH) VITAMIN D 42.4 NG/ML (20.0-100.0)
[2023-02-20 06:15] LABS: FOLATE 19.44 NG/ML (>5.4); VITAMIN B12 LEVEL 232 PG/ML (211-911)
[2023-02-20] MEDS: ACETAMINOPHEN 500 MG TAB PO SCH ×3 (09:00→20:05)
[2023-02-20] MEDS: MIRALAX *UNIT DOSE* 17GM PACKET PO SCH (09:00)
[2023-02-20] MEDS: methocarbamoL 500 MG TAB PO SCH ×3 (09:13→20:04)
[2023-02-20] MEDS: ENOXAPARIN 40MG/0.4ML SYRINGE (J1650 PER 10MG) SC SCH (09:13)
[2023-02-20] MEDS: ASPIRIN 81MG ENTERIC TABLET PO SCH (09:13)
[2023-02-20] MEDS: LOSARTAN 50MG TABLET PO SCH (09:14)
[2023-02-20] MEDS: MULTIVITAMINS/MINERALS THERAP 1 TAB PO SCH (09:14)
[2023-02-20] MEDS: OMEPRAZOLE 20MG CAP PO SCH (09:14)
[2023-02-20] MEDS ORDERED: FLUZONE HIGH DOSE(65YR UP)QUAD/PF 240MCG/0.7ML SYRINGE IM.IMMUN ONE (13:00)
[2023-02-20 13:04] LABS: FERRITIN 137.8 NG/ML (7.3-270.7)
[2023-02-20 14:00] VITALS: BP 138/63; TEMP 98.9; O2SAT 100
[2023-02-20] MEDS: FERROUS GLUCONATE 324 MG TAB PO SCH (18:16)
[2023-02-20 20:00] VITALS: BP 143/66; TEMP 97.4; O2SAT 96
[2023-02-20] MEDS: PARoxetine 10MG TABLET PO SCH (20:04)
[2023-02-21] MEDS: oxyCODONE 5MG TAB PO PRN (05:17)
[2023-02-21 06:00] VITALS: BP 154/78; TEMP 98.3; O2SAT 100
[2023-02-21] MEDS: MIRALAX *UNIT DOSE* 17GM PACKET PO SCH ×2 (09:00→09:55)
[2023-02-21] MEDS: FERROUS GLUCONATE 324 MG TAB PO SCH (09:34)
[2023-02-21] MEDS: ASPIRIN 81MG ENTERIC TABLET PO SCH (09:34)
[2023-02-21] MEDS: ACETAMINOPHEN 500 MG TAB PO SCH ×3 (09:34→20:59)
[2023-02-21] MEDS: OMEPRAZOLE 20MG CAP PO SCH (09:34)
[2023-02-21] MEDS: methocarbamoL 500 MG TAB PO SCH (09:34)
[2023-02-21] MEDS: MULTIVITAMINS/MINERALS THERAP 1 TAB PO SCH (09:34)
[2023-02-21] MEDS: ENOXAPARIN 40MG/0.4ML SYRINGE (J1650 PER 10MG) SC SCH (09:34)
[2023-02-21] MEDS: LOSARTAN 50MG TABLET PO SCH (09:34)
[2023-02-21 14:00] VITALS: BP 153/67; TEMP 98.1; O2SAT 98
[2023-02-21] MEDS ORDERED: oxyCODONE 5MG TAB PO PRN ×2 (14:10→14:15)
[2023-02-21] MEDS: methocarbamoL 750 MG TAB PO SCH ×2 (16:14→21:00)
[2023-02-21 19:54] VITALS: BP 169/81; TEMP 97; O2SAT 97
[2023-02-21] MEDS: PARoxetine 10MG TABLET PO SCH (20:59)
[2023-02-21 23:48] VITALS: BP 152/78
[2023-02-22 06:05] VITALS: BP 162/78; TEMP 98; O2SAT 97
[2023-02-22 06:35] LABS: HEMATOCRIT 26.9 % (36.0-47.0); HEMOGLOBIN 9.1 g/dl (12.0-15.5); MEAN CORPUSCULAR HGB CONC 33.8 g/dl (32.0-36.5); MEAN CORPUSCULAR VOLUME 94.7 fl (80.0-96.0); PLATELET COUNT, AUTOMATED 366 10^3/uL (150-450); RED BLOOD COUNT 2.84 10^6/uL (4.00-5.40); WHITE BLOOD COUNT 6.9 10^3/uL (4.0-10.0)
[2023-02-22 06:58] LABS: BLOOD UREA NITROGEN 9 MG/DL (9-23); CALCIUM LEVEL 8.8 MG/DL (8.3-10.6); CARBON DIOXIDE LEVEL 26 MMOL/L (20-31); CHLORIDE LEVEL 105 MMOL/L (98-107); CREATININE FOR GFR 0.59 MG/DL (0.55-1.30); GLOMERULAR FILTRATION RATE > 60.0 (>39); GLUCOSE, FASTING 100 MG/DL (74-106); MAGNESIUM LEVEL 1.6 MG/DL (1.8-2.4); POTASSIUM SERUM 4.1 MMOL/L (3.5-5.1); SODIUM LEVEL 140 MMOL/L (136-145)
[2023-02-22] MEDS: OMEPRAZOLE 20MG CAP PO SCH (08:58)
[2023-02-22] MEDS: MULTIVITAMINS/MINERALS THERAP 1 TAB PO SCH (08:58)
[2023-02-22] MEDS: ACETAMINOPHEN 500 MG TAB PO SCH ×3 (08:59→20:31)
[2023-02-22] MEDS: LOSARTAN 50MG TABLET PO SCH (08:59)
[2023-02-22] MEDS: FERROUS GLUCONATE 324 MG TAB PO SCH (08:59)
[2023-02-22] MEDS: ASPIRIN 81MG ENTERIC TABLET PO SCH (08:59)
[2023-02-22] MEDS: methocarbamoL 750 MG TAB PO SCH ×4 (08:59→20:30)
[2023-02-22] MEDS: ENOXAPARIN 40MG/0.4ML SYRINGE (J1650 PER 10MG) SC SCH (09:00)
[2023-02-22] MEDS ORDERED: MAGNESIUM OXIDE 400MG TAB (MAG-OX) PO ONE (12:00)
[2023-02-22] MEDS: amLODIPine 5 MG TAB PO SCH (12:34)
[2023-02-22 14:00] VITALS: BP 160/75; TEMP 97.1; O2SAT 100
[2023-02-22 19:42] VITALS: BP 137/65; TEMP 97.8; O2SAT 95
[2023-02-22] MEDS: PARoxetine 10MG TABLET PO SCH (20:30)
[2023-02-23 06:20] VITALS: BP 158/84; TEMP 97.2; O2SAT 97
[2023-02-23] MEDS: ENOXAPARIN 40MG/0.4ML SYRINGE (J1650 PER 10MG) SC SCH (09:00)
[2023-02-23] MEDS: MIRALAX *UNIT DOSE* 17GM PACKET PO SCH (09:00)
[2023-02-23] MEDS: ACETAMINOPHEN 500 MG TAB PO SCH (09:00)
[2023-02-23] MEDS: FERROUS GLUCONATE 324 MG TAB PO SCH (09:09)
[2023-02-23] MEDS: MULTIVITAMINS/MINERALS THERAP 1 TAB PO SCH (09:09)
[2023-02-23] MEDS: methocarbamoL 750 MG TAB PO SCH (09:09)
[2023-02-23] MEDS: ASPIRIN 81MG ENTERIC TABLET PO SCH (09:09)
[2023-02-23] MEDS: LOSARTAN 50MG TABLET PO SCH (09:09)
[2023-02-23] MEDS: OMEPRAZOLE 20MG CAP PO SCH (09:09)
[2023-02-23 09:10] VITALS: BP 158/84
[2023-02-23] MEDS: amLODIPine 5 MG TAB PO SCH (09:10)
[2023-02-23] MEDS ORDERED: AMLO1TAB24 PO (12:05)
[2023-02-23] MEDS ORDERED: PERCOCET PO (12:05)
[2023-02-23] MEDS ORDERED: FERR32TA PO (12:05)
[2023-02-23] MEDS ORDERED: METH-1165 PO (12:05)
[2023-02-24 03:07] LABS: VITAMIN B1 LEVEL WHOLE BLOOD 108.9 nmol/L (66.5-200.0)
== END 2023-02-23 12:30 | disposition home or self-care (01) | DRG 561 ==
LOC: M PM&R 16:15
PROVIDERS: ADMIT Student in an Organized Health Care Education/Training Program; ATTEND Student in an Organized Health Care Education/Training Program
DX: S72.091D Other fracture of head and neck of right femur, subsequent encounter for closed fracture with routine healing (principal); F32.A Depression, unspecified; F41.9 Anxiety disorder, unspecified; M19.90 Unspecified osteoarthritis, unspecified site; H40.9 Unspecified glaucoma; K21.9 Gastro-esophageal reflux disease without esophagitis; M81.0 Age-related osteoporosis without current pathological fracture; I11.9 Hypertensive heart disease without heart failure; F10.10 Alcohol abuse, uncomplicated; G89.18 Other acute postprocedural pain; D63.8 Anemia in other chronic diseases classified elsewhere; F17.200 Nicotine dependence, unspecified, uncomplicated; D50.9 Iron deficiency anemia, unspecified; K44.9 Diaphragmatic hernia without obstruction or gangrene; Z86.73 Personal history of transient ischemic attack (TIA), and cerebral infarction without residual deficits; E04.2 Nontoxic multinodular goiter; I34.0 Nonrheumatic mitral (valve) insufficiency; E83.42 Hypomagnesemia; Z96.643 Presence of artificial hip joint, bilateral; Z79.82 Long term (current) use of aspirin; Z79.899 Other long term (current) drug therapy; Z88.1 Allergy status to other antibiotic agents; Z88.5 Allergy status to narcotic agent

== ENCOUNTER → 2023-03-01 | Outpatient (CLI) | payer MEDICARE, BC, OTHER ==
[~2023-03-01] MED LIST changes: +AMLO1TAB24 PO; +FERR32TA PO; +METH-1165 PO
== END ==
LOC: M SOG 08:02
PROVIDERS: ATTEND Physician Assistant
DX: S72.001A Fracture of unspecified part of neck of right femur, initial encounter for closed fracture (principal); W18.30XA Fall on same level, unspecified, initial encounter; Y92.009 Unspecified place in unspecified non-institutional (private) residence as the place of occurrence of the external cause

== ENCOUNTER → 2023-04-18 | Outpatient (CLI) | payer MEDICARE, BC, OTHER | LOC: M SOG 07:57 | PROVIDERS: ATTEND Physician Assistant | DX: S72.001A Fracture of unspecified part of neck of right femur, initial encounter for closed fracture (principal); Y93.9 Activity, unspecified; Y92.9 Unspecified place or not applicable ==

== ENCOUNTER → 2023-06-25 | Outpatient (CLI) | payer MEDICARE, BC ==
[~2023-06-25] MED LIST changes: +CYAN-11 PO
[2023-06-25 16:36] LABS: BASO # 0.1 10^3/uL (0.0-0.2); BASO % 0.9 % (0.0-1.0); EOS # 0.2 10^3/uL (0.0-0.5); EOS % 3.4 % (0.0-3.0); HEMATOCRIT 36.8 % (36.0-47.0); HEMOGLOBIN 12.4 g/dl (12.0-15.5); LYMPH # 1.9 10^3/uL (1.5-5.0); MEAN CORPUSCULAR HEMOGLOBIN 30.5 pg (27.0-33.0); MEAN CORPUSCULAR HGB CONC 33.7 g/dl (32.0-36.5); MEAN CORPUSCULAR VOLUME 90.6 fl (80.0-96.0); MONO # 0.8 10^3/uL (0.0-0.8); MONO % 12.1 % (2.0-8.0); NEUTROPHILS # 3.4 10^3/uL (1.5-8.5); NEUTROPHILS % 53.3 % (36.0-66.0); PLATELET COUNT, AUTOMATED 412 10^3/uL (150-450); RED BLOOD COUNT 4.06 10^6/uL (4.00-5.40); WHITE BLOOD COUNT 6.4 10^3/uL (4.0-10.0)
[2023-06-25 16:43] LABS: ALBUMIN 4.3 G/DL (3.2-5.2); ALKALINE PHOSPHATASE 65 U/L (46-116); ALT/SGPT 15 U/L (7.0-40); AST/SGOT 15 U/L (<34); BILIRUBIN,TOTAL 0.3 MG/DL (0.3-1.2); BLOOD UREA NITROGEN 12 MG/DL (9-23); CALCIUM LEVEL 9.3 MG/DL (8.3-10.6); CARBON DIOXIDE LEVEL 27 MMOL/L (20-31); CHLORIDE LEVEL 103 MMOL/L (98-107); CREATININE FOR GFR 0.69 MG/DL (0.55-1.30); GLOMERULAR FILTRATION RATE > 60.0 (>39); GLUCOSE, FASTING 129 MG/DL (74-106); POTASSIUM SERUM 4.1 MMOL/L (3.5-5.1); SODIUM LEVEL 135 MMOL/L (136-145); TOTAL PROTEIN 7.3 G/DL (5.7-8.2)
[2023-06-25 16:45] LABS: FERRITIN 80.5 NG/ML (7.3-270.7)
[2023-06-25 16:57] LABS: HEMOGLOBIN A1c 5.6 % (4.0-6.0)
== END ==
LOC: M WUC 11:09
PROVIDERS: ATTEND Family Medicine
DX: I10 Essential (primary) hypertension (principal); D75.89 Other specified diseases of blood and blood-forming organs; D50.9 Iron deficiency anemia, unspecified

== ENCOUNTER 2023-07-03 09:21 | Day surgery (SDC) | payer MEDICARE, BC ==
[~2023-07-03] VITALS: Ht 162.6 cm; Wt 59.1 kg
[2023-07-03] MEDS: ATROPINE SULFATE 1% OPHTH SOLN 2ML BTL OS SCH (10:24)
[2023-07-03] MEDS: PHENYLEPHRINE 2.5% OPHTH SOL 2ML OS SCH (10:24)
[2023-07-03] MEDS: PROPARACAINE 0.5% OPHTH SOL 15ML OS ONE (10:24)
[2023-07-03] MEDS: OFLOXACIN 0.3 % (OCUFLOX) OPTH SOL 5ML OS SCH (10:24)
[2023-07-03] MEDS: TROPICAMIDE 1% OPHTH SOLN 15ML OS SCH (10:24)
[2023-07-03] MEDS ORDERED: fentaNYL 100 MCG/2 ML INJECTION As Ordered ONE (10:57)
[2023-07-03] MEDS ORDERED: MIDAZOLAM INJ 2MG/2ML VIAL As Ordered ONE (10:57)
[2023-07-03] MEDS: BSS IRR 500ML/OMIDRIA 4ML IRR BAG (OR ONLY) As Ordered ONE (11:02)
[2023-07-03] MEDS: LIDOCAINE 1% SDV 5ML VIAL As Ordered ONE (11:03)
[2023-07-03] MEDS: CEFUROXIME 1MG/0.1ML INTRACAMERAL INJ As Ordered ONE (11:03)
[2023-07-03 11:15] VITALS: BP 108/54; TEMP 96.8; O2SAT 98
== END 2023-07-03 11:34 | disposition home or self-care (01) ==
LOC: M SDC 09:21
PROVIDERS: ATTEND Ophthalmology
DX: H25.12 Age-related nuclear cataract, left eye (principal); Z86.73 Personal history of transient ischemic attack (TIA), and cerebral infarction without residual deficits; Z88.5 Allergy status to narcotic agent; Z88.1 Allergy status to other antibiotic agents; Z79.899 Other long term (current) drug therapy; Z72.0 Tobacco use
CPT/HCPCS: 66984; J0697; J1097; J2250; J3010; V2632

== ENCOUNTER → 2023-12-14 | Outpatient (CLI) | payer MEDICARE, BC | LOC: M WHC 12:40 | PROVIDERS: ATTEND Family Medicine | DX: Z12.31 Encounter for screening mammogram for malignant neoplasm of breast (principal) ==

== ENCOUNTER → 2024-01-10 | Outpatient (CLI) | payer MEDICARE, BC | LOC: M SOG 10:31 | PROVIDERS: ATTEND Physician Assistant | DX: S72.001D Fracture of unspecified part of neck of right femur, subsequent encounter for closed fracture with routine healing (principal) ==

== ENCOUNTER → 2024-02-07 | Outpatient (CLI) | payer MEDICARE, BC | LOC: M WUC 10:30 | PROVIDERS: ATTEND Orthopaedic Surgery | DX: M25.551 Pain in right hip (principal) ==

== ENCOUNTER → 2024-05-24 | Outpatient (CLI) | payer MEDICARE, BC | LOC: M RAD 14:52 | PROVIDERS: ATTEND Pain Medicine Interventional Pain Medicine | DX: M48.061 Spinal stenosis, lumbar region without neurogenic claudication (principal) ==

== ENCOUNTER → 2024-06-16 | Outpatient (CLI) | payer MEDICARE, BC | LOC: M RAD 13:12 | PROVIDERS: ATTEND Family Medicine | DX: Z87.891 Personal history of nicotine dependence (principal) ==

== ENCOUNTER → 2024-10-21 | Outpatient (CLI) | payer MEDICARE, BC ==
[~2024-10-21] MED LIST changes: -TRIA25CR TOP; +TRIA80CR15 TOP
[2024-10-21 15:59] LABS: PLATELET COUNT, AUTOMATED 472 10^3/uL (150-450)
[2024-10-21 16:20] LABS: ALT/SGPT 14.0 U/L (7.0-40); AST/SGOT 20.0 U/L (<34); CALCIUM LEVEL 9.7 MG/DL (8.3-10.6); CARBON DIOXIDE LEVEL 26.0 MMOL/L (20-31); CHLORIDE LEVEL 100.0 MMOL/L (98-107); CHOLESTEROL LEVEL 243.0 MG/DL (<200); CHOLESTEROL RISK RATIO 2.97 (<5); CREATININE FOR GFR 0.77 MG/DL (0.55-1.30); GLOMERULAR FILTRATION RATE 81.4 (>39); LDL CHOLESTEROL 134.6 MG/DL (<100); NON-HDL-C 161.4 MG/DL; POTASSIUM SERUM 5.5 MMOL/L (3.5-5.1); SODIUM LEVEL 134.0 MMOL/L (136-145); TRIGLYCERIDES LEVEL 134.0 MG/DL (<150)
[2024-10-21 16:23] LABS: VITAMIN B12 LEVEL 397.0 PG/ML (211-911)
[2024-10-21 17:17] LABS: ESTIMATED AVERAGE GLUCOSE 108.0 MG/DL (60-110)
[2024-10-21 18:23] LABS: CREATININE, URINE 140.3 MG/DL; MALB URINE SIEMENS 5.0 MG/L; MAU/CREAT RATIO 3.5 MCG/MG (0.0-30.0)
== END ==
LOC: M PLALAB 12:01
PROVIDERS: ATTEND Family Medicine
DX: I10 Essential (primary) hypertension (principal)

== ENCOUNTER → 2024-12-22 | Outpatient (CLI) | payer MEDICARE, BC | LOC: M RAD 07:10 | PROVIDERS: ATTEND Orthopaedic Surgery | DX: M25.551 Pain in right hip (principal) | CPT/HCPCS: 78315; A9503 ==

== ENCOUNTER → 2024-12-25 | Outpatient (CLI) | payer MEDICARE, BC | LOC: M WHC 10:29 | PROVIDERS: ATTEND Family Medicine | DX: Z12.31 Encounter for screening mammogram for malignant neoplasm of breast (principal); R92.313 Mammographic fatty tissue density, bilateral breasts; Z13.820 Encounter for screening for osteoporosis; M85.88 Other specified disorders of bone density and structure, other site ==

== ENCOUNTER → 2025-02-09 | Outpatient (CLI) | payer MEDICARE, BC ==
[2025-02-09 15:33] LABS: BASO # 0.1 10^3/uL (0.0-0.2); BASO % 0.9 % (0.0-1.0); EOS # 0.2 10^3/uL (0.0-0.5); EOS % 2.1 % (0.0-3.0); LYMPH # 2.1 10^3/uL (1.5-5.0); LYMPH % 24.6 % (24.0-44.0); MONO # 1.4 10^3/uL (0.0-0.8); MONO % 16.3 % (2.0-8.0); NEUTROPHILS # 4.8 10^3/uL (1.5-8.5); NEUTROPHILS % 55.7 % (36.0-66.0); PLATELET COUNT, AUTOMATED 465 10^3/uL (150-450)
[2025-02-09 16:00] LABS: ALT/SGPT 15.0 U/L (7.0-40); AST/SGOT 20.0 U/L (<34); CALCIUM LEVEL 9.7 MG/DL (8.3-10.6); CARBON DIOXIDE LEVEL 27.0 MMOL/L (20-31); CHLORIDE LEVEL 98.0 MMOL/L (98-107); CREATININE FOR GFR 0.75 MG/DL (0.55-1.30); GLOMERULAR FILTRATION RATE 83.5 (>39); IRON (FE) 94.0 UG/DL (50-170); PERCENT SATURATION 29.7 % (13.2-45.0); POTASSIUM SERUM 5.0 MMOL/L (3.5-5.1); SODIUM LEVEL 135.0 MMOL/L (136-145)
== END ==
LOC: M PLALAB 11:40
PROVIDERS: ATTEND Orthopaedic Surgery
DX: Z01.812 Encounter for preprocedural laboratory examination (principal); M25.551 Pain in right hip; Z13.0 Encounter for screening for diseases of the blood and blood-forming organs and certain disorders involving the immune mechanism; T56.891A Toxic effect of other metals, accidental (unintentional), initial encounter

== ENCOUNTER → 2025-03-04 | Outpatient (REF) ==
[2025-03-04 11:54] LABS: PLATELET COUNT, AUTOMATED 504 10^3/uL (150-450)
[2025-03-04 12:01] LABS: CALCIUM LEVEL 8.7 MG/DL (8.3-10.6); CARBON DIOXIDE LEVEL 26 MMOL/L (20-31); CHLORIDE LEVEL 99 MMOL/L (98-107); CREATININE FOR GFR 0.56 MG/DL (0.55-1.30); GLOMERULAR FILTRATION RATE > 90.0 (>39); POTASSIUM SERUM 4.0 MMOL/L (3.5-5.1); SODIUM LEVEL 137 MMOL/L (136-145)
== END ==
PROVIDERS: ATTEND Physician Assistant
DX: Z47.1 Aftercare following joint replacement surgery (principal); Z96.641 Presence of right artificial hip joint

== ENCOUNTER → 2025-03-05 | Outpatient (REF) | PROVIDERS: ATTEND Physician Assistant | DX: D72.829 Elevated white blood cell count, unspecified (principal); Z53.8 Procedure and treatment not carried out for other reasons ==

== ENCOUNTER → 2025-03-06 | Outpatient (REF) ==
[2025-03-06 10:14] LABS: PLATELET COUNT, AUTOMATED 597 10^3/uL (150-450)
[2025-03-06 10:31] LABS: CALCIUM LEVEL 9.0 MG/DL (8.3-10.6); CARBON DIOXIDE LEVEL 24 MMOL/L (20-31); CHLORIDE LEVEL 102 MMOL/L (98-107); CREATININE FOR GFR 0.62 MG/DL (0.55-1.30); GLOMERULAR FILTRATION RATE > 90.0 (>39); POTASSIUM SERUM 4.4 MMOL/L (3.5-5.1); SODIUM LEVEL 140 MMOL/L (136-145)
== END ==
PROVIDERS: ATTEND Physician Assistant
DX: D72.829 Elevated white blood cell count, unspecified (principal); R06.02 Shortness of breath

== ENCOUNTER → 2025-03-09 | Outpatient (REF) | PROVIDERS: ATTEND Physician Assistant | DX: Z47.1 Aftercare following joint replacement surgery (principal); Z96.641 Presence of right artificial hip joint; Z53.8 Procedure and treatment not carried out for other reasons ==

== ENCOUNTER → 2025-03-09 | Outpatient (REF) ==
[2025-03-09 10:14] LABS: BASO # 0.1 10^3/uL (0.0-0.2); BASO % 1.0 % (0.0-1.0); EOS # 0.5 10^3/uL (0.0-0.5); EOS % 4.3 % (0.0-3.0); LYMPH # 1.3 10^3/uL (1.5-5.0); LYMPH % 12.2 % (24.0-44.0); MONO # 1.3 10^3/uL (0.0-0.8); MONO % 12.9 % (2.0-8.0); NEUTROPHILS # 7.1 10^3/uL (1.5-8.5); NEUTROPHILS % 68.9 % (36.0-66.0); PLATELET COUNT, AUTOMATED 675 10^3/uL (150-450)
[2025-03-09 10:38] LABS: CALCIUM LEVEL 9.1 MG/DL (8.3-10.6); CARBON DIOXIDE LEVEL 20 MMOL/L (20-31); CHLORIDE LEVEL 101 MMOL/L (98-107); CREATININE FOR GFR 0.62 MG/DL (0.55-1.30); GLOMERULAR FILTRATION RATE > 90.0 (>39); POTASSIUM SERUM 4.2 MMOL/L (3.5-5.1); SODIUM LEVEL 137 MMOL/L (136-145)
== END ==
PROVIDERS: ATTEND Physician Assistant
DX: D72.829 Elevated white blood cell count, unspecified (principal)

== ENCOUNTER → 2025-03-09 | Outpatient (REF) | PROVIDERS: ATTEND Physician Assistant | DX: Z47.1 Aftercare following joint replacement surgery (principal); Z96.641 Presence of right artificial hip joint; Z53.8 Procedure and treatment not carried out for other reasons ==